=== PATIENT | male | born 1955 | race Caucasian/White ===

== ENCOUNTER 2016-11-02 10:06 | Day surgery (SDC) | END 2016-11-02 12:07 | disposition home or self-care (01) | DX: Z12.11 Encounter for screening for malignant neoplasm of colon (principal); K21.0 Gastro-esophageal reflux disease with esophagitis; K64.4 Residual hemorrhoidal skin tags; K25.9 Gastric ulcer, unspecified as acute or chronic, without hemorrhage or perforation; I10 Essential (primary) hypertension; J44.9 Chronic obstructive pulmonary disease, unspecified; F41.8 Other specified anxiety disorders | CPT/HCPCS: 43239; 45378; 88305; 88312; 88313; Z7610 ==

== ENCOUNTER 2016-11-18 15:57 | Inpatient (IN) | payer OTHER ==
[~2016-11-18] VITALS: Ht 180.3 cm; Wt 76.0 kg
[~2016-11-18 15:57] MED LIST: 2 INHALERS INH; ASPI81TA3 PO; CITA-104 PO; GABAPENTIN PO; LISI40TA9 PO; LORA10CA PO; OMEP20CA16 PO
[2016-11-18 20:00] VITALS: BP 139/86; RESP 16
[2016-11-18] MEDS ORDERED: DEXTROSE 5%-0.45% NACL 1,000 ML IV SCH (21:00)
[2016-11-18] MEDS: morphine 4 MG/ML VIAL IV PRN (21:14)
[2016-11-18] MEDS ORDERED: ONDANSETRON 4 MG INJ IV PRN (22:30)
[2016-11-18] MEDS ORDERED: LORAZEPAM 2 MG INJ IV ONE (22:30)
[2016-11-18] MEDS ORDERED: KETOROLAC 30 MG INJ IV PRN (22:30)
[2016-11-19] VITALS (9 sets, daily range): BP systolic 106–138; BP diastolic 60–76; PULSE 82–90; RESP 18–20; Ht 180.3 cm; Wt 76.0 kg
[2016-11-19] MEDS ORDERED: DICY10CA60 PO (02:42)
[2016-11-19] MEDS ORDERED: METH500T8 PO (02:42)
[2016-11-19] MEDS ORDERED: METO5TAB11 PO (02:42)
[2016-11-19] MEDS ORDERED: IPRA4AER INHALATION (02:42)
[2016-11-19] MEDS ORDERED: BECL8.7A5 INH (02:42)
[2016-11-19] MEDS ORDERED: DEXTROSE 5%-0.9% NACL 1,000 ML IV SCH (06:00)
[2016-11-19 06:08] LABS: ADD SCAN DIFF NO
[2016-11-19 06:17] LABS: BASOPHILS % 0.1 % (0.0-2.0); EOSINOPHILS % 0.2 % (0.0-7.0); HEMATOCRIT 35.6 % (42.0-52.0); HEMOGLOBIN 12.9 g/dl (14.0-18.0); LYMPHOCYTES # 1.8 10^3/ul (0.8-2.9); LYMPHOCYTES % 16.8 % (15.0-51.0); MEAN CORPUSCULAR HEMOGLOBIN 32.3 pg (29.0-33.0); MEAN CORPUSCULAR HGB CONC 36.2 g/dl (32.0-37.0); MEAN CORPUSCULAR VOLUME 89.2 fl (82.0-101.0); MEAN PLATELET VOLUME 9.1 fl (7.4-10.4); MONOCYTE # 1.1 10^3/ul (0.3-0.9); MONOCYTES % 10.9 % (0.0-11.0); NEUTROPHIL # 7.5 10^3/ul (1.6-7.5); NEUTROPHILS % 71.6 % (39.0-77.0); PLATELET COUNT 319 10^3/UL (140-415); RED BLOOD COUNT 3.99 10^6/ul (4.70-6.10); RED CELL DISTRIBUTION WIDTH 11.9 % (11.5-14.5); WHITE BLOOD COUNT 10.4 10^3/ul (4.8-10.8)
--- NOTE | 2016-11-19 06:23 | HP ---
DATE OF ADMISSION: 11/18/2016 TIME SEEN: 2300 CHIEF COMPLAINT: Abdominal pain, distention, and nausea. HISTORY OF PRESENT ILLNESS: The patient is a 61-year-old male with a history of COPD, GERD, hyperte nsion, diabetes, anxiety, depression, and surgical history of appendectomy who was transferred from [facility] for insurance reasons after he presented with abdominal pain, distention, and na usea. He said symptoms have been going on for a few days. At [place], CT abdomen and pelvis was done which showed distal small bowel obstruction. The patient's abdomen is somewhat distended. Of note, the patient was here 3 weeks ago and had screening colonoscopy which showed minimal external hemorrhoids. The patient denied fever, chills, chest pain, shortness of breath. He does, however, report a history of urinary retention and difficulty urinating. Once he was admitted, a bladder sca nner showed 600 mL of urine. The NG tube to low intermittent suction has been ordered. REVIEW OF SYSTEMS: A 12-point review was performed and is negative except as mentioned in HPI. PAST MEDICAL HISTORY: As per HPI. PAST SURGICAL HISTORY: Appendectomy and nose surgery. SOCIAL HISTORY: He drinks occasionally. He also has a history of marijuana and methamphetamine use . Last meth use was a month ago and marijuana 2 days ago. ALLERGIES: NO KNOWN DRUG ALLERGIES. HOME MEDICATIONS: 1. Claritin. 2. Albuterol. 3. Bentyl. 4. Methocarbamol. 5. Lisinopril. 6. Aspirin. 7. Citalopram q.4h. 8. Reglan. 9. Prilosec. 10. Gabapentin. PHYSICAL EXAMINATION: VITAL SIGNS: Stable. GENERAL: The patient slightly looks comfortable; however, answering questions appropriately. HEENT: No obvious head deformity. Pupils are reactive to light. Extraocular muscles intact. CARDIOVASCULAR: Slightly tachycardic with regular rhythm. LUNGS: Clear. ABDOMEN: Distended, tender to palpation. There are hypoactive bowel sounds. EXTREMITIES: No edema. NEUROLOGIC: No focal deficits. LABORATORY: From [facility] shows a sodium of 120. IMAGING: From outside hospital shows distal small bowel obstruction IMPRESSION: 1. Distal small bowel obstruction. 2. Abdominal pain and distention, secondary to above. 3. Hyponatremia, per outside hospital results. 4. History of chronic obstructive pulmonary disease. 5. History of gastroesophageal reflux disease. 6. History of hypertension. 7. History of anxiety and depression. 8. History of diabetes. PLAN: Will keep n.p.o. with IV fluid. We will provide pain medication and antiemetics as needed. N G tube to low intermittent suction. We will place a surgical consult. Will hold his oral medicatio n for now. Further workup and management per clinical course. Dictated By: JEFFERSON MURGUIA/NUZHAT Conf#: [id number] DID#: [id number]
[2016-11-19 06:25] LABS: POTASSIUM 4.6 mmol/L (3.5-5.1)
[2016-11-19 06:27] LABS: CREATININE 1.19 mg/dl (0.61-1.24)
[2016-11-19 06:28] LABS: ALBUMIN/GLOBULIN RATIO 1.21; BILIRUBIN,INDIRECT 0.3 mg/dl (0-1.1); BILIRUBIN,TOTAL 0.3 mg/dl (0.2-1.3); TOTAL PROTEIN 7.3 g/dl (6.1-8.1)
[2016-11-19 06:29] LABS: CALCIUM 9.2 mg/dl (8.4-10.2)
[2016-11-19] MEDS ORDERED: BARIUM SULF 2% 450 ML BTL (BERRY SMOOTHIE) PO ONE (06:30)
[2016-11-19] MEDS: morphine 4 MG/ML VIAL IV PRN ×3 (06:36→18:16)
[2016-11-19] MEDS ORDERED: DEXTROSE 5%-0.9% NACL 1,000 ML IV ONE (07:30)
[2016-11-19] MEDS ORDERED: NON-FORMULARY/PATIENT OWN MED (Albuterol/Ipratropium* (Combivent Respimat*) 2 PUFF) INHALATION SCH (09:00)
[2016-11-19] MEDS ORDERED: BECLOMETHASONE DIP INH SCH (09:00)
[2016-11-19] MEDS ORDERED: LORAZEPAM 2 MG INJ IV ONE (09:00)
[2016-11-19] MEDS: MOMETASONE 0.24 GM INHALER INH SCH ×2 (09:00→22:32)
[2016-11-19] MEDS: IPRATROPIUM (HFA) 12.9 GM INHALER INH SCH (09:00)
[2016-11-19] MEDS: ALBUTEROL HFA 8 GM INHALER INH SCH (09:00)
--- NOTE | 2016-11-19 12:11 | PN ---
Date/Time of Note Date/Time of Note DATE: 11/19/16 TIME: 12:05 Assessment/Plan VTE Prophylaxis VTE Prophylaxis Intervention: SCD's Lines/Catheters IV Catheter Type (from Nrs): Peripheral IV Urinary Cath still in place: No Assessment/Plan Assessment/Plan 1. Distal small bowel obstruction. 2. Severey Hyponatremia with Na 120 3. Hyponatremia, per outside hospital results. 4. History of chronic obstructive pulmonary disease. 5. History of gastroesophageal reflux disease. 6. History of hypertension. 7. History of anxiety and depression. 8. History of diabetes Plan: telemetry monitoring, NS with KCL 10mEQ At 80 cc/hr pt recently had a colonoscopy done on 11/02/[address]Nagaraja Santo - will request consult for him NG tube placement as soon as possible and place it on intermittent suction Ward catheter placement ativan 2 mg iV x1 now then repeat one more dose if needed General surgery has been consulted from ED Subjective 24 Hr Interval Summary Free Text/Dictation not able to place NG tube, C/o abdominal pain Exam/Review of Systems Vital Signs Vitals Vital Signs Date Time Temp Pulse Resp B/P Pulse Ox O2 Delivery O2 Flow Rate FiO2 11/19/16 11:00 97.2 85 20 118/63 93 11/19/16 05:00 Room Air Intake and Output 11/18/16 11/18/16 11/19/16 15:00 23:00 07:00 Intake Total 750 ml Output Total 600 ml Balance 150 ml Exam GENERALuncomfortable due to abdominal pain HEENT: No obvious head deformity. Pupils are reactive to light. Extraocular muscles intact. CARDIOVASCULAR: Slightly tachycardic with regular rhythm. LUNGS: Clear. ABDOMEN: Distended, tender to palpation. There are hypoactive bowel sounds. EXTREMITIES: No edema. NEUROLOGIC: No focal deficits. Results Result Diagram: 11/19/16 0555 11/19/16 0555 Results 24 hrs Laboratory Tests Test 11/19/16 05:55 White Blood Count 10.4 Red Blood Count 3.99 L Hemoglobin 12.9 L Hematocrit 35.6 L Mean Corpuscular Volume 89.2 Mean Corpuscular Hemoglobin 32.3 Mean Corpuscular Hemoglobin Concent 36.2 Red Cell Distribution Width 11.9 Platelet Count 319 Mean Platelet Volume 9.1 Neutrophils % 71.6 Lymphocytes % 16.8 Monocytes % 10.9 Eosinophils % 0.2 Basophils % 0.1 Nucleated Red Blood Cells % 0.0 Neutrophils # 7.5 Lymphocytes # 1.8 Monocytes # 1.1 H Eosinophils # 0.0 Basophils # 0.0 Nucleated Red Blood Cells # 0.0 Sodium Level 120 L Potassium Level 4.6 Chloride Level 90 L Carbon Dioxide Level 20 L Anion Gap 15 Blood Urea Nitrogen 19 Creatinine 1.19 Glucose Level 128 Calcium Level 9.2 Total Bilirubin 0.3 Direct Bilirubin 0.00 Indirect Bilirubin 0.3 Aspartate Amino Transf (AST/SGOT) 25 Alanine Aminotransferase (ALT/SGPT) 32 Alkaline Phosphatase 114 Total Protein 7.3 Albumin 4.0 Globulin 3.30 H Albumin/Globulin Ratio 1.21 Medications Medications Current Medications Morphine Sulfate (morphine) 4 mg Q4H PRN IV PAIN Last administered on 11/19/16 06:36; Admin Dose 4 MG; Start 11/18/16 at 21:00 Ketorolac Tromethamine (Toradol) 30 mg Q6H PRN IV PAIN Last administered on 11/18 22:16; Admin Dose 30 MG; Start 11/18/16 at 22:30; Stop 11/21/16 at 22:29 Ondansetron HCl (Zofran Inj) 4 mg Q6H PRN IV NAUSEA AND/OR VOMITING; Start 11/18 at 22:30 Albuterol (Ventolin Hfa) 2 puff DAILY INH ; Start 11/19/16 at 09:00 Ipratropium [place] (Atrovent Hfa) 2 puff DAILY INH ; Start 11/19/16 at 09:00 Mometasone Furoate (Asmanex) 1 puff BID INH ; Start 11/19/16 at 09:00 ZAC DOLAN MD Nov 19, 2016 12:11
[2016-11-19] MEDS ORDERED: IOHEXOL 300MG/ML 30 ML BTL ONE (12:20)
[2016-11-19] MEDS ORDERED: ONDANSETRON 4 MG INJ IV PRN (12:30)
[2016-11-19] MEDS: LORAZEPAM 2 MG INJ IV PRN ×2 (12:46→22:30)
--- NOTE | 2016-11-19 14:45 | RADRPT ---
PROCEDURE: XR Chest. CLINICAL INDICATION: Check nasogastric tube position. TECHNIQUE: Single frontal view. COMPARISON: None. FINDINGS: The nasogastric tube tip is in the stomach. The lungs are clear. The heart size is normal. There is no pleural effusion. There is no pneumothorax. IMPRESSION: 1. Nasogastric tube tip in the stomach. 2. Clear lungs. RPTAT: QQ .Mando Edge MD, MD Date Time Electronically viewed and signed by .Mando Edge MD, MD on 11/19/2016 14:45 .R/
[2016-11-19] MEDS: POTASSIUM CHLORIDE 10 MEQ in SOD CHLORIDE 0.45% 1,000 ML IV SCH (15:12)
[2016-11-19] MEDS ORDERED: SOD CHLORIDE 0.9% 100 ML ONE (18:08)
[2016-11-19] MEDS ORDERED: IOHEXOL 300MG/ML 150 ML BTL ONE (18:08)
--- NOTE | 2016-11-19 19:52 | RADRPT ---
AMENDMENT: 11/19/2016 9:38:46 PM Sandor Ruano M.d Correction: FINDINGS: Small bowel: and IMPRESSION: High-grade small bowel obstruction of the distal ileum with the transition point in the right anteri or mid pelvis with approximate 8 cm long segment of wall thickening in the distal ileum distal to th e transition point and milder wall thickening in the distal ileum proximal to the transition point T he findings could be secondary to infectious/inflammatory bowel disease or possibly neoplasm. Dilat ed small bowel loops containing air and fluid with maximum diameter approximately 6.1 cm. Please se e above. PROCEDURE: CT Abdomen and Pelvis with contrast. CLINICAL INDICATION: Small bowel obstruction TECHNIQUE: CT scan of the abdomen and pelvis with contrast was performed on a multidetector high-r Synergy Hubolution CT scanner. 90 cc of Omnipaque-300 was injected intravenously.. Oral contrast was administ ered. Coronal and sagittal reformatted images were obtained from the axial source images. Images wer e reviewed on a high-resolution PACS workstation. The total exam CTDI equals 11.88 mGy and the tota l exam DLP equals 682.25 mGy-cm. One or more of the following dose reduction techniques were used: - Automated exposure control. - Adjustment of the mA and/or kV according to patient size. - Use of iterative reconstruction technique. COMPARISON: None. FINDINGS: Lungs: Mild dependent atelectasis is seen in the posterior lower lungs. Linear atelectasis/fibrosis is seen at the lung bases. Liver: There is a 7 mm cyst in the upper left lobe of the liver. No imaging follow-up of this is re commended . Gallbladder: There is vicarious excretion of contrast material into the gallbladder. Spleen: No abnormality seen. Stomach: Nasogastric tube in stomach. Pancreas: No abnormality seen. Adrenals: No abnormality seen. Kidneys: No abnormality seen. Abdominal aorta: No aneurysm seen. Atherosclerotic calcification is seen. Lymph nodes: Several less than 1 cm short axis lymph nodes are apparent in the mesentery in the rig ht lower quadrant/upper right pelvis. Small bowel: There is a high-grade small bowel obstruction of the distal ileum with the transition p oint in the right anterior mid pelvis with no wall thickening in the distal ileum. The findings cou ld be secondary to infectious/inflammatory bowel disease or possibly neoplasm. Dilated small bowel loops containing air and fluid with maximum diameter approximately 6.1 cm Colon: No abnormality seen. Appendix: Appendectomy. Bladder: No abnormality seen Pelvic organs: No abnormality seen Ascites: None seen. No pneumoperitoneum is seen. Osseous structures: Lumbar spondylosis. Mild degenerative changes at sacroiliac joints and hips. S mall scattered likely bone islands. Mild curvature of lumbar spine with convexity to the left. Very small umbilical hernia containing fat only. IMPRESSION: High-grade small bowel obstruction of the distal ileum with the transition point in the right anteri or mid pelvis with no wall thickening in the distal ileum. The findings could be secondary to infec tious/inflammatory bowel disease or possibly neoplasm. Dilated small bowel loops containing air and fluid with maximum diameter approximately 6.1 cm. Please see above. RPTAT: HJES .Sandor Ruano MD, Date Time Electronically viewed and signed by .Sandor Ruano MD, on 11/19/2016 21:38 .S/
[2016-11-19] MEDS: metroNIDAZOLE 500 MG/NS (PMX) 100 ML IVPB SCH (22:32)
[2016-11-19] MEDS: METHYLPREDNISOLONE 40 MG INJ IV SCH (22:32)
[2016-11-19] MEDS: LEVOFLOXACIN 500MG/D5W (PMX) 100 ML IVPB SCH (22:37)
--- NOTE | 2016-11-19 23:05 | CONS ---
DATE OF ADMISSION: 11/18/2016 DATE OF CONSULTATION: TYPE OF CONSULTATION: Gastroenterology. Dear Dr. Pickering: Thank you for asking me to see Mr. El in GI consultation. HISTORY OF PRESENT ILLNESS: The patient, as you know, is a 61-year-old white gentleman has been exp eriencing abdominal pain, abdominal distention and lack of bowel movement for the past several days, although he did say he had a bowel movement 2 days ago. He had a colonoscopy about 15 days ago whic h was unremarkable. He developed abdominal pain and distention. He went to the emergency room at [facility]. He was given some treatment which made him feel good and then he continued to work. Again today he went to the emergency room at [facility], where the CAT sca n of the abdomen showed evidence of a small-bowel obstruction. At this time, the patient continues to complain of abdominal pain, no bowel movement for 2 days and not passing gas now. PAST MEDICAL HISTORY: He had appendectomy. PHYSICAL EXAMINATION: GENERAL: The patient is a 61-year-old white gentleman who at this time is alert, is well built. VITAL SIGNS: He is afebrile and G-tube showing evidence of dark greenish liquid. Pulse is 78, bloo d pressure is 110/78. CARDIOVASCULAR: Normal heart sounds. RESPIRATORY: Normal breath sounds. ABDOMEN: Showed a soft abdomen which is distended and no rebound tenderness. Surgical scar noted i n the right lower abdomen from his esophagectomy. RECTAL: Exam showed empty rectum. LABORATORY WORKUP: WBC count 10,400, hemoglobin 12.9. Chemistry: Potassium is 4.6. Sodium is 120 , BUN 19, bilirubin 0.3. The CAT scan of the abdomen at [facility] showed small-bowel obstruction. The repeat CAT scan of abdomen pending from [facility]. Rule out adhesions, rule out neoplasm. PLAN: At this time, discussed with Dr. Gee who is a surgeon and he will follow the patient. Onc e again, doctor, thank you for this consultation. Dictated By: HARRIS DWYER MD NC/NTS Conf#: [id number] DID#: [id number] CC: LIANG GEE MD;*EndCC*
[2016-11-20] VITALS (12 sets, daily range): BP systolic 130–160; BP diastolic 63–86; PULSE 85–107; RESP 16–20
--- NOTE | 2016-11-20 03:13 | CONS ---
DATE OF ADMISSION: 11/18/2016 DATE OF CONSULTATION: 11/19/2016 REQUESTING PHYSICIAN: Dr. Danny Bautista and Dr. Reuben Leyva HISTORY OF PRESENT ILLNESS: This is a 61-year-old male who was transferred from [facility] to [facility] because of insurance problems, but the patient was diagnosed with a bdominal pain, distention, and nausea and distal small bowel obstruction. Also, when the patient pr esented to the hospital here, a bladder scan showed 600 mL of urine inside his bladder. Attempts to insert a Ward catheter were not successful. Therefore, a urological consultation was requested. The patient presently appears to be somehow confused. He just pulled out his NG tube. He denies candelaria michael a problem with his urination before. The review of his record indicates that he was at this spital about 3 weeks earlier and underwent a colonoscopy and was diagnosed with minimal external hem orrhoids. PAST MEDICAL HISTORY: He does have a history of COPD, gastroesophageal reflux disease, hypertension , diabetes, anxiety, and depression. PAST SURGICAL HISTORY: Includes a history of appendectomy. The patient also has had nose surgery i n the past. REVIEW OF SYSTEMS: Except for what is mentioned above, all the other systems were mentioned negativ e. SOCIAL HISTORY: Drinks occasionally. He does use marijuana and methamphetamine sometimes. HOME MEDICATIONS: Included 1. Claritin. 2. Albuterol. 3. Bentyl. 4. Methocarbamol. 5. Lisinopril. 6. Aspirin. 7. Citalopram. 8. Reglan. 9. Prilosec. 10. Gabapentin. HOSPITAL MEDICATIONS: Include 1. Protonix. 2. Potassium chloride. 3. Zofran. 4. Lorazepam. 5. Albuterol. 6. Ipratropium. 7. Asmanex. 8. Toradol. 9. Zofran 10. Morphine. PHYSICAL EXAMINATION: GENERAL: Reveals a 61-year-old male. He weighs about 76 kilograms. His height is 71. ABDOMEN: A little distended. The patient again just pulled out his NG tube. GENITALIA: Appear normal. EXTREMITIES: Reveal no edema. LABORATORY DATA: His CBC shows a white count of 10.4, hemoglobin 12.9, hematocrit 35.6. BUN is 19, creatinine 1.19, sodium 120, potassium 4.6, chloride 90, CO2 20. Abdominal CT scan showed high gra de small bowel obstruction of the distal ileum with a transition point in the right anterior mid pel vis with no wall thickening of the distal ileum. The findings could be secondary to infectious infl ammatory bowel disease or possibly neoplasm, dilated small bowel loops containing air and fluid with maximal diameter of approximately 6.1 cm. IMPRESSION: Small bowel obstruction and possible urinary retention. PLAN: I went ahead and prepped his genital area and gave him lidocaine gel in the urethra, and then I inserted a 14-Grenadian coude catheter, and that went in without any difficulty. Clear urine was ob tained and sent for culture and sensitivity. Dictated By: PARAG TURNER/NUZHAT Conf#: [id number] DID#: [id number]
--- NOTE | 2016-11-20 03:48 | CONS ---
DATE OF ADMISSION: 11/18/2016 DATE OF CONSULTATION: 11/19/2016 HISTORY OF PRESENT ILLNESS: Mr. El is a 61-year-old male who went to [facility] emergency room on Saturday due to abdominal pain, distention, and nausea. He states he has had abdominal symptoms for approximately 9 months where he gets constipated and has difficulty passing gas and having a nori wel movement. He had a recent colonoscopy 2 weeks ago which was normal. He was given some kind of cocktail in the ER and discharged but came back on Saturday with similar symptoms. He was then transf erred to our hospital. PAST MEDICAL HISTORY: Significant for COPD, GERD, hypertension, diabetes, anxiety, and depression. PAST SURGICAL HISTORY: Open appendectomy in the distant past and no surgery. SOCIAL HISTORY: Drinks occasionally. Also, history of marijuana and methamphetamine use. MEDICATIONS: 1. Claritin. 2. Albuterol. 3. Bentyl. 4. Methocarbamol. 5. Lisinopril. 6. Aspirin. 7. Citalopram. 8. Reglan. 9. Prilosec. 10. Gabapentin. ALLERGIES: NO KNOWN DRUG ALLERGIES. PHYSICAL EXAMINATION: GENERAL: The patient is a well-developed, well-nourished male in no apparent distress. VITAL SIGNS: He is currently afebrile. Vital signs stable. CHEST: Clear to auscultation bilaterally. HEART: Regular rhythm. ABDOMEN: Soft, mildly distended but with minimal tenderness. LABORATORY DATA: Revealed a white count of 11, hematocrit 36, platelets of 319. Sodium 120, potass ium 4.6, chloride 90, CO2 20, BUN and creatinine 19 and 1.2, and a glucose of 128. He did have a CT today with oral and IV contrast which revealed a small bowel obstruction of the distal ileum with a transition point in the right anterior mid pelvis with wall thickening of the distal ileum. This c ould be secondary to infectious or inflammatory bowel disease or possible neoplasm. ASSESSMENT AND PLAN: Mr. El is a 61-year-old male with a small bowel obstruction, likely infecti ous or inflammatory in etiology. 1. IV antibiotics. 2. IV steroids. 3. Would try to treat conservatively. This most likely should respond to IV antibiotics or IV ster oids. If it does not resolve, may require laparotomy. I discussed also with Dr. Santo the patient may need a colonoscopy for diagnosis as well. Dictated By: LIANG SIMMONS/NUZHAT Conf#: [id number] DID#: [id number]
[2016-11-20] MEDS: METHYLPREDNISOLONE 40 MG INJ IV SCH ×3 (05:36→22:57)
[2016-11-20] MEDS: PANTOPRAZOLE 40 MG INJ IV SCH (05:36)
[2016-11-20] MEDS: metroNIDAZOLE 500 MG/NS (PMX) 100 ML IVPB SCH ×3 (05:37→22:56)
[2016-11-20] MEDS: POTASSIUM CHLORIDE 10 MEQ in SOD CHLORIDE 0.45% 1,000 ML IV SCH (05:37)
[2016-11-20] MEDS: LORAZEPAM 2 MG INJ IV PRN (06:03)
--- NOTE | 2016-11-20 08:57 | RADRPT ---
PROCEDURE: Chest Radiograph. CLINICAL INDICATION: Nasogastric tube placement TECHNIQUE: Single frontal chest radiograph. COMPARISON: Chest radiograph 11/19/2016 FINDINGS: The cardiomediastinal silhouette is within normal limits. A nasogastric tube is in place. The dist al tip is at the level of the gastroesophageal junction and the proximal side hole is in the mid to distal esophagus. No infiltrate or effusion is seen. The bones are intact. IMPRESSION: 1. Nasogastric tube with distal tip at the gastroesophageal junction. Recommend advancement by tone roximately 8 cm. 2. No evidence of acute cardiopulmonary disease. RPTAT: KK .Lars Menjivar MD, MD Date Time Electronically viewed and signed by .Lars Menjivar MD, on 11/20/2016 08:57 .B/
[2016-11-20] MEDS: ALBUTEROL HFA 8 GM INHALER INH SCH (09:00)
[2016-11-20] MEDS: MOMETASONE 0.24 GM INHALER INH SCH ×2 (09:00→22:57)
[2016-11-20] MEDS: IPRATROPIUM (HFA) 12.9 GM INHALER INH SCH (09:00)
--- NOTE | 2016-11-20 12:43 | RADRPT ---
PROCEDURE: XR Abdomen. CLINICAL INDICATION: Small bowel obstruction. TECHNIQUE: Two views. AP supine and AP erect. COMPARISON: CT scan of the abdomen and pelvis dated 11/19/2016 which demonstrated small bowel obst ruction with transition point in the right anterior pelvis. FINDINGS: There is no free air. The nasogastric tube tip is in the stomach. There are multiple dilated loops of small bowel with air-fluid levels consistent with small bowel ob struction as seen on the prior study. There are no abnormal calcifications overlying the urinary tracts. There are degenerative changes of the spine. IMPRESSION: 1. Nasogastric tube tip in the stomach. 2. Small bowel obstruction, similar to 11/19/2016. RPTAT: QQ .Mando Edge MD, MD Date Time Electronically viewed and signed by .Mando Edge MD, MD on 11/20/2016 12:31 .R/
--- NOTE | 2016-11-20 15:12 | PN ---
Date/Time of Note Date/Time of Note DATE: 11/20/16 TIME: 15:08 Assessment/Plan VTE Prophylaxis VTE Prophylaxis Intervention: SCD's Lines/Catheters IV Catheter Type (from Nrsg): Peripheral IV Urinary Cath still in place: Yes Reason Cath still needed: urinary retention Assessment/Plan Assessment/Plan 1. Distal small bowel obstruction. 2. Severey Hyponatremia with Na 120 3. Hyponatremia, per outside hospital results. 4. History of chronic obstructive pulmonary disease. 5. History of gastroesophageal reflux disease. 6. History of hypertension. 7. History of anxiety and depression. 8. History of diabetes Plan: telemetry monitoring, NS with KCL 10mEQ At 80 cc/hr s/p NG tube placement, S/p schuster catheter placement, by Urology X Ray KUB showed Small bowel obstruction, will order stat BMP and CBC and If Na improving, then pt is cleared to have surgery for bowel obstruciton with appropriate surgical risks and complications, discussed with patient at bedside, currently he is on NS with KCl appreciate general surgery and GI help will follow up Subjective 24 Hr Interval Summary Free Text/Dictation s/p NG Tube placement, KUB showed small bowel obstruction, had a Urinary retention s/p schuster catheter placement by Urolgoy Exam/Review of Systems Vital Signs Vitals Vital Signs Date Time Temp Pulse Resp B/P Pulse Ox O2 Delivery O2 Flow Rate FiO2 11/20/16 12:37 95 11/20/16 11:25 98.3 16 135/63 98 11/19/16 05:00 Room Air Intake and Output 11/19/16 11/19/16 11/20/16 15:00 23:00 07:00 Intake Total 350 ml 650 ml 900 ml Output Total 150 ml 1100 ml Balance 350 ml 500 ml -200 ml Exam GENERALuncomfortable due to abdominal pain HEENT: No obvious head deformity. Pupils are reactive to light. Extraocular muscles intact. CARDIOVASCULAR: Slightly tachycardic with regular rhythm. LUNGS: Clear. ABDOMEN: Distended, tender to palpation. There are hypoactive bowel sounds. EXTREMITIES: No edema. NEUROLOGIC: No focal deficits. Results Result Diagram: 11/19/16 0555 11/19/16 0555 Medications Medications Current Medications Morphine Sulfate (morphine) 4 mg Q4H PRN IV PAIN Last administered on 11/19/16t 18:16; Admin Dose 4 MG; Start 11/18/16 at 21:00 Ketorolac Tromethamine (Toradol) 30 mg Q6H PRN IV PAIN Last administered on 11/18 22:16; Admin Dose 30 MG; Start 11/18/16 at 22:30; Stop 11/21/16 at 22:29 Ondansetron HCl (Zofran Inj) 4 mg Q6H PRN IV NAUSEA AND/OR VOMITING; Start 11/18 at 22:30 Albuterol (Ventolin Hfa) 2 puff DAILY INH ; Start 11/19/16 at 09:00 Ipratropium [place] (Atrovent Hfa) 2 puff DAILY INH ; Start 11/19/16 at 09:00 Mometasone Furoate 1 puff 1 puff BID INH Last administered on 11/19/16 22:32; Admin Dose 1 PUFF; Start 11/19/16 at 09:00 Potassium Chloride/Sodium Chloride (KCl/1/2 NS) 1,005 ml @ 70 mls/hr [id number] IV Last administered on 11/20/16 05:37; Admin Dose 70 MLS/HR; Start 11/19/16 at 13:00 Pantoprazole (Protonix Iv) 40 mg DAILY@06 IV Last administered on 11/20/16 05: 36; Admin Dose 40 MG; Start 11/20/16 at 06:00 Ondansetron HCl (Zofran Inj) 4 mg Q4H PRN IV NAUSEA AND/OR VOMITING; Start 11/19 at 12:30 Lorazepam 1 mg 1 mg Q4H PRN IV severe agitation/Restlessness Last administered on 11/20/16 06:03; Admin Dose 1 MG; Start 11/19/16 at 12:30 Levofloxacin/ Dextrose 100 ml @ 100 mls/hr Q24H IVPB Last administered on 22:37; Admin Dose 100 MLS/HR; Start 11/19/16 at 23:00 Metronidazole (Flagyl 500 Mg (Pmx)) 100 ml @ 100 mls/hr Q8 IVPB Last administered on 11/20/16 05:37; Admin Dose 100 MLS/HR; Start 11/19/16 at 22:00 Methylprednisolone Sodium Succinate (Solu-Medrol) 40 mg Q8 IV Last administered on 11/20/16t 05:36; Admin Dose 40 MG; Start 11/19/16 at 22:00 ZAC DOLAN MD Nov 20, 2016 15:12
[2016-11-20 15:58] LABS: ADD SCAN DIFF NO
[2016-11-20 16:01] LABS: HEMATOCRIT 36.4 % (42.0-52.0); HEMOGLOBIN 12.7 g/dl (14.0-18.0); LYMPHOCYTES # 1.3 10^3/ul (0.8-2.9); LYMPHOCYTES % 22.9 % (15.0-51.0); MEAN CORPUSCULAR HEMOGLOBIN 32.2 pg (29.0-33.0); MEAN CORPUSCULAR HGB CONC 34.9 g/dl (32.0-37.0); MEAN CORPUSCULAR VOLUME 92.4 fl (82.0-101.0); MEAN PLATELET VOLUME 9.2 fl (7.4-10.4); MONOCYTE # 0.4 10^3/ul (0.3-0.9); MONOCYTES % 6.4 % (0.0-11.0); NEUTROPHILS % 70.3 % (39.0-77.0); PLATELET COUNT 335 10^3/UL (140-415); RED BLOOD COUNT 3.94 10^6/ul (4.70-6.10); RED CELL DISTRIBUTION WIDTH 12.1 % (11.5-14.5); WHITE BLOOD COUNT 5.6 10^3/ul (4.8-10.8)
[2016-11-20 16:12] LABS: POTASSIUM 5.2 mmol/L (3.5-5.1)
[2016-11-20 16:15] LABS: CALCIUM 9.2 mg/dl (8.4-10.2); CREATININE 0.97 mg/dl (0.61-1.24)
--- NOTE | 2016-11-20 16:18 | SP ---
DATE OF PROCEDURE: 11/20/2016 SUBJECTIVE: This is hospital day #1 for Mr. El for a small-bowel obstruction. The patient is fe eling much better. He had a bowel movement and is quite hungry. OBJECTIVE: VITAL SIGNS: He is afebrile. Vital signs stable. He has had 1100 out in urine and only 150 out hi s NG tube. ABDOMEN: Soft, nondistended and nontender. IMAGING: Abdominal series today does show persistent obstruction. ASSESSMENT AND PLAN: Mr. El is a 61-year-old male with a resolving small-bowel obstruction. 1. Plan to start on clear liquids with an NG tube clamp trial. 2. Surgery unlikely necessary as this is more likely infectious or inflammatory bowel disease based on CT findings. 3. Appreciate GI consultation. 4. We will discuss with the primary care team as well. Dictated By: LIANG SIMMONS/NTS Conf#: [id number] DID#: [id number]
--- NOTE | 2016-11-20 17:17 | PN ---
DATE: 11/20/2016 SUBJECTIVE: Urinary retention and patient has small-bowel obstruction that is being managed by the medical team. The patient was sitting on the commode and he stated he had a bowel movement while he was in bed and a small one in the commode. The Ward catheter that he had is still in place. OBJECTIVE: VITAL SIGNS: His temperature is 97.8, blood pressure 149/81, pulse is 91, respiration is 16. GENITOURINARY: The Ward catheter, again, is draining clear urine. LABORATORY DATA: Urine culture, no growth after 24 hours. CBC shows a white count of 5.6, hemoglob in 12.7, hematocrit 36.4. BUN is 19, creatinine 0.97, sodium 124, potassium 5.2, chloride 91, CO2 2 0. IMPRESSION: Urinary retention. Patient does have the Ward catheter and he is on Levaquin, Flagyl for his bowel, Protonix and Solu-Medrol. We will start him on Flomax in a sense to prepare him to r emove the Ward catheter and see if he could void when he is ready to have the catheter removed. Dictated By: PARAG ESPAÑA MD BB/NUZHAT Conf#: [id number] DID#: [id number]
[2016-11-20] MEDS: SOD CHLORIDE 0.9% 1,000 ML IV SCH (17:40)
--- NOTE | 2016-11-20 21:04 | CONS ---
DATE OF ADMISSION: 11/18/2016 DATE OF CONSULTATION: CLINICAL IMPRESSION: The patient presenting with history of vomiting, abdominal pain. CAT scan of the abdomen showed evidence of a small-bowel obstruction at another hospital. At this time, the patient said he has had a good bowel movement today and has been passing gas and a bdomen is much less distended. IMAGING: CAT scan of the abdomen shows evidence of thickening and edema of the distal small bowel a nd with the proximal small bowel dilatation. LABORATORY WORKUP: The WBC count is today 5600, hemoglobin 12.7. Potassium 5.2, sodium 124. The patient is currently receiving D5 normal saline. Probably needs to be changed to normal saline. CLINICAL IMPRESSION: Small bowel obstruction seems to be resolving, probably secondary to ileitis o f some kind, whether Crohn disease or infectious ileitis is not very clear. Neoplasm should be rule d out. PLAN: At this time, recommend repeat KUB and see if the NG tube is in the right place. Apparently, the patient already has been started on clear liquids. We would probably have to do colonoscopy in the near future. Once again, doctor, thank you for this consultation. Dictated By: HARRIS DWYER MD NC/NTS Conf#: [id number] DID#: [id number] CC: HARRIS DWYER MD; ALEJANDRO DONALDSON MD;*End*
--- NOTE | 2016-11-20 21:23 | RADRPT ---
PROCEDURE: Abdomen x-ray CLINICAL INDICATION: Small bowel obstruction. TECHNIQUE: Single frontal view the abdomen COMPARISON: Abdomen series dated today, about [address] examination the abdomen pelvis dated 11/19/2016. FINDINGS: Persistent small bowel obstruction pattern, with increased air in loops of small bowel. Partially v isualized nasogastric tube over expected location of the stomach. The lung bases are clear. No unus ual calcifications are identified over the abdomen. IMPRESSION: Persistent small bowel obstruction. RPTAT: [facility]U Physician Allie Date Time Electronically viewed and signed by Chris Singer Physician on 11/20/2016 21:22 RS/
[2016-11-20] MEDS: LEVOFLOXACIN 500MG/D5W (PMX) 100 ML IVPB SCH (22:57)
[2016-11-21] VITALS (12 sets, daily range): BP systolic 135–155; BP diastolic 70–84; PULSE 75–88; RESP 18–20
[2016-11-21] MEDS: LORAZEPAM 2 MG INJ IV PRN ×3 (00:09→20:37)
[2016-11-21] MEDS: METHYLPREDNISOLONE 40 MG INJ IV SCH ×3 (06:17→21:58)
[2016-11-21] MEDS: metroNIDAZOLE 500 MG/NS (PMX) 100 ML IVPB SCH ×3 (06:18→21:58)
[2016-11-21] MEDS: PANTOPRAZOLE 40 MG INJ IV SCH (06:18)
[2016-11-21] MEDS: SOD CHLORIDE 0.9% 1,000 ML IV SCH (07:24)
[2016-11-21 08:28] LABS: ADD SCAN DIFF NO
[2016-11-21 08:42] LABS: HEMATOCRIT 32.1 % (42.0-52.0); HEMOGLOBIN 11.3 g/dl (14.0-18.0); LYMPHOCYTES % 16.4 % (15.0-51.0); MEAN CORPUSCULAR HEMOGLOBIN 32.3 pg (29.0-33.0); MEAN CORPUSCULAR HGB CONC 35.2 g/dl (32.0-37.0); MEAN CORPUSCULAR VOLUME 91.7 fl (82.0-101.0); MEAN PLATELET VOLUME 9.3 fl (7.4-10.4); MONOCYTE # 0.4 10^3/ul (0.3-0.9); MONOCYTES % 6.6 % (0.0-11.0); NEUTROPHIL # 4.4 10^3/ul (1.6-7.5); NEUTROPHILS % 76.5 % (39.0-77.0); PLATELET COUNT 312 10^3/UL (140-415); RED CELL DISTRIBUTION WIDTH 11.7 % (11.5-14.5); WHITE BLOOD COUNT 5.8 10^3/ul (4.8-10.8)
[2016-11-21 08:45] LABS: ALBUMIN 3.6 g/dl (3.3-4.9); POTASSIUM 4.5 mmol/L (3.5-5.1)
[2016-11-21 08:46] LABS: INR 1.11; PROTIME 14.3 Sec (12.2-14.2); PT RATIO 1.1
[2016-11-21 08:47] LABS: CREATININE 0.87 mg/dl (0.61-1.24); PARTIAL THROMBOPLASTIN TIME 30.3 Sec (25.0-35.0)
[2016-11-21 08:48] LABS: ALBUMIN/GLOBULIN RATIO 1.16; BILIRUBIN,INDIRECT 0.2 mg/dl (0-1.1); BILIRUBIN,TOTAL 0.2 mg/dl (0.2-1.3); CALCIUM 8.8 mg/dl (8.4-10.2); TOTAL PROTEIN 6.7 g/dl (6.1-8.1)
[2016-11-21] MEDS: ALBUTEROL HFA 8 GM INHALER INH SCH (09:03)
[2016-11-21] MEDS: MOMETASONE 0.24 GM INHALER INH SCH ×2 (09:03→20:35)
[2016-11-21] MEDS: IPRATROPIUM (HFA) 12.9 GM INHALER INH SCH (09:03)
--- NOTE | 2016-11-21 11:01 | PN ---
Date/Time of Note Date/Time of Note DATE: 11/21/16 TIME: 10:58 Assessment/Plan VTE Prophylaxis VTE Prophylaxis Intervention: SCD's Lines/Catheters IV Catheter Type (from Nrs): Peripheral IV Urinary Cath still in place: Yes Reason Cath still needed: urinary retention Assessment/Plan Assessment/Plan 1. Distal small bowel obstruction.- improving 2. Severey Hyponatremia with Na 120- now improved to 123 but still very low despite gettnig IVF 3. Hyponatremia, per outside hospital results. 4. History of chronic obstructive pulmonary disease. 5. History of gastroesophageal reflux disease. 6. History of hypertension. 7. History of anxiety and depression. 8. History of diabetes 9. acute urinary retention required schuster catheter, s/p Urology consult and follow up Plan: NG tube discontinued, pt had a two BM,. S/p General surgery follow up - no plan for sugical intervention on clear liquids diet today Na still low, will switch his IVF to 1/2 NS ambulate Advancement of diet as per GI/surgery Subjective 24 Hr Interval Summary Free Text/Dictation pt doing better, pain controlled, on clear liquid diet, had two BM, Na still low Exam/Review of Systems Vital Signs Vitals Vital Signs Date Time Temp Pulse Resp B/P Pulse Ox O2 Delivery O2 Flow Rate FiO2 11/21/16 08:05 78 11/21/16 07:44 98.2 19 141/70 95 11/19/16 05:00 Room Air Intake and Output 11/20/16 11/20/16 11/21/16 15:00 23:00 07:00 Intake Total 1620 ml 1400 ml Output Total 1200 ml 2100 ml Balance 420 ml -700 ml Exam GENERALuncomfortable due to abdominal pain HEENT: No obvious head deformity. Pupils are reactive to light. Extraocular muscles intact. CARDIOVASCULAR: Slightly tachycardic with regular rhythm. LUNGS: Clear. ABDOMEN:less, tender to palpation. good BS EXTREMITIES: No edema. NEUROLOGIC: No focal deficits Results Result Diagram: 11/21/16 0711/21/16704 Results 24 hrs Laboratory Tests Test 11/20/16 15:25 11/21/16 07:05 White Blood Count 5.6 # 5.8 Red Blood Count 3.94 L 3.50 L Hemoglobin 12.7 L 11.3 L Hematocrit 36.4 L 32.1 L Mean Corpuscular Volume 92.4 91.7 Mean Corpuscular Hemoglobin 32.2 32.3 Mean Corpuscular Hemoglobin Concent 34.9 35.2 Red Cell Distribution Width 12.1 11.7 Platelet Count 335 312 Mean Platelet Volume 9.2 9.3 Neutrophils % 70.3 76.5 Lymphocytes % 22.9 16.4 Monocytes % 6.4 6.6 Eosinophils % 0.0 0.0 Basophils % 0.0 0.0 Nucleated Red Blood Cells % 0.0 0.0 Neutrophils # 4.0 4.4 Lymphocytes # 1.3 1.0 Monocytes # 0.4 0.4 Eosinophils # 0.0 0.0 Basophils # 0.0 0.0 Nucleated Red Blood Cells # 0.0 0.0 Sodium Level 124 L 123 L Potassium Level 5.2 H 4.5 Chloride Level 91 L 96 L Carbon Dioxide Level 20 L 19 L Anion Gap 18 H 13 Blood Urea Nitrogen 19 16 Creatinine 0.97 0.87 Glucose Level 123 140 Calcium Level 9.2 8.8 Prothrombin Time 14.3 H Prothrombin Time Ratio 1.1 INR International Normalized Ratio 1.11 Activated Partial Thromboplast Time 30.3 Total Bilirubin 0.2 Direct Bilirubin 0.00 Indirect Bilirubin 0.2 Aspartate Amino Transf (AST/SGOT) 16 Alanine Aminotransferase (ALT/SGPT) 26 Alkaline Phosphatase 92 Total Protein 6.7 Albumin 3.6 Globulin 3.10 Albumin/Globulin Ratio 1.16 Medications Medications Current Medications Morphine Sulfate (morphine) 4 mg Q4H PRN IV PAIN Last administered on 11/19/16 18:16; Admin Dose 4 MG; Start 11/18/16 at 21:00 Ketorolac Tromethamine (Toradol) 30 mg Q6H PRN IV PAIN Last administered on 11/18 22:16; Admin Dose 30 MG; Start 11/18/16 at 22:30; Stop 11/21/16 at 22:29 Ondansetron HCl (Zofran Inj) 4 mg Q6H PRN IV NAUSEA AND/OR VOMITING; Start 11/18 at 22:30 Albuterol (Ventolin Hfa) 2 puff DAILY INH Last administered on 11/21/16 09:03; Admin Dose 2 PUFF; Start 11/19/16 at 09:00 Ipratropium [place] (Atrovent Hfa) 2 puff DAILY INH Last administered on 09:03; Admin Dose 2 PUFF; Start 11/19/16 at 09:00 Mometasone Furoate (Asmanex) 1 puff BID INH Last administered on 11/21/16 09:03 ; Admin Dose 1 PUFF; Start 11/19/16 at 09:00 Pantoprazole (Protonix Iv) 40 mg DAILY@06 IV Last administered on 11/21/16 06: 18; Admin Dose 40 MG; Start 11/20/16 at 06:00 Ondansetron HCl (Zofran Inj) 4 mg Q4H PRN IV NAUSEA AND/OR VOMITING; Start 11/19 at 12:30 Lorazepam 1 mg 1 mg Q4H PRN IV severe agitation/Restlessness Last administered on 11/21/16 00:09; Admin Dose 1 MG; Start 11/19/16 at 12:30 Levofloxacin/ Dextrose 100 ml @ 100 mls/hr Q24H IVPB Last administered on 22:57; Admin Dose 100 MLS/HR; Start 11/19/16 at 23:00 Metronidazole (Flagyl 500 Mg (Pmx)) 100 ml @ 100 mls/hr Q8 IVPB Last administered on 11/21/16 06:18; Admin Dose 100 MLS/HR; Start 11/19/16 at 22:00 Methylprednisolone Sodium Succinate 40 mg 40 mg Q8 IV Last administered on 06:17; Admin Dose 40 MG; Start 11/19/16 at 22:00 Sodium Chloride (NS) 1,000 ml @ 70 mls/hr [id number] IV Last administered on 17:40; Admin Dose 70 MLS/HR; Start 11/20/16 at 17:06 ZAC DOLAN MD Nov 21, 2016 11:01
[2016-11-21] MEDS: SOD CHLORIDE 0.45% 1,000 ML IV SCH (11:42)
[2016-11-21] MEDS ORDERED: POTASSIUM CHLORIDE 30 MEQ in DEXTROSE 5% 1,000 ML IV PRN (13:00)
--- NOTE | 2016-11-21 13:32 | PN ---
DATE: 11/21/2016 SUBJECTIVE: Urinary retention and patient does have a small bowel obstruction that appears to be orellana bsiding. In fact, the patient is very happy today that he just had his lunch and he is able to eat, and he had bowel movements. OBJECTIVE VITAL SIGNS: His temperature is 98.8, blood pressure 139/70, pulse is 88, respirations 20. ABDOMEN: Soft and the Ward catheter that he has is draining clear urine. The patient states that he did not have any problem urinating prior to his recent bowel obstruction. LABORATORY DATA: The urine culture showed no growth after 48 hours. The CBC shows a white count of 5.8, hemoglobin 11.3, hematocrit 32.1. BUN is 16, creatinine 0.87, sodium 123, potassium 4.5, chlo ride 96, CO2 19. IMPRESSION: Urinary retention and bowel obstruction that is improving. PLAN: To discontinue the Ward catheter tomorrow morning and then start him on Flomax tonight and monitor his voiding and his postvoid residual with a bladder scan and do straight catheterization ev keri postvoid residual over 300 or if he does not void and the bladder volume is over 500. Dictated By: PARAG TURNER/NUZHAT Conf#: [id number] DID#: [id number]
[2016-11-21] MEDS ORDERED: PEG/ELECTROLYTES 4L BTL PO ONE (14:30)
--- NOTE | 2016-11-21 19:04 | PN ---
Date/Time of Note Date/Time of Note DATE: 11/21/16 TIME: 19:00 Assessment/Plan VTE Prophylaxis VTE Prophylaxis Intervention: other (per pmd) Lines/Catheters IV Catheter Type (from Nrsg): Peripheral IV Urinary Cath still in place: Yes Reason Cath still needed: other (indicate) (per pmd) Assessment/Plan Assessment/Plan ressolving sbo sec prob ileitis infection neoplasm plan colonoscoopy am Subjective 24 Hr Interval Summary Free Text/Dictation no emesis having bms sec to golytely Exam/Review of Systems Vital Signs Vitals Vital Signs Date Time Temp Pulse Resp B/P Pulse Ox O2 Delivery O2 Flow Rate FiO2 11/21/16 16:08 83 11/21/16 15:56 98.2 20 139/74 95 11/19/16 05:00 Room Air Intake and Output 11/20/16 11/20/16 11/21/16 15:00 23:00 07:00 Intake Total 1620 ml 1400 ml Output Total 1200 ml 2100 ml Balance 420 ml -700 ml Exam abd soft no distension tolerating cl liquids and golytely having bms Results Result Diagram: 11/21/16 0705 11/21/16 0705 Results 24 hrs Laboratory Tests Test 11/21/16 07:05 White Blood Count 5.8 Red Blood Count 3.50 L Hemoglobin 11.3 L Hematocrit 32.1 L Mean Corpuscular Volume 91.7 Mean Corpuscular Hemoglobin 32.3 Mean Corpuscular Hemoglobin Concent 35.2 Red Cell Distribution Width 11.7 Platelet Count 312 Mean Platelet Volume 9.3 Neutrophils % 76.5 Lymphocytes % 16.4 Monocytes % 6.6 Eosinophils % 0.0 Basophils % 0.0 Nucleated Red Blood Cells % 0.0 Neutrophils # 4.4 Lymphocytes # 1.0 Monocytes # 0.4 Eosinophils # 0.0 Basophils # 0.0 Nucleated Red Blood Cells # 0.0 Prothrombin Time 14.3 H Prothrombin Time Ratio 1.1 INR International Normalized Ratio 1.11 Activated Partial Thromboplast Time 30.3 Sodium Level 123 L Potassium Level 4.5 Chloride Level 96 L Carbon Dioxide Level 19 L Anion Gap 13 Blood Urea Nitrogen 16 Creatinine 0.87 Glucose Level 140 Calcium Level 8.8 Total Bilirubin 0.2 Direct Bilirubin 0.00 Indirect Bilirubin 0.2 Aspartate Amino Transf (AST/SGOT) 16 Alanine Aminotransferase (ALT/SGPT) 26 Alkaline Phosphatase 92 Total Protein 6.7 Albumin 3.6 Globulin 3.10 Albumin/Globulin Ratio 1.16 Medications Medications Current Medications Morphine Sulfate (morphine) 4 mg Q4H PRN IV PAIN Last administered on 11/19/16 18:16; Admin Dose 4 MG; Start 11/18/16 at 21:00 Ketorolac Tromethamine (Toradol) 30 mg Q6H PRN IV PAIN Last administered on 11/18 22:16; Admin Dose 30 MG; Start 11/18/16 at 22:30; Stop 11/21/16 at 22:29 Ondansetron HCl (Zofran Inj) 4 mg Q6H PRN IV NAUSEA AND/OR VOMITING; Start 11/18 at 22:30 Albuterol (Ventolin Hfa) 2 puff DAILY INH Last administered on 11/21/16 09:03; Admin Dose 2 PUFF; Start 11/19/16 at 09:00 Ipratropium [place] (Atrovent Hfa) 2 puff DAILY INH Last administered on 09:03; Admin Dose 2 PUFF; Start 11/19/16 at 09:00 Mometasone Furoate (Asmanex) 1 puff BID INH Last administered on 11/21/16 09:03 ; Admin Dose 1 PUFF; Start 11/19/16 at 09:00 Pantoprazole (Protonix Iv) 40 mg DAILY@06 IV Last administered on 11/21/16 06: 18; Admin Dose 40 MG; Start 11/20/16 at 06:00 Ondansetron HCl (Zofran Inj) 4 mg Q4H PRN IV NAUSEA AND/OR VOMITING; Start 11/19 at 12:30 Lorazepam 1 mg 1 mg Q4H PRN IV severe agitation/Restlessness Last administered on 11/21/16 11:42; Admin Dose 1 MG; Start 11/19/16 at 12:30 Levofloxacin/ Dextrose 100 ml @ 100 mls/hr Q24H IVPB Last administered on 22:57; Admin Dose 100 MLS/HR; Start 11/19/16 at 23:00 Metronidazole (Flagyl 500 Mg (Pmx)) 100 ml @ 100 mls/hr Q8 IVPB Last administered on 11/21/16 13:59; Admin Dose 100 MLS/HR; Start 11/19/16 at 22:00 Methylprednisolone Sodium Succinate 40 mg 40 mg Q8 IV Last administered on 13:59; Admin Dose 40 MG; Start 11/19/16 at 22:00 Sodium Chloride (1/2 NS) 1,000 ml @ 75 mls/hr [id number] IV Last administered on 11/21/16 11:42; Admin Dose 75 MLS/HR; Start 11/21/16 at 11:00 Tamsulosin HCl 0.4 mg 0.4 mg HS PO ; Start 11/21/16 at 21:00 Potassium Chloride/Dextrose (KCl/D5W) 1,015 ml @ 20 mls/hr Q24H PRN IV PENDING LAB VALUE; Start 11/21/16 at 13:00 HARRIS DWYER MD Nov 21, 2016 19:04
[2016-11-21] MEDS: TAMSULOSIN (SR) 0.4 MG CAP PO SCH (20:37)
[2016-11-21] MEDS: LEVOFLOXACIN 500MG/D5W (PMX) 100 ML IVPB SCH (23:34)
[2016-11-22] VITALS (20 sets, daily range): BP systolic 114–172; BP diastolic 68–96; PULSE 60–83; RESP 17–24
[2016-11-22] MEDS: SOD CHLORIDE 0.45% 1,000 ML IV SCH ×3 (00:20→21:08)
[2016-11-22] MEDS: LORAZEPAM 2 MG INJ IV PRN ×4 (02:54→20:43)
[2016-11-22] MEDS: METHYLPREDNISOLONE 40 MG INJ IV SCH ×3 (05:35→21:05)
[2016-11-22] MEDS: PANTOPRAZOLE 40 MG INJ IV SCH (05:35)
[2016-11-22] MEDS: metroNIDAZOLE 500 MG/NS (PMX) 100 ML IVPB SCH ×3 (05:35→21:00)
[2016-11-22] MEDS ORDERED: PROPOFOL 200 MG INJ ONE (07:00)
[2016-11-22 07:23] LABS: ADD SCAN DIFF NO
[2016-11-22 07:32] LABS: HEMATOCRIT 32.2 % (42.0-52.0); HEMOGLOBIN 11.3 g/dl (14.0-18.0); LYMPHOCYTES # 1.1 10^3/ul (0.8-2.9); LYMPHOCYTES % 18.3 % (15.0-51.0); MEAN CORPUSCULAR HEMOGLOBIN 32.2 pg (29.0-33.0); MEAN CORPUSCULAR HGB CONC 35.1 g/dl (32.0-37.0); MEAN CORPUSCULAR VOLUME 91.7 fl (82.0-101.0); MEAN PLATELET VOLUME 9.2 fl (7.4-10.4); MONOCYTE # 0.3 10^3/ul (0.3-0.9); MONOCYTES % 5.4 % (0.0-11.0); NEUTROPHIL # 4.3 10^3/ul (1.6-7.5); NEUTROPHILS % 75.3 % (39.0-77.0); PLATELET COUNT 307 10^3/UL (140-415); RED BLOOD COUNT 3.51 10^6/ul (4.70-6.10); RED CELL DISTRIBUTION WIDTH 11.7 % (11.5-14.5); WHITE BLOOD COUNT 5.8 10^3/ul (4.8-10.8)
[2016-11-22 07:55] LABS: POTASSIUM 4.5 mmol/L (3.5-5.1)
[2016-11-22 07:57] LABS: CREATININE 0.91 mg/dl (0.61-1.24)
[2016-11-22 07:58] LABS: CALCIUM 8.9 mg/dl (8.4-10.2)
[2016-11-22] MEDS: IPRATROPIUM (HFA) 12.9 GM INHALER INH SCH (08:54)
[2016-11-22] MEDS: ALBUTEROL HFA 8 GM INHALER INH SCH (08:54)
[2016-11-22] MEDS: MOMETASONE 0.24 GM INHALER INH SCH ×2 (08:55→20:44)
--- NOTE | 2016-11-22 12:49 | PN ---
Date/Time of Note Date/Time of Note DATE: 11/22/16 TIME: 12:48 Assessment/Plan VTE Prophylaxis VTE Prophylaxis Intervention: SCD's Lines/Catheters IV Catheter Type (from Nrs): Peripheral IV Urinary Cath still in place: No Assessment/Plan Assessment/Plan 1. Distal small bowel obstruction.- improving 2. Severey Hyponatremia with Na 120- now improved to 123 but still very low despite gettnig IVF 3. Hyponatremia, per outside hospital results. 4. History of chronic obstructive pulmonary disease. 5. History of gastroesophageal reflux disease. 6. History of hypertension. 7. History of anxiety and depression. 8. History of diabetes 9. acute urinary retention required schuster catheter, s/p Urology consult and follow up Plan: NG tube discontinued, pt had a two BM,. S/p General surgery follow up - no plan for sugical intervention, plan for colonoscopy today by GI Na 128-on 08/20 NS downgrade to med/surge floor on clear liquid diet, advancement of diet as per GI surgery signed off Subjective 24 Hr Interval Summary Free Text/Dictation Na improved to128, plan for colonoscopy today Exam/Review of Systems Vital Signs Vitals Vital Signs Date Time Temp Pulse Resp B/P Pulse Ox O2 Delivery O2 Flow Rate FiO2 11/22/16 12:26 97.3 74 24 114/74 93 Room Air Intake and Output 11/21/16 11/21/16 11/22/16 15:00 23:00 07:00 Intake Total 1650 ml 2675 ml Output Total 1800 ml 800 ml Balance -150 ml 1875 ml Exam GENERALuncomfortable due to abdominal pain HEENT: No obvious head deformity. Pupils are reactive to light. Extraocular muscles intact. CARDIOVASCULAR: Slightly tachycardic with regular rhythm. LUNGS: Clear. ABDOMEN:less, tender to palpation. good BS EXTREMITIES: No edema. NEUROLOGIC: No focal deficits Results Result Diagram: 11/22/16 0641 11/22/16 0641 Results 24 hrs Laboratory Tests Test 11/22/16 06:41 White Blood Count 5.8 Red Blood Count 3.51 L Hemoglobin 11.3 L Hematocrit 32.2 L Mean Corpuscular Volume 91.7 Mean Corpuscular Hemoglobin 32.2 Mean Corpuscular Hemoglobin Concent 35.1 Red Cell Distribution Width 11.7 Platelet Count 307 Mean Platelet Volume 9.2 Neutrophils % 75.3 Lymphocytes % 18.3 Monocytes % 5.4 Eosinophils % 0.0 Basophils % 0.0 Nucleated Red Blood Cells % 0.0 Neutrophils # 4.3 Lymphocytes # 1.1 Monocytes # 0.3 Eosinophils # 0.0 Basophils # 0.0 Nucleated Red Blood Cells # 0.0 Sodium Level 128 L Potassium Level 4.5 Chloride Level 91 L Carbon Dioxide Level 25 Anion Gap 17 H Blood Urea Nitrogen 17 Creatinine 0.91 Glucose Level 141 Calcium Level 8.9 Medications Medications Current Medications Morphine Sulfate (morphine) 4 mg Q4H PRN IV PAIN Last administered on 11/19/16 18:16; Admin Dose 4 MG; Start 11/18/16 at 21:00 Ondansetron HCl (Zofran Inj) 4 mg Q6H PRN IV NAUSEA AND/OR VOMITING; Start 11/18 at 22:30 Albuterol (Ventolin Hfa) 2 puff DAILY INH Last administered on 11/22/16 08:54; Admin Dose 2 PUFF; Start 11/19/16 at 09:00 Ipratropium [place] (Atrovent Hfa) 2 puff DAILY INH Last administered on 08:54; Admin Dose 2 PUFF; Start 11/19/16 at 09:00 Mometasone Furoate (Asmanex) 1 puff BID INH Last administered on 11/22/16 08:55 ; Admin Dose 1 PUFF; Start 11/19/16 at 09:00 Pantoprazole (Protonix Iv) 40 mg DAILY@06 IV Last administered on 11/22/16 05: 35; Admin Dose 40 MG; Start 11/20/16 at 06:00 Ondansetron HCl (Zofran Inj) 4 mg Q4H PRN IV NAUSEA AND/OR VOMITING; Start 11/19 at 12:30 Lorazepam 1 mg 1 mg Q4H PRN IV severe agitation/Restlessness Last administered on 11/22/16 09:12; Admin Dose 1 MG; Start 11/19/16 at 12:30 Levofloxacin/ Dextrose 100 ml @ 100 mls/hr Q24H IVPB Last administered on 23:34; Admin Dose 100 MLS/HR; Start 11/19/16 at 23:00 Metronidazole (Flagyl 500 Mg (Pmx)) 100 ml @ 100 mls/hr Q8 IVPB Last administered on 11/22/16 05:35; Admin Dose 100 MLS/HR; Start 11/19/16 at 22:00 Methylprednisolone Sodium Succinate 40 mg 40 mg Q8 IV Last administered on 05:35; Admin Dose 40 MG; Start 11/19/16 at 22:00 Sodium Chloride (1/2 NS) 1,000 ml @ 75 mls/hr [id number] IV Last administered on 11/22/16 05:40; Admin Dose 75 MLS/HR; Start 11/21/16 at 11:00 Tamsulosin HCl 0.4 mg 0.4 mg HS PO Last administered on 11/21/16 20:37; Admin Dose 0.4 MG; Start 11/21/16 at 21:00 Potassium Chloride/Dextrose (KCl/D5W) 1,015 ml @ 20 mls/hr Q24H PRN IV PENDING LAB VALUE; Start 11/21/16 at 13:00 ZAC DOLAN MD Nov 22, 2016 12:49
[2016-11-22] MEDS ORDERED: MIDAZOLAM 1 MG/ML 2 ML INJ ONE (13:01)
[2016-11-22] MEDS ORDERED: FENTAnyl 50 MCG/ML VIAL ONE (13:01)
--- NOTE | 2016-11-22 14:27 | GILP ---
DATE OF PROCEDURE: NAME OF PROCEDURE: Colonoscopy up to cecum and terminal ileum. PREOPERATIVE DIAGNOSIS: Patient presenting with a small-bowel obstruction. CAT scan of the abdomen shows evidence of thickening of the terminal ileum, rule out infectious process, rule out malignanc y, Crohn's disease. POSTOPERATIVE DIAGNOSES: 1. Normal colon, normal appearing terminal ileum for about 20 cm from the ileocecal valve. Biopsie s were done to rule out ileitis. . Minimal external hemorrhoids. DESCRIPTION OF PROCEDURE: After informed written consent was obtained, the patient was asked to lie on the left lateral side. Intravenous anesthesia was given by anesthesiologist, Dr. Dewitt. Whe n the patient became somnolent, the Olympus video colonoscope was introduced into the rectum and sco pe was advanced all the way to the cecum. The entire colon appeared normal. Scope was advanced for about 20 cm into the terminal ileum from the ileocecal valve. Mucosa appeared normal. Multiple bi opsies were obtained and the scope at this time was withdrawn after taking the biopsies and random c olon biopsies were done and on the way out, minimal external hemorrhoids were noted and the procedur e was terminated. PLAN: Recommend wait for the pathology report. Dictated By: HARRIS ARIAS/NUZHAT Conf#: [id number] DID#: [id number] CC: ALEJANDRO DONALDSON MD;*EndCC*
--- NOTE | 2016-11-22 19:32 | PN ---
DATE: 11/22/2016 SUBJECTIVE: Urinary retention. The patient had an indwelling Ward catheter that was removed this morning. The patient states that he has voided multiple times and that he has no difficulty with ur ination. There is no burning or stinging, and the urine is clear. The patient also underwent a col onoscopy today. OBJECTIVE: VITAL SIGNS: Temperature is 98.0, pulse 62, respiration 18, blood pressure 140/69. ABDOMEN: Soft. GENITOURINARY: The external genitalia are normal. The patient just voided and his bladder is empty at least by physical examination. The nurse will be doing the bladder scan to check his postvoid r esidual. Unfortunately they did not check that earlier as ordered. LABORATORY DATA: His CBC today shows a white count of 5.8, hemoglobin 11.3, hematocrit 32.2. The B UN is 17, creatinine is 0.91, sodium 128, potassium 4.5, chloride 91, CO2 of 25. Urine culture: No growth after 48 hours. IMPRESSION: Urinary retention that has resolved. The patient is voiding well and he is comfortable with his voiding. PLAN: To continue present treatment and check the postvoid residuals after he voids. Dictated By: PARAG TURNER/NUZHAT Conf#: [id number] DID#: [id number]
[2016-11-22] MEDS: TAMSULOSIN (SR) 0.4 MG CAP PO SCH (20:43)
[2016-11-22] MEDS: LEVOFLOXACIN 500MG/D5W (PMX) 100 ML IVPB SCH (22:43)
[2016-11-23] MEDS: LORAZEPAM 2 MG INJ IV PRN ×4 (01:47→21:37)
[2016-11-23] MEDS: metroNIDAZOLE 500 MG/NS (PMX) 100 ML IVPB SCH ×3 (05:54→21:28)
[2016-11-23] MEDS: PANTOPRAZOLE 40 MG INJ IV SCH (05:55)
[2016-11-23] MEDS: METHYLPREDNISOLONE 40 MG INJ IV SCH ×3 (05:55→21:28)
[2016-11-23 06:32] LABS: POTASSIUM 4.1 mmol/L (3.5-5.1)
[2016-11-23 06:34] LABS: CREATININE 0.79 mg/dl (0.61-1.24)
[2016-11-23 06:35] LABS: CALCIUM 8.7 mg/dl (8.4-10.2)
[2016-11-23 08:08] VITALS: BP 168/82; RESP 18
[2016-11-23] MEDS: IPRATROPIUM (HFA) 12.9 GM INHALER INH SCH (09:47)
[2016-11-23] MEDS: MOMETASONE 0.24 GM INHALER INH SCH ×2 (09:47→21:28)
[2016-11-23] MEDS: ALBUTEROL HFA 8 GM INHALER INH SCH (09:48)
--- NOTE | 2016-11-23 12:11 | PN ---
Date/Time of Note Date/Time of Note DATE: 11/23/16 TIME: 12:05 Assessment/Plan VTE Prophylaxis VTE Prophylaxis Intervention: SCD's Lines/Catheters IV C[facility]ter Type (from [facility]): Peripheral IV Urinary Cath still in place: No Assessment/Plan Assessment/Plan 1. Distal small bowel obstruction.- resolved s/p colonoscopy that showed 2. Severey Hyponatremia with Na 120- Na improved to 128 then down to 125 today 3. Hyponatremia, per outside hospital results. 4. History of chronic obstructive pulmonary disease. 5. History of gastroesophageal reflux disease. 6. History of hypertension. 7. History of anxiety and depression. 8. History of diabetes 9. acute urinary retention required schuster catheter, s/p Urology consult and follow up Plan: Na improved to 128 then down to 125 today - change IVF to NS to day s/p colonoscopy that showed which showed Normal colon, normal appearing terminal ileum for about 20 cm from the ileocecal valve. Biopsies were done to rule out ileitis., Minimal external hemorrhoids. surgery signed off Subjective 24 Hr Interval Summary Free Text/Dictation s/p colonoscopy which showed Normal colon, normal appearing terminal ileum for about 20 cm from the ileocecal valve. Biopsies were done to rule out ileitis. . Minimal external hemorrhoids. Na down to 125 Exam/Review of Systems Vital Signs Vitals Vital Signs Date Time Temp Pulse Resp B/P Pulse Ox O2 Delivery O2 Flow Rate FiO2 11/23/16 08:08 97.8 82 18 168/82 95 11/22/16 21:00 Room Air Intake and Output 11/22/16 11/22/16 11/23/16 15:00 23:00 07:00 Intake Total 2090 ml 1100 ml Balance 2090 ml 1100 ml Exam GENERALuncomfortable due to abdominal pain HEENT: No obvious head deformity. Pupils are reactive to light. Extraocular muscles intact. CARDIOVASCULAR: Slightly tachycardic with regular rhythm. LUNGS: Clear. ABDOMEN:less, tender to palpation. good BS EXTREMITIES: No edema. NEUROLOGIC: No focal deficits Results Result Diagram: 11/22/16 0641 11/23/16 0500 Results 24 hrs Laboratory Tests Test 11/23/16 05:00 Sodium Level 125 L Potassium Level 4.1 Chloride Level 92 L Carbon Dioxide Level 23 Anion Gap 14 Blood Urea Nitrogen 17 Creatinine 0.79 Glucose Level 130 Calcium Level 8.7 Medications Medications Current Medications Morphine Sulfate (morphine) 4 mg Q4H PRN IV PAIN Last administered on 11/19/16 18:16; Admin Dose 4 MG; Start 11/18/16 at 21:00 Albuterol (Ventolin Hfa) 2 puff DAILY INH Last administered on 11/23/16 09:48; Admin Dose 2 PUFF; Start 11/19/16 at 09:00 Ipratropium [place] (Atrovent Hfa) 2 puff DAILY INH Last administered on 09:47; Admin Dose 2 PUFF; Start 11/19/16 at 09:00 Mometasone Furoate (Asmanex) 1 puff BID INH Last administered on 11/23/16 09:47 ; Admin Dose 1 PUFF; Start 11/19/16 at 09:00 Pantoprazole (Protonix Iv) 40 mg DAILY@06 IV Last administered on 11/23/16 05: 55; Admin Dose 40 MG; Start 11/20/16 at 06:00 Ondansetron HCl (Zofran Inj) 4 mg Q4H PRN IV NAUSEA AND/OR VOMITING; Start 11/19 at 12:30 Lorazepam 1 mg 1 mg Q4H PRN IV severe agitation/Restlessness Last administered on 11/23/16 06:03; Admin Dose 1 MG; Start 11/19/16 at 12:30 Levofloxacin/ Dextrose 100 ml @ 100 mls/hr Q24H IVPB Last administered on 22:43; Admin Dose 100 MLS/HR; Start 11/19/16 at 23:00 Metronidazole (Flagyl 500 Mg (Pmx)) 100 ml @ 100 mls/hr Q8 IVPB Last administered on 11/23/16 05:54; Admin Dose 100 MLS/HR; Start 11/19/16 at 22:00 Methylprednisolone Sodium Succinate 40 mg 40 mg Q8 IV Last administered on 05:55; Admin Dose 40 MG; Start 11/19/16 at 22:00 Sodium Chloride (1/2 NS) 1,000 ml @ 75 mls/hr [id number] IV Last administered on 11/22/16 21:08; Admin Dose 75 MLS/HR; Start 11/21/16 at 11:00 Tamsulosin HCl (Flomax) 0.4 mg HS PO Last administered on 11/22/16t 20:43; Admin Dose 0.4 MG; Start 11/21/16 at 21:00 ZAC DOLAN MD Nov 23, 2016 12:11
[2016-11-23] MEDS: SOD CHLORIDE 0.9% 1,000 ML IV SCH ×2 (12:30→17:25)
[2016-11-23] MEDS ORDERED: LIDOCAINE 1% (MDV) 20 ML INJ SC ONE (12:30)
[2016-11-23] MEDS: CITALOPRAM 20 MG TAB PO SCH (13:50)
--- NOTE | 2016-11-23 15:38 | RADRPT ---
Vent Rate: 80 bpm RR Interval: 0 msec HI Interval: 126 msec QRS Duration: 100 msec QT Interval: 382 msec QTC Interval: 440 msec P-R-T Dawes: 69 - 58 - 61 degrees Normal sinus rhythm Normal ECG Electronically Signed By: Jimy Altamirano [id number]
--- NOTE | 2016-11-23 16:50 | RADRPT ---
PROCEDURE: XR Chest. CLINICAL INDICATION: Check PICC line position. TECHNIQUE: Single frontal view. COMPARISON: 11/20/2016. FINDINGS: There is a right arm PICC line with the tip in the lower superior vena cava. Lungs are clear. The nasogastric tube has been removed. The heart size is normal. There is no pleural effusion. There is no pneumothorax. IMPRESSION: 1. Satisfactory position of right arm PICC line. 2. Nasogastric tube removed. 3. Otherwise normal chest radiograph. RPTAT: QQ .Mando Edge MD, MD Date Time Electronically viewed and signed by .Mando Edge MD, MD on 11/23/2016 16:49 .R/
[2016-11-23] MEDS ORDERED: SOD CHLORIDE 0.9% 100 ML ONE (17:03)
--- NOTE | 2016-11-23 17:07 | RADRPT ---
PROCEDURE: Ultrasound guidance for placement of needle in right upper extremity vein. CLINICAL INDICATION: Venous access. TECHNIQUE: Limited sonography of the right upper extremity was performed. Ultrasound images were recorded and stored in the patient's medical record. COMPARISON: None. FINDINGS: The ultrasound images demonstrate a patent right upper extremity vein. The PICC line was inserted b y the PICC line nurse. IMPRESSION: 1. Ultrasound guidance for a needle placement in a right upper extremity vein. 2. The visualized right upper extremity vein is patent. RPTAT: QQ .Mando Edge MD, MD Date Time Electronically viewed and signed by .Mando Edge MD, MD on 11/23/2016 17:06 .R/
[2016-11-23 20:00] VITALS: BP 136/72; PULSE 74; RESP 18
[2016-11-23] MEDS: TAMSULOSIN (SR) 0.4 MG CAP PO SCH (21:28)
[2016-11-23] MEDS: LEVOFLOXACIN 500MG/D5W (PMX) 100 ML IVPB SCH (23:05)
[2016-11-24] MEDS: LORAZEPAM 2 MG INJ IV PRN ×4 (02:41→20:36)
--- NOTE | 2016-11-24 04:24 | PN ---
DATE: 11/23/2016 SUBJECTIVE: The patient is feeling comfortable. He denies having any pain and states that he is anx ious to go home. He is voiding well and denies any burning or stinging on urination. OBJECTIVE VITAL SIGNS: The temperature is 97.8, pulse 82, respiration 18, blood pressure 168/82. ABDOMEN: Soft. The result from the colonoscopy was negative and the biopsy was also negative. The patient is voidi ng and he states there is no dysuria and no bleeding. The urine culture is no growth after 48 hours . CBC shows a white count of 5.8, hemoglobin 11.3, hematocrit 32.2. BUN is 17, creatinine 0.78. IMPRESSION: Urinary retention that has resolved and patient is doing well. From a urological stand point, he could go home and he could continue the tamsulosin for a while and then one could stop it and see if he urinates well without it. Dictated By: PARAG TURNER/NUZHAT Conf#: [id number] DID#: [id number]
[2016-11-24] MEDS: METHYLPREDNISOLONE 40 MG INJ IV SCH (05:12)
[2016-11-24] MEDS: PANTOPRAZOLE 40 MG INJ IV SCH (05:12)
[2016-11-24] MEDS: metroNIDAZOLE 500 MG/NS (PMX) 100 ML IVPB SCH ×3 (05:12→22:00)
[2016-11-24] MEDS: SOD CHLORIDE 0.9% 1,000 ML IV SCH (06:38)
[2016-11-24 08:09] VITALS: BP 151/93; RESP 18
--- NOTE | 2016-11-24 08:43 | CONS ---
Date/Time of Note Date/Time of Note DATE: 11/24/16 TIME: 08:40 Consult Date/Type/Reason Admit Date/Time Nov 18, 2016 at 19:11 Initial Consult Date Type of Consultation: internal medicine Subjective Patient feels better today has no nausea no vomiting Tolerating by mouth diet An adequate urine output No urinary retention Morning labs pending Objective Vital Signs Date Time Temp Pulse Resp B/P Pulse Ox O2 Delivery O2 Flow Rate FiO2 11/24/16 08:09 98.4 60 18 151/93 98 11/23/16 20:00 Room Air Intake and Output 11/23/16 11/23/16 11/24/16 15:00 23:00 07:00 Intake Total 200 ml 1456 ml 2104 ml Balance 200 ml 1456 ml 2104 ml Exam GENERAL: Well-nourished well-developed gentleman comfortable at rest VITAL SIGNS: per chart NECK: Supple. No JVD or lymphadenopathy. CARDIAC EXAM: S1, S2. No added sounds or murmurs. CHEST: clear bilaterally, No added sounds, rales or wheezes ABDOMEN: Soft, nontender. No guarding or rebound. EXTREMITIES: No cyanosis, clubbing or edema. NEUROLOGIC: Generalized weakness. No focal deficits. Results/Medications Result Diagram: 11/22/16 0641 11/23/16 0500 Medications Current Medications Morphine Sulfate (morphine) 4 mg Q4H PRN IV PAIN Last administered on 11/19/16 18:16; Admin Dose 4 MG; Start 11/18/16 at 21:00 Albuterol (Ventolin Hfa) 2 puff DAILY INH Last administered on 11/23/16 09:48; Admin Dose 2 PUFF; Start 11/19/16 at 09:00 Ipratropium Shelby (Atrovent Hfa) 2 puff DAILY INH Last administered on 09:47; Admin Dose 2 PUFF; Start 11/19/16 at 09:00 Mometasone Furoate (Asmanex) 1 puff BID INH Last administered on 11/23/16 21:28 ; Admin Dose 1 PUFF; Start 11/19/16 at 09:00 Pantoprazole (Protonix Iv) 40 mg DAILY@06 IV Last administered on 11/24/16 05: 12; Admin Dose 40 MG; Start 11/20/16 at 06:00 Ondansetron HCl (Zofran Inj) 4 mg Q4H PRN IV NAUSEA AND/OR VOMITING; Start 11/19 at 12:30 Lorazepam 1 mg 1 mg Q4H PRN IV severe agitation/Restlessness Last administered on 11/24/16 02:41; Admin Dose 1 MG; Start 11/19/16 at 12:30 Levofloxacin/ Dextrose 100 ml @ 100 mls/hr Q24H IVPB Last administered on 23:05; Admin Dose 100 MLS/HR; Start 11/19/16 at 23:00 Metronidazole (Flagyl 500 Mg (Pmx)) 100 ml @ 100 mls/hr Q8 IVPB Last administered on 11/24/16 05:12; Admin Dose 100 MLS/HR; Start 11/19/16 at 22:00 Methylprednisolone Sodium Succinate (Solu-Medrol) 40 mg Q8 IV Last administered on 11/24/16 05:12; Admin Dose 40 MG; Start 11/19/16 at 22:00 Tamsulosin HCl 0.4 mg 0.4 mg HS PO Last administered on 11/23/16 21:28; Admin Dose 0.4 MG; Start 11/21/16 at 21:00 Sodium Chloride (NS) 1,000 ml @ 75 mls/hr [id number] IV Last administered on 06:38; Admin Dose 75 MLS/HR; Start 11/23/16 at 12:30 Citalopram Hydrobromide (Celexa) 40 mg DAILY PO Last administered on 11/23/16 13:50; Admin Dose 40 MG; Start 11/23/16 at 14:00 IV Flush (NS 10 ml) 10 ml PRN PRN IV IV PROTOCOL; Start 11/23/16 at 17:00 Assessment/Plan Chief Complaint/Hosp Course Assessment 1. Hyponatremia 2. Small bowel obstruction possible inflammatory bowel disease on IV steroids, normal colonoscopy 3. History of COPD 4. Urinary retention started on Flomax by urology Plan 1. Decrease steroids. DC IV fluids 2. Stat labs 3. Continue Flomax follow-up urology as outpatient Disposition Hopefully discharge soon if labs within normal limits sodium improved Problems: ANUJ VINSON MD, [facility] Nov 24, 2016 08:43
[2016-11-24] MEDS: ALBUTEROL HFA 8 GM INHALER INH SCH (09:37)
[2016-11-24] MEDS: IPRATROPIUM (HFA) 12.9 GM INHALER INH SCH (09:37)
[2016-11-24] MEDS: MOMETASONE 0.24 GM INHALER INH SCH ×2 (09:37→22:00)
[2016-11-24] MEDS: CITALOPRAM 20 MG TAB PO SCH (09:38)
[2016-11-24] MEDS: predniSONE 10 MG TAB PO SCH (09:38)
[2016-11-24 11:35] LABS: ADD SCAN DIFF NO
[2016-11-24 11:44] LABS: BASOPHILS % 0.1 % (0.0-2.0); HEMATOCRIT 33.5 % (42.0-52.0); LYMPHOCYTES % 11.6 % (15.0-51.0); MEAN CORPUSCULAR HEMOGLOBIN 32.7 pg (29.0-33.0); MEAN CORPUSCULAR HGB CONC 35.8 g/dl (32.0-37.0); MEAN CORPUSCULAR VOLUME 91.3 fl (82.0-101.0); MEAN PLATELET VOLUME 9.2 fl (7.4-10.4); MONOCYTE # 0.5 10^3/ul (0.3-0.9); MONOCYTES % 5.6 % (0.0-11.0); NEUTROPHIL # 6.9 10^3/ul (1.6-7.5); NEUTROPHILS % 79.5 % (39.0-77.0); PLATELET COUNT 285 10^3/UL (140-415); RED BLOOD COUNT 3.67 10^6/ul (4.70-6.10); RED CELL DISTRIBUTION WIDTH 11.4 % (11.5-14.5); WHITE BLOOD COUNT 8.7 10^3/ul (4.8-10.8)
[2016-11-24 11:49] LABS: POTASSIUM 4.6 mmol/L (3.5-5.1)
[2016-11-24 11:51] LABS: CREATININE 0.81 mg/dl (0.61-1.24)
[2016-11-24 11:52] LABS: CALCIUM 8.9 mg/dl (8.4-10.2)
--- NOTE | 2016-11-24 13:39 | CONS ---
DATE OF ADMISSION: 11/18/2016 DATE OF CONSULTATION: 11/24/2016 SUBJECTIVE: The patient has no specific complaints. No nausea, no vomiting, no diarrhea at this ti me OBJECTIVE: GENERAL: Patient is alert and not in distress. VITAL SIGNS: Pulse is 76, blood pressure is 122/88. CARDIOVASCULAR: Normal heart sounds. RESPIRATORY: Normal breath sounds. ABDOMEN: Shows soft abdomen. LABORATORY WORKUP: WBC count 8700, hemoglobin 12.0, potassium 4.6. Sodium is 126. CLINICAL IMPRESSION: The patient seems to have resolved small-bowel obstruction, probably due to il eitis due to gastroenteritis. Colonoscopy did not show any abnormal findings in the terminal ileum. IMPRESSION: The patient presenting with a partial small-bowel obstruction, probably due to thickeni ng of the small bowel due to gastroenteritis. Colonoscopy did not show any abnormal ileum. The patient must had resolved small-bowel obstruction due to infectious process. PLAN: Continue regular diet and present management. Dictated By: HARRIS DWYER MD NC/NTS Conf#: [id number] DID#: [id number] CC: HARRIS DWYER MD;*EndCC*
--- NOTE | 2016-11-24 15:40 | PN ---
DATE: 11/24/2016 SUBJECTIVE: Difficulty urinating earlier when he had a bowel obstruction. At present, patient state s that he is voiding well. He has no dysuria, no hematuria, and has no urinary complaints. OBJECTIVE: VITAL SIGNS: His temperature is 98.4, blood pressure 151/93, pulse 60, respirations 18. ABDOMEN: Soft. There is no abdominal mass palpable. LABORATORY: CBC shows a white count of 8.7, hemoglobin 12.0, hematocrit 33.5. The platelet count i s 285,000. BUN is 21, creatinine 0.81. Sodium 126, potassium 4.6, chloride 91, CO2 25. The urine culture showed no growth after 48 hours. IMPRESSION: Urinary retention initially, which has resolved. The patient has been taking Tamsulosin 0.4 mg daily at bedtime. RECOMMENDATION: Continue the same treatment and if he is going to go home, from a urological standp oint, he could go and continue the Flomax. Dictated By: PARAG TURNER/NUZHAT Conf#: [id number] DID#: [id number]
[2016-11-24 20:11] VITALS: BP 190/95; RESP 20
[2016-11-24 20:31] VITALS: BP 140/83; PULSE 82
[2016-11-24] MEDS: TAMSULOSIN (SR) 0.4 MG CAP PO SCH (20:35)
[2016-11-24 22:15] VITALS: BP 126/91; PULSE 96
[2016-11-24] MEDS: LEVOFLOXACIN 500MG/D5W (PMX) 100 ML IVPB SCH (23:10)
[2016-11-25] MEDS: LORAZEPAM 2 MG INJ IV PRN ×3 (01:08→20:29)
[2016-11-25 05:23] LABS: ADD SCAN DIFF NO
[2016-11-25 05:27] LABS: EOSINOPHILS % 0.2 % (0.0-7.0); HEMATOCRIT 31.8 % (42.0-52.0); HEMOGLOBIN 11.4 g/dl (14.0-18.0); LYMPHOCYTES # 2.7 10^3/ul (0.8-2.9); LYMPHOCYTES % 31.4 % (15.0-51.0); MEAN CORPUSCULAR HEMOGLOBIN 32.8 pg (29.0-33.0); MEAN CORPUSCULAR HGB CONC 35.8 g/dl (32.0-37.0); MEAN CORPUSCULAR VOLUME 91.4 fl (82.0-101.0); MEAN PLATELET VOLUME 9.3 fl (7.4-10.4); MONOCYTE # 0.7 10^3/ul (0.3-0.9); MONOCYTES % 8.6 % (0.0-11.0); NEUTROPHIL # 4.9 10^3/ul (1.6-7.5); NEUTROPHILS % 57.7 % (39.0-77.0); PLATELET COUNT 285 10^3/UL (140-415); RED BLOOD COUNT 3.48 10^6/ul (4.70-6.10); RED CELL DISTRIBUTION WIDTH 11.4 % (11.5-14.5); WHITE BLOOD COUNT 8.5 10^3/ul (4.8-10.8)
[2016-11-25] MEDS: PANTOPRAZOLE 40 MG INJ IV SCH (05:40)
[2016-11-25] MEDS: metroNIDAZOLE 500 MG/NS (PMX) 100 ML IVPB SCH ×2 (05:40→14:13)
[2016-11-25 06:03] LABS: POTASSIUM 3.3 mmol/L (3.5-5.1)
[2016-11-25 06:06] LABS: CREATININE 0.85 mg/dl (0.61-1.24)
[2016-11-25 06:07] LABS: CALCIUM 8.6 mg/dl (8.4-10.2); MAGNESIUM 1.8 mg/dl (1.7-2.5); PHOSPHORUS 2.9 mg/dl (2.5-4.9)
[2016-11-25] MEDS: ALBUTEROL HFA 8 GM INHALER INH SCH (08:02)
[2016-11-25] MEDS: predniSONE 10 MG TAB PO SCH (08:02)
[2016-11-25] MEDS: CITALOPRAM 20 MG TAB PO SCH (08:02)
[2016-11-25] MEDS: IPRATROPIUM (HFA) 12.9 GM INHALER INH SCH (08:03)
[2016-11-25] MEDS: MOMETASONE 0.24 GM INHALER INH SCH ×2 (08:03→20:29)
[2016-11-25] MEDS ORDERED: POTASSIUM CHLORIDE (SR) 20 MEQ TAB PO STA (15:07)
--- NOTE | 2016-11-25 17:00 | PN ---
DATE: 11/25/2016 SUBJECTIVE: The patient is a 61-year-old male who had a bowel obstruction with a reasonably negativ e colonoscopy and is now tolerating oral food and fluid and having bowel movements. He has been on IV antibiotics with no fevers, chills or sweats. He has been seen by urology for initial urinary re tention which is resolved and is doing adequately. He remains hyponatremic and apparently is drinki ng a lot of fluid. PHYSICAL EXAMINATION: GENERAL: Shows him to be well-developed, well-nourished, in no acute distress. VITAL SIGNS: Pulse last night was 96, respirations 20, blood pressure 121/91, temperature 97.6. HEAD AND NECK: Shows no acute inflammation. HEART: Regular, without murmurs or gallops. CHEST: Clear. ABDOMEN: Soft, nontender, without mass or organomegaly. EXTREMITIES: No clubbing, cyanosis, or edema. Periphery is warm. NEUROLOGIC: Alert and conversant. LABORATORY DATA: Hemoglobin 11.4, hematocrit 31.8, white count 8.5 thousand, platelets 285,000. So dium 129, potassium 3.3, chloride 93, bicarbonate 25, BUN 19, creatinine 0.85, glucose 173, calcium 8.6, phosphate 2.9, magnesium 1.8. ASSESSMENT AND PLAN: 1. Small-bowel obstruction, clinically resolved, tolerating orals. 2. Hyponatremia, improving. 3. Hypokalemia, new. 4. Urinary retention, resolved with treatment. 5. History of chronic obstructive pulmonary disease. PLAN: Discontinue IV antibiotics, continue to taper steroids. Continue Flomax with outpatient urol ogy followup, fluid restriction. Follow up labs tomorrow. If sodium is stable, discharge is antici pated. Dictated By: CESILIA SIMONS/NUZHAT Conf#: [id number] DID#: [id number]
[2016-11-25 19:15] VITALS: BP 143/87; RESP 16
[2016-11-25] MEDS: TAMSULOSIN (SR) 0.4 MG CAP PO SCH (20:29)
[2016-11-26] MEDS: LORAZEPAM 2 MG INJ IV PRN ×2 (03:01→09:29)
[2016-11-26 05:49] LABS: ADD SCAN DIFF NO
[2016-11-26 05:51] LABS: EOSINOPHILS % 0.3 % (0.0-7.0); HEMATOCRIT 31.8 % (42.0-52.0); HEMOGLOBIN 10.9 g/dl (14.0-18.0); LYMPHOCYTES # 2.9 10^3/ul (0.8-2.9); LYMPHOCYTES % 38.2 % (15.0-51.0); MEAN CORPUSCULAR HEMOGLOBIN 31.6 pg (29.0-33.0); MEAN CORPUSCULAR HGB CONC 34.3 g/dl (32.0-37.0); MEAN CORPUSCULAR VOLUME 92.2 fl (82.0-101.0); MEAN PLATELET VOLUME 9.1 fl (7.4-10.4); MONOCYTE # 0.7 10^3/ul (0.3-0.9); MONOCYTES % 9.3 % (0.0-11.0); NEUTROPHIL # 3.8 10^3/ul (1.6-7.5); NEUTROPHILS % 50.2 % (39.0-77.0); PLATELET COUNT 241 10^3/UL (140-415); RED BLOOD COUNT 3.45 10^6/ul (4.70-6.10); RED CELL DISTRIBUTION WIDTH 11.8 % (11.5-14.5); WHITE BLOOD COUNT 7.5 10^3/ul (4.8-10.8)
[2016-11-26] MEDS ORDERED: PANTOPRAZOLE (EC) 40 MG TAB PO SCH (06:00)
[2016-11-26 06:04] LABS: POTASSIUM 3.3 mmol/L (3.5-5.1)
[2016-11-26 06:06] LABS: CREATININE 0.79 mg/dl (0.61-1.24)
[2016-11-26 06:07] LABS: CALCIUM 8.3 mg/dl (8.4-10.2)
[2016-11-26] MEDS: ALBUTEROL HFA 8 GM INHALER INH SCH (08:05)
[2016-11-26] MEDS: MOMETASONE 0.24 GM INHALER INH SCH (08:05)
[2016-11-26] MEDS: CITALOPRAM 20 MG TAB PO SCH (08:05)
[2016-11-26] MEDS: IPRATROPIUM (HFA) 12.9 GM INHALER INH SCH (08:06)
[2016-11-26 08:13] VITALS: BP 148/88; RESP 18
[2016-11-26] MEDS ORDERED: predniSONE 20 MG TAB PO SCH (09:00)
[2016-11-26] MEDS ORDERED: POTASSIUM CHLORIDE (SR) 20 MEQ TAB PO STA (10:14)
--- NOTE | 2016-11-26 10:15 | PDOCDIS ---
Discharge Instructions CONDITION Patient Condition: Good HOME CARE INSTRUCTIONS: Diet Instructions: Regular ACTIVITY: Activity Restrictions: No Restrictions FOLLOW UP/APPOINTMENTS Appointments F/U WITH YOUR PCP IN 1-2 WEEKS ALEJANDRO DONALDSON Nov 26, 2016 10:15
--- NOTE | 2016-11-27 03:40 | DS ---
DATE OF ADMISSION: 11/18/2016 DATE OF DISCHARGE: 11/26/2016 DISCHARGE DIAGNOSES: 1. Small bowel obstruction, now resolved, tolerating diet and having bowel movements. 2. Urinary retention, resolved. 3. Hypernatremia, improved. 4. Hypokalemia, repleted. 5. Chronic obstructive pulmonary disease, stable. HOSPITAL COURSE: The patient is a 61-year-old male with history of COPD, GERD, hypertension, diabet es, anxiety, and depression as well as a history of appendectomy. The patient presented with abdomi nal pain, distention, nausea, and was diagnosed with a small bowel obstruction. The patient was see n by surgery. It was felt that the small bowel obstruction was due to infection or inflammation. C onservative management was recommended. The patient was on IV antibiotics as well as steroids. The patient was seen by GI and ultimately did have a colonoscopy that showed a normal colon, normal tone earing terminal ileum. The patient's bowel obstruction did resolve. He was passing both gas and wa s having bowel movements. The patient was tolerating p.o. diet without any nausea or vomiting. His stomach pain had resolved. The patient was felt to be stable for discharge. On the day of dischar , the patient's vitals, labs, physical exam were stable. He had no acute complaints. Questions a nswered. CONDITION ON DISCHARGE: Stable. DISPOSITION: To home. MEDICATIONS: The patient is to continue his usual home medications. No new medications were prescr ibed. FOLLOWUP: The patient is to follow up with his PCP in 1 to 2 weeks. Greater than 30 minutes was spent coordinating discharge of patient. Dictated By: ALEJANDRO DONALDSON MD BS/NTS Conf#: [id number] DID#: [id number]
== END 2016-11-26 13:30 | disposition home or self-care (01) | DRG 389 ==
LOC: MS2 19:11 → TEL 11-19 09:55 → MS2 11-22 20:06
PROVIDERS: ADMIT Internal Medicine; ATTEND Internal Medicine
PROC: 0DBB8ZX Excision of Ileum, Via Natural or Artificial Opening Endoscopic, Diagnostic (ICD-10-PCS; principal; 2016-11-22 12:30)
DX: K56.69 Other intestinal obstruction (principal); E87.1 Hypo-osmolality and hyponatremia; I10 Essential (primary) hypertension; J44.9 Chronic obstructive pulmonary disease, unspecified; E11.9 Type 2 diabetes mellitus without complications; K21.9 Gastro-esophageal reflux disease without esophagitis; R33.9 Retention of urine, unspecified; E87.6 Hypokalemia; F32.9 Major depressive disorder, single episode, unspecified; K64.4 Residual hemorrhoidal skin tags
CPT/HCPCS: 36569; 71010; 74000; 74010; 74177; 76937; 80048; 80053; 83735; 84100; 85025; 85610; 85730; 87045; 87086; 88305; 93005; C9113; J1885; J1956; J2060; J2250; J2270; J2920; J3010; J3480; J7030; J7042; J7512; Q9967

== ENCOUNTER 2016-12-10 20:09 | Inpatient (IN) | payer OTHER ==
[~2016-12-10] VITALS: Ht 177.8 cm; Wt 79.5 kg
[~2016-12-10 20:09] MED LIST changes: +BECL8.7A5 INH; +DICY10CA60 PO; +IPRA4AER INHALATION; +METH500T8 PO; +METO5TAB11 PO
[2016-12-10 20:13] VITALS: Ht 177.8 cm; Wt 79.5 kg
[2016-12-10] MEDS ORDERED: morphine 4 MG/ML VIAL IV STA (21:46)
[2016-12-10] MEDS ORDERED: ONDANSETRON 4 MG INJ IV STA (21:46)
[2016-12-10] MEDS ORDERED: SOD CHLORIDE 0.9% 1,000 ML IV STA (21:46)
[2016-12-10] MEDS ORDERED: GABA300C16 PO (21:47)
[2016-12-10 22:12] LABS: ADD SCAN DIFF NO
[2016-12-10 22:15] LABS: BASOPHILS % 0.2 % (0.0-2.0); EOSINOPHILS % 0.5 % (0.0-7.0); HEMATOCRIT 39.3 % (42.0-52.0); HEMOGLOBIN 13.6 g/dl (14.0-18.0); LYMPHOCYTES # 1.9 10^3/ul (0.8-2.9); LYMPHOCYTES % 28.7 % (15.0-51.0); MEAN CORPUSCULAR HEMOGLOBIN 31.9 pg (29.0-33.0); MEAN CORPUSCULAR HGB CONC 34.6 g/dl (32.0-37.0); MEAN PLATELET VOLUME 9.1 fl (7.4-10.4); MONOCYTE # 0.6 10^3/ul (0.3-0.9); MONOCYTES % 9.2 % (0.0-11.0); NEUTROPHILS % 60.9 % (39.0-77.0); PLATELET COUNT 316 10^3/UL (140-415); RED BLOOD COUNT 4.27 10^6/ul (4.70-6.10); RED CELL DISTRIBUTION WIDTH 12.2 % (11.5-14.5); WHITE BLOOD COUNT 6.5 10^3/ul (4.8-10.8)
[2016-12-10 22:27] LABS: INR 0.9; PROTIME 12.1 Sec (12.2-14.2); PT RATIO 0.9
[2016-12-10 22:28] LABS: PARTIAL THROMBOPLASTIN TIME 28.6 Sec (25.0-35.0)
[2016-12-10 22:36] LABS: ALBUMIN 4.3 g/dl (3.3-4.9); CHLORIDE 90 mmol/L (97-110); POTASSIUM 3.7 mmol/L (3.5-5.1); SODIUM 132 mmol/L (135-144)
[2016-12-10 22:38] LABS: ALBUMIN/GLOBULIN RATIO 1.26; AMYLASE 49 U/L (11-123); ANION GAP 17 (8-16); BILIRUBIN,INDIRECT 0.4 mg/dl (0-1.1); BILIRUBIN,TOTAL 0.4 mg/dl (0.2-1.3); CARBON DIOXIDE 29 mmol/L (21-31); CREATININE 0.96 mg/dl (0.61-1.24); TOTAL PROTEIN 7.7 g/dl (6.1-8.1)
[2016-12-10 22:39] LABS: ALANINE AMINOTRANSFERASE 28 IU/L (13-69); ALKALINE PHOSPHATASE 102 IU/L (42-121); ASPARTATE AMINO TRANSFERASE 21 IU/L (15-46); BLOOD UREA NITROGEN 15 mg/dl (7-20); CALCIUM 9.5 mg/dl (8.4-10.2); GLUCOSE 126 mg/dl (70-220)
[2016-12-10 23:00] LABS: TROPONIN-I < 0.012 ng/ml (0.00-0.12)
--- NOTE | 2016-12-10 23:22 | RADRPT ---
PROCEDURE: XR Chest. CLINICAL INDICATION: Abdominal pain. TECHNIQUE: Single frontal chest x-ray. COMPARISON: Chest radiograph 11/23/2016. FINDINGS: The cardiomediastinal silhouette is unremarkable. Aortic atherosclerotic vascular calcifications are identified. No pneumothorax, pleural effusion or consolidation is seen. No acute osseous abnormality is noted. IMPRESSION: 1. No acute cardiopulmonary abnormality. 2. Aortic atherosclerosis. RPTAT: HFN .Rita Burleson MD, MD Date Time Electronically viewed and signed by .Rita Burleson MD, on 12/10/2016 23:21 .N/
--- NOTE | 2016-12-11 01:04 | RADRPT ---
AMENDMENT: 12/11/2016 11:38:35 AM Taras Bagley Md Compared to the prior CT study from 11/19/2016, there is continued thickening of the terminal ileum to approximately 2.1 cm, although evaluation is somewhat limited by the absence of intravenous contr ast in the current study. These findings were discussed with Dr. Copeland over the phone on 12/11/2016 at 11:35 hours. PROCEDURE: CT abdomen and pelvis without intravenous contrast. CLINICAL INDICATION: Pain. TECHNIQUE: CT of the abdomen/pelvis was performed utilizing axial images with reconstructions in s agittal and coronal planes. The administered radiation dose is CTDI 11.1 mGy, DLP 693 mGy-cm. COMPARISON: 11/19/2016 FINDINGS: Visualized Chest: The visualized lung bases are clear. Abdomen: The liver, spleen, pancreas, gallbladder,and adrenal glands are unremarkable. The kidneys are without hydronephrosis. No definite urinary calculi are seen. Multiple markedly dilated loops of small bowel are again seen throughout the abdomen. The more dist al small bowel is collapsed. A transition point is seen within the posterior pelvis on the left as seen on axial image 138 of series 3. Findings are compatible with bowel obstruction. The degree of bowel distension is similar to the prior. Mesenteric edema surrounding the dilated loops is increas ed. There is no evidence of intra-abdominal adenopathy or free fluid. Pelvis: There is no evidence of pelvic adenopathy or free fluid. The prostate and bladder are unremarkable. Osseous structures: Multilevel lumbar spondylotic changes are present. There is moderate spinal can al narrowing at L2-3 and L3-4. IMPRESSION: Small bowel obstruction with a transition point in the left nandini pelvis. RPTAT: HIKT Physician Tyrel Date Time Electronically viewed and signed by Physician Tyrel on 12/11/2016 11:38 /
--- NOTE | 2016-12-11 01:32 | ERA ---
ER Documentation Chief Complaint Date/Time DATE: 12/11/16 TIME: 01:31 Chief Complaint SEVERE ABD PAIN X 2 DAYS RECENTLY DC 1O DAYS AGO FOR BOWEL TEAR HPI This is a 7-year-old male with history of small bowel obstruction comes in with abdominal pain. Denies any fevers or chills. Nausea. 3 episodes of vomiting nonbilious. No other current complaints. ROS All systems reviewed and are negative except as per history of present illness. Medications Home Meds Reported Medications Gabapentin* (Gabapentin*) 300 Mg Capsule, 600 MG PO TID, #180 CAP 12/10/16 Beclomethasone Dip* (Qvar 80*) 7.3 Gm Inha, 2 PUFF INH BID, #1 INHALER 11/19/16 Dicyclomine Hcl* (Bentyl*) 10 Mg Capsule, 20 MG PO BID, CAP 11/19/16 Metoclopramide Hcl* (Metoclopramide Hcl*) 5 Mg Tablet, 5 MG PO Q6H Y for NAUSEA AND OR VOMITING, TAB 11/19/16 Methocarbamol* (Methocarbamol*) 500 Mg Tablet, 500 MG PO Q8, TAB 11/19/16 Albuterol/Ipratropium* (Combivent Respimat*) 20-100 Mcg/Inh - 4 Gm Aer.w.adap, 2 PUFF INHALATION DAILY, #1 INHALER 11/19/16 Omeprazole* (Omeprazole*) 20 Mg Capsule.dr, 20 MG PO DAILY, #30 CAP 11/02/16 Lisinopril* (Lisinopril*) 40 Mg Tablet, 40 MG PO DAILY, #30 TAB 11/02/16 Loratadine* (Claritin*) 10 Mg Capsule, 10 MG PO DAILY, CAP 11/02/16 Citalopram Hydrobromide* (Citalopram Hydrobromide*) 40 Mg Tablet, 40 MG PO DAILY , #30 TAB 11/02/16 Aspirin* (Aspirin* Chew) 81 Mg Tab.chew, 81 MG PO DAILY, TAB.CHEW 11/02/16 Discontinued Reported Medications [2 Inhalers] No Conflict Check, INH DAILY 11/02/16 [Gabapentin] 600MG No Conflict Check, PO TID 11/02/16 Allergies Allergies: Coded Allergies: No Known Allergy (Unverified , 11/02/16) PMhx/Soc Anesthesia Reaction: No Hx Neurological Disorder: No Hx Respiratory Disorders: Yes (copd) Hx Cardiac Disorders: Yes (hypertension) Hx Psychiatric Problems: Yes (Current: Anxiety, Past: Depression) Hx Miscellaneous Medical Probl: No Hx Alcohol Use: Yes (maritini, 2 weeks ago) Hx Substance Use: Yes (Past use of Methampethamine and ETOH, current use of Marijuana) Hx Tobacco Use: No Smoking Status: Current every day smoker Physical Exam Vitals Vital Signs Date Time Temp Pulse Resp B/P Pulse Ox O2 Delivery O2 Flow Rate FiO2 12/10/16 22:05 97.8 90 18 133/94 100 Room Air 12/10/16 20:13 96.5 96 18 121/72 100 Physical Exam Const: [] Head: Atraumatic Eyes: Normal Conjunctiva ENT: Normal External Ears, Nose and Mouth. Neck: Full range of motion..~ No meningismus. Resp: Clear to auscultation bilaterally Cardio: Regular rate and rhythm, no murmurs Abd: Soft, non tender, non distended. Normal bowel sounds Skin: No petechiae or rashes Back: No midline or flank tenderness Ext: No cyanosis, or edema Neur: Awake and alert Psych: Normal Mood and Affect Result Diagram: 12/10/16220412/10/162204 Results 24 hrs Laboratory Tests Test 12/10/16 22:05 White Blood Count 6.510^3/ul Red Blood Count 4.2710^6/ul Hemoglobin 13.6g/dl Hematocrit 39.3% Mean Corpuscular Volume 92.0fl Mean Corpuscular Hemoglobin 31.9pg Mean Corpuscular Hemoglobin Concent 34.6g/dl Red Cell Distribution Width 12.2% Platelet Count 20505^3/UL Mean Platelet Volume 9.1fl Neutrophils % 60.9% Lymphocytes % 28.7% Monocytes % 9.2% Eosinophils % 0.5% Basophils % 0.2% Nucleated Red Blood Cells % 0.0/100WBC Neutrophils # 4.010^3/ul Lymphocytes # 1.910^3/ul Monocytes # 0.610^3/ul Eosinophils # 0.010^3/ul Basophils # 0.010^3/ul Nucleated Red Blood Cells # 0.010^3/ul Prothrombin Time 12.1Sec Prothrombin Time Ratio 0.9 INR International Normalized Ratio 0.90 Activated Partial Thromboplast Time 28.6Sec Sodium Level 132mmol/L Potassium Level 3.7mmol/L Chloride Level 90mmol/L Carbon Dioxide Level 29mmol/L Anion Gap 17 Blood Urea Nitrogen 15mg/dl Creatinine 0.96mg/dl Glucose Level 126mg/dl Calcium Level 9.5mg/dl Total Bilirubin 0.4mg/dl Direct Bilirubin 0.00mg/dl Indirect Bilirubin 0.4mg/dl Aspartate Amino Transf (AST/SGOT) 21IU/L Alanine Aminotransferase (ALT/SGPT) 28IU/L Alkaline Phosphatase 102IU/L Troponin I < 0.012ng/ml Total Protein 7.7g/dl Albumin 4.3g/dl Globulin 3.40g/dl Albumin/Globulin Ratio 1.26 Amylase Level 49U/L Lipase 46U/L Current Medications Medications (Trade) Dose Ordered Sig/Alexa Route PRN Reason Start Time Stop Time Status Last Admin Dose Admin Sodium Chloride (NS) 1,000 ml @ 1,000 mls/hr Q1H STAT IV 12/10/16 21:46 12/10/16 22:45 DC 12/10/16 22:20 Morphine Sulfate (morphine) 4 mg ONCE STAT IV 12/10/16 21:46 12/10/16 21:47 DC 12/10/16 22:20 Ondansetron HCl (Zofran Inj) 4 mg ONCE STAT IV 12/10/16 21:46 12/10/16 21:47 DC 12/10/16 22:20 Procedures/MDM CT abdomen shows small bowel obstruction with transition point. Medical decision-making: Patient admitted to hospitalist. Dr. Copeland of surgery consulted. Departure Diagnosis: Primary Impression: Small bowel obstruction Condition: Serious JEFFERSON PAINTER Dec 11, 2016 01:32
[2016-12-11] MEDS ORDERED: ONDANSETRON 4 MG INJ IV STA (01:47)
[2016-12-11] MEDS ORDERED: morphine 4 MG/ML VIAL IV STA (01:47)
[2016-12-11 02:05] VITALS: TEMP 98
[2016-12-11 03:53] VITALS: BP 150/79; PULSE 87; RESP 18
[2016-12-11] MEDS ORDERED: ONDANSETRON 4 MG INJ IV PRN (04:00)
[2016-12-11] MEDS ORDERED: DEXTROSE 5%-0.45% NACL 1,000 ML IV SCH (04:00)
[2016-12-11] MEDS: morphine 4 MG/ML VIAL IV PRN (04:46)
--- NOTE | 2016-12-11 06:08 | HP ---
Date/Time of Note Date/Time of Note DATE: 12/11/16 TIME: 05:59 Assessment/Plan VTE Prophylaxis VTE Prophylaxis Intervention: SCD's Lines/Catheters IV Catheter Type (from [facility]): Saline Lock Assessment/Plan Assessment/Plan IMPRESSION: 1. Small bowel obstruction. 2. Abdominal pain secondary to above. 3. Hyponatremia 4. History of chronic obstructive pulmonary disease. 5. History of gastroesophageal reflux disease. 6. History of hypertension. 7. History of anxiety and depression. 8. History of diabetes. PLAN: Will keep n.p.o. with IV fluid. We will provide pain medication and antiemetics as needed. NG tube to low intermittent suction as needed. Surgical consult placed by ER. Will hold his oral medication for now. Further workup and management per clinical course. HPI/ROS Admit Date/Time Admit Date/Time Dec 11, 2016 at 01:29 Hx of Present Illness The patient is a 61-year-old male with history of COPD, GERD, hypertension, diabetes, anxiety, and depression, appendectomy and SBO who presented with abdominal pain. He was just diacharged here from [facility] 2 weeks ago after he was transferred from outside hospital with diagnosis of small bowel obstruction. The patient was seen by surgery. It was felt that the small bowel obstruction was due to infection or inflammation. Conservative management was recommended. The patient was on IV antibiotics as well as steroids. The patient was seen by GI and ultimately did have a colonoscopy that showed a normal colon, normal appearing terminal ileum. The patient's bowel obstruction did resolve and was discharged in stable condition. Today here in ER, CT a/p showed Small bowel obstruction with a transition point in the left nandini pelvis. PMH/Family/Social Past Medical History 1. Small bowel obstruction. 2. Abdominal pain secondary to above. 3. Hyponatremia 4. History of chronic obstructive pulmonary disease. 5. History of gastroesophageal reflux disease. 6. History of hypertension. 7. History of anxiety and depression. 8. History of diabetes. . Past Surgical History Past Surgical Hx: appendectomy Social History Alcohol Use: none Smoking Status: Never smoker Drug Use: none Exam/Review of Systems Vital Signs Vitals Vital Signs Date Time Temp Pulse Resp B/P Pulse Ox O2 Delivery O2 Flow Rate FiO2 12/11/16 03:53 98.0 87 18 150/79 100 Room Air Exam Constitutional: alert, oriented Head: atraumatic, normocephalic Eyes: EOMI, PERRL Respiratory: clear to auscultation, normal air movement Cardiovascular: nl pulses, regular rate and rhythm Gastrointestinal: soft, tender Extremities: normal pulses Labs Result Diagram: 12/10/16220412/10/162204 Medications Medications Current Medications Dextrose/Sodium Chloride (D5-1/2ns) 1,000 ml @ 125 mls/hr Q8H IV Last administered on 12/11/16 04:23; Admin Dose 125 MLS/HR; Start 12/11/16 at 04:00 Morphine Sulfate (morphine) 3 mg Q4H PRN IV PAIN Last administered on 04:46; Admin Dose 3 MG; Start 12/11/16 at 04:00 Famotidine (Pepcid Iv) 20 mg Q12 IV ; Start 12/11/16 at 09:00 Hydralazine HCl (Apresoline) 10 mg Q4H PRN IV ELEVATED SYSTOLIC BP; Start 12/11 at 04:00 Ondansetron HCl (Zofran Inj) 4 mg Q6H PRN IV NAUSEA AND/OR VOMITING; Start at 04:00 Hydromorphone HCl (Dilaudid) 1 mg Q4H PRN IV PAIN; Start 12/11/16 at 06:00; Status JEFFERSON ROSSI MD Dec 11, 2016 06:08
[2016-12-11] MEDS: HYDROmorphONE 1 MG/ML SYG IV PRN ×4 (06:14→18:26)
[2016-12-11] MEDS: DEXTROSE 5%-0.9% NACL 1,000 ML IV SCH ×3 (07:05→22:30)
[2016-12-11 07:46] VITALS: BP 130/66; RESP 17
[2016-12-11 08:29] LABS: ADD SCAN DIFF NO
[2016-12-11 08:36] LABS: BASOPHILS % 0.3 % (0.0-2.0); EOSINOPHILS # 0.1 10^3/ul (0.0-0.5); EOSINOPHILS % 0.8 % (0.0-7.0); HEMOGLOBIN 13.5 g/dl (14.0-18.0); LYMPHOCYTES # 2.7 10^3/ul (0.8-2.9); LYMPHOCYTES % 41.3 % (15.0-51.0); MEAN CORPUSCULAR HEMOGLOBIN 31.8 pg (29.0-33.0); MEAN CORPUSCULAR HGB CONC 33.8 g/dl (32.0-37.0); MEAN CORPUSCULAR VOLUME 94.3 fl (82.0-101.0); MEAN PLATELET VOLUME 9.8 fl (7.4-10.4); MONOCYTE # 0.6 10^3/ul (0.3-0.9); NEUTROPHIL # 3.2 10^3/ul (1.6-7.5); NEUTROPHILS % 48.4 % (39.0-77.0); PLATELET COUNT 245 10^3/UL (140-415); RED BLOOD COUNT 4.24 10^6/ul (4.70-6.10); RED CELL DISTRIBUTION WIDTH 12.6 % (11.5-14.5); WHITE BLOOD COUNT 6.5 10^3/ul (4.8-10.8)
[2016-12-11] MEDS: FAMOTIDINE 20 MG INJ IV SCH ×2 (08:48→21:30)
[2016-12-11 09:33] LABS: ALBUMIN 3.9 g/dl (3.3-4.9); ALBUMIN/GLOBULIN RATIO 1.18; BILIRUBIN,INDIRECT 0.3 mg/dl (0-1.1); BILIRUBIN,TOTAL 0.3 mg/dl (0.2-1.3); CALCIUM 9.2 mg/dl (8.4-10.2); CREATININE 0.91 mg/dl (0.61-1.24); MAGNESIUM 2.6 mg/dl (1.7-2.5); PHOSPHORUS 3.9 mg/dl (2.5-4.9); POTASSIUM 3.8 mmol/L (3.5-5.1); TOTAL PROTEIN 7.2 g/dl (6.1-8.1)
[2016-12-11] MEDS: CITALOPRAM 20 MG TAB PO SCH (15:31)
--- NOTE | 2016-12-11 19:15 | CONS ---
DATE OF ADMISSION: 12/11/2016 DATE OF CONSULTATION: 12/11/2016 HISTORY OF PRESENT ILLNESS: Mr. El is a 61-year-old male well known to me from his prior hospita lization 3 weeks ago. The patient was admitted for a small-bowel obstruction, likely from an enteri tis or IBD. The patient was doing well until last week, when he started having some abdominal pain. His symptoms persisted and worsened on Saturday and he thought it would possibly resolve, but over t he , his symptoms got worse and he had crampy abdominal pain, also with nausea. The patient presented to the ER where his workup was once again consistent with a small-bowel obstruction. I wa s called for consultation. PAST MEDICAL HISTORY: Significant for COPD, GERD, hypertension, anxiety, depression, and diabetes. PAST SURGICAL HISTORY: Appendectomy. SOCIAL HISTORY: He denies drinking, drug use, or smoking. MEDICATIONS: He takes: 1. Claritin. 2. Albuterol. 3. Bentyl. 4. Methocarbamol. 5. Lisinopril. 6. Aspirin. 7. Citalopram. 8. Reglan. 9. Prilosec. 10. Gabapentin. ALLERGIES: NO KNOWN ALLERGIES. PHYSICAL EXAMINATION: GENERAL: He is a well-developed, well-nourished male in some mild distress. VITAL SIGNS: He is afebrile. Vital signs stable. CHEST: Clear to auscultation bilaterally. HEART: Regular rhythm. ABDOMEN: Soft, nondistended, nontender. LABORATORY DATA: Reveal white count of 6, hematocrit of 40, platelets of 245. IMAGING: His CT today did reveal a small-bowel obstruction. I discussed this case with the radiolo gist and the fact that his CT had a thickened terminal ileum, this could be likely thickened again, but the patient did not get IV or oral contrast to better elucidate. ASSESSMENT AND PLAN: Mr. El is a 61-year-old male with recurrent small-bowel obstruction, likely inflammatory or infectious in nature. 1. He was seen by GI with small bowel series ordered for tomorrow. 2. I placed an NG tube. I was told by the ER, the NG tube was placed last night, but has not. 3. Should resolve with conservative therapy. 4. Needs more long-term follow up for ____. Dictated By: LIANG SIMMONS/NUZHAT Conf#: [id number] DID#: [id number] CC: JEFFERSON LANIER MD;*End*
[2016-12-11 19:58] VITALS: BP 152/87; RESP 18
[2016-12-11] MEDS: LORAZEPAM 2 MG INJ IV PRN (21:30)
[2016-12-11] MEDS: MOMETASONE 0.24 GM INHALER INH SCH (21:31)
[2016-12-12] MEDS: DEXTROSE 5%-0.9% NACL 1,000 ML IV SCH ×4 (00:01→20:32)
[2016-12-12] MEDS: HYDROmorphONE 1 MG/ML SYG IV PRN (08:30)
[2016-12-12] MEDS: FAMOTIDINE 20 MG INJ IV SCH ×2 (08:34→20:30)
[2016-12-12] MEDS: MOMETASONE 0.24 GM INHALER INH SCH ×2 (08:38→22:20)
[2016-12-12] MEDS: CITALOPRAM 20 MG TAB PO SCH (08:40)
[2016-12-12 09:00] VITALS: BP 159/87; RESP 20
--- NOTE | 2016-12-12 12:22 | CONS ---
Date/Time of Note Date/Time of Note DATE: 12/12/16 TIME: 12:16 Assessment/Plan Assessment/Plan Chief Complaint/Hosp Course a] patient presenting with a history of recurrent small bowel obstruction probably secondary to adhesions look neoplastic process p] recommend exploratory laparotomy is planned Problems: Consultation Date/Type/Reason Admit Date/Time Dec 11, 2016 at 01:29 Hx of Present Illness Patient admitted to the hospital with history of abdominal pain and vomiting has been going on intermittently in the past 2 weeks Symptoms got worse in the past several days and hence he got admitted to the hospital Needs to be mentioned that both for 5 weeks ago he was admitted to [facility] with small bowel obstruction which was resolved and he had a normal colonoscopy at that time past history includes appendectomy No history of Vomiting blood or passing blood from the rectum he has been passing gas intermittently today Please see the H&P for more information CAT scan of the abdomen showed evidence of a small bowel obstruction On examination Patient appears alert Nasogastric tube is draining light colored fluid Examination of the heart normal heart sounds respiratory system normal breath sounds Abdomen showed evidence of minimal distention but pretty soft The laboratory functions are significantly unremarkable CAT scan of the abdomen showed small bowel obstruction Past Surgical History Past Surgical Hx: appendectomy Social History Alcohol Use: none Smoking Status: Never smoker Drug Use: none Exam/Review of Systems Vital Signs Vitals Vital Signs Date Time Temp Pulse Resp B/P Pulse Ox O2 Delivery O2 Flow Rate FiO2 12/11/16 19:58 98.0 71 18 152/87 96 12/11/16 03:53 Room Air Intake and Output 12/11/16 12/11/16 12/12/16 15:00 23:00 07:00 Intake Total 1150 ml 500 ml 1125 ml Balance 1150 ml 500 ml 1125 ml Exam As mentioned earlier on patient is alert NG tube is in Abdomen showed minimal distention but is pretty soft nontender Labs are significantly unremarkable CAT scan of the abdomen with small bowel obstruction Results Result Diagram: 12/11/16 0745 12/11/16 0745 Medications Medications Current Medications Morphine Sulfate (morphine) 3 mg Q4H PRN IV PAIN Last administered on 04:46; Admin Dose 3 MG; Start 12/11/16 at 04:00 Famotidine (Pepcid Iv) 20 mg Q12 IV Last administered on 12/12/16 08:34; Admin Dose 20 MG; Start 12/11/16 at 09:00 Hydralazine HCl (Apresoline) 10 mg Q4H PRN IV ELEVATED SYSTOLIC BP; Start 12/11 at 04:00 Ondansetron HCl (Zofran Inj) 4 mg Q6H PRN IV NAUSEA AND/OR VOMITING; Start at 04:00 Hydromorphone HCl 1 mg 1 mg Q4H PRN IV PAIN Last administered on 12/12/16 08: 30; Admin Dose 1 MG; Start 12/11/16 at 06:00 Dextrose/Sodium Chloride (D5-NS) 1,000 ml @ 125 mls/hr Q8H IV Last administered on 12/12/16 08:34; Admin Dose 125 MLS/HR; Start 12/11/16 at 06:30 Citalopram Hydrobromide (Celexa) 40 mg DAILY PO Last administered on 12/12/16 08:40; Admin Dose 40 MG; Start 12/11/16 at 14:30 Mometasone Furoate (Asmanex) 1 puff BID INH Last administered on 12/12/16 08: 38; Admin Dose 1 PUFF; Start 12/11/16 at 21:00 Lorazepam (Ativan) 1 mg Q4H PRN IV ANXIETY Last administered on 12/11/16 21:30 ; Admin Dose 1 MG; Start 12/11/16 at 21:00 HARRIS DWYER MD Dec 12, 2016 12:22
[2016-12-12] MEDS: morphine 4 MG/ML VIAL IV PRN ×2 (12:26→20:31)
[2016-12-12] MEDS ORDERED: DIATR MEGLU/DIATRIZOATE SODIUM 120 ML BTL ONE (13:16)
--- NOTE | 2016-12-12 16:27 | PN ---
Date/Time of Note Date/Time of Note DATE: 12/12/16 TIME: 16:22 Assessment/Plan VTE Prophylaxis VTE Prophylaxis Intervention: SCD's Lines/Catheters IV Catheter Type (from Nrsg): Peripheral IV Assessment/Plan Chief Complaint/Hosp Course 1. Small bowel obstruction with abdominal pain -plan is for Ex Lap today -NGT placed 2. COPD-stable 3. Hyponatremia -monitor 4. History of anxiety and depression -cont Rx 5. HTN -cont home Rx PPx- SCD's Problems: Subjective 24 Hr Interval Summary Gastrointestinal: pain Exam/Review of Systems Vital Signs Vitals Vital Signs Date Time Temp Pulse Resp B/P Pulse Ox O2 Delivery O2 Flow Rate FiO2 12/12/16 09:00 20 159/87 97 Room Air 12/11/16 19:58 98.0 71 Intake and Output 12/11/16 12/11/16 12/12/16 15:00 23:00 07:00 Intake Total 1150 ml 500 ml 1125 ml Balance 1150 ml 500 ml 1125 ml Exam Constitutional: alert, oriented Respiratory: clear to auscultation Cardiovascular: regular rate and rhythm Gastrointestinal: soft, tender, No distended Musculoskeletal: nl extremities to inspection Results Result Diagram: 12/11/16 0745 12/11/16 0745 Medications Medications Current Medications Morphine Sulfate (morphine) 3 mg Q4H PRN IV PAIN Last administered on 12:26; Admin Dose 3 MG; Start 12/11/16 at 04:00 Famotidine (Pepcid Iv) 20 mg Q12 IV Last administered on 12/12/16 08:34; Admin Dose 20 MG; Start 12/11/16 at 09:00 Hydralazine HCl (Apresoline) 10 mg Q4H PRN IV ELEVATED SYSTOLIC BP; Start 12/11 at 04:00 Ondansetron HCl (Zofran Inj) 4 mg Q6H PRN IV NAUSEA AND/OR VOMITING Last administered on 12/12/16 15:56; Admin Dose 4 MG; Start 12/11/16 at 04:00 Hydromorphone HCl 1 mg 1 mg Q4H PRN IV PAIN Last administered on 12/12/16 08: 30; Admin Dose 1 MG; Start 12/11/16 at 06:00 Dextrose/Sodium Chloride (D5-NS) 1,000 ml @ 125 mls/hr Q8H IV Last administered on 12/12/16 08:34; Admin Dose 125 MLS/HR; Start 12/11/16 at 06:30 Citalopram Hydrobromide (Celexa) 40 mg DAILY PO Last administered on 12/12/16 08:40; Admin Dose 40 MG; Start 12/11/16 at 14:30 Mometasone Furoate (Asmanex) 1 puff BID INH Last administered on 12/12/16 08: 38; Admin Dose 1 PUFF; Start 12/11/16 at 21:00 Lorazepam (Ativan) 1 mg Q4H PRN IV ANXIETY Last administered on 12/11/16 21:30 ; Admin Dose 1 MG; Start 12/11/16 at 21:00 ALEJANDRO DONALDSON Dec 12, 2016 16:27
[2016-12-12] MEDS: LORAZEPAM 2 MG INJ IV PRN (18:23)
--- NOTE | 2016-12-12 18:50 | RADRPT ---
PROCEDURE: XR acute abdominal series. CLINICAL INDICATION: Small bowel obstruction. TECHNIQUE: 17 pre and post oral contrast images of the abdomen were obtained. COMPARISON: CT abdomen and pelvis dated 12/11/2016. Plain film abdomen dated 11/20/2016. FINDINGS: Nasogastric tube in place. Dilation of small bowel compatible with a degree of obstruction. Oral c ontrast transits small bowel and enters the colon and rectum over 5 hours. Findings are compatible with an incomplete, but persistent small bowel obstruction. Dilated loops of air-filled small bowel are seen on the 15-minute film, measuring up to about 96 mm in diameter. Decreased caliber small bowel seen in the right pelvis on the 5-hour film, compatible w ith transition from dilated small bowel to normal caliber small bowel. Point of transition is other sung not specifically identified. Transition from the dilated small bowel to normal caliber small nori wel is compatible with CT examination dated 12/11/2016. Contrast material has the appearance of water soluble contrast, and recommend CT correlation no than the bowel contains oral contrast. IMPRESSION: 1. Dilated loops of small bowel are compatible with a degree of small bowel obstruction. 2. Contrast material enters the colon and rectum over 5 hours. 3. Findings are compatible with an incomplete, but persistent small bowel obstruction. 4. There is transition from dilated small bowel to normal caliber small bowel, without identified p oint of transition. 5. Recommend CT correlation. RPTAT: [facility]U Physician Allie Date Time Electronically viewed and signed by Physician Allie on 12/12/2016 18:50 RS/
[2016-12-12 19:00] VITALS: BP 159/91; RESP 20
--- NOTE | 2016-12-12 19:36 | PN ---
DATE: 12/12/2016 SUBJECTIVE: Mr. El is hospital day 1 for a small-bowel obstruction. The patient is feeling much better, he has had multiple bowel movements today. OBJECTIVE: VITAL SIGNS: He is afebrile. Vital signs stable. ABDOMEN: Soft, nontender, nondistended. LABORATORY DATA: No labs today. He did have a small-bowel series today which did reveal contrast in the colon within 5 hours. There are dilated loops of small-bowel with a degree of small-bowel ob struction. Series incomplete for persistent small-bowel obstruction. ASSESSMENT AND PLAN: Mr. El is a 61-year-old male with a resolving small-bowel obstruction. 1. Will need to discuss with GI for further course of management. 2. At this point, I favor more of an infectious inflammatory etiology. It would be unlikely if thi s is an anatomical issue that he resolved then worsened after 3 weeks, but will discuss further with GI. Dictated By: LIANG SIMMONS/NUZHAT Conf#: [id number] DID#: [id number]
[2016-12-12] MEDS: hydrALAzine 20 MG INJ IV PRN (20:31)
--- NOTE | 2016-12-12 21:00 | PN ---
DATE: 12/12/2016 ADDENDUM I discussed the case with Dr. Santo, GI doctor. Dr. Santo is willing to do a colonoscopy as soon as tomorrow. Due to the fact this is very unlikely Crohn disease, I am concerned of the possibility of small bowel obstruction from his prior appendectomy. I discussed laparoscopic, possible open, lysis of adhesions , possible bowel resection with the patient. All benefits, risks, alternatives were discussed in detail, questions answered, and the patient elects to proceed. Dictated By: LIANG GEE MD MAL/NTS Conf#: [id number] DID#: [id number] CC: JEFFERSON LANIER MD;*EndCC* MTDD
[2016-12-12 22:30] VITALS: BP 151/82; PULSE 86; RESP 22
[2016-12-13] VITALS (27 sets, daily range): BP systolic 97–192; BP diastolic 51–99; PULSE 74–100; RESP 17–20
[2016-12-13] MEDS: morphine 4 MG/ML VIAL IV PRN ×3 (00:06→12:38)
[2016-12-13] MEDS: DEXTROSE 5%-0.9% NACL 1,000 ML IV SCH ×3 (04:43→14:30)
[2016-12-13 06:16] LABS: ADD SCAN DIFF NO
[2016-12-13 06:17] LABS: BASOPHILS % 0.5 % (0.0-2.0); HEMATOCRIT 33.9 % (42.0-52.0); HEMOGLOBIN 11.5 g/dl (14.0-18.0); LYMPHOCYTES # 1.4 10^3/ul (0.8-2.9); LYMPHOCYTES % 33.8 % (15.0-51.0); MEAN CORPUSCULAR HEMOGLOBIN 31.9 pg (29.0-33.0); MEAN CORPUSCULAR HGB CONC 33.9 g/dl (32.0-37.0); MEAN CORPUSCULAR VOLUME 94.2 fl (82.0-101.0); MEAN PLATELET VOLUME 9.3 fl (7.4-10.4); MONOCYTE # 0.6 10^3/ul (0.3-0.9); MONOCYTES % 13.3 % (0.0-11.0); NEUTROPHIL # 2.2 10^3/ul (1.6-7.5); NEUTROPHILS % 51.2 % (39.0-77.0); PLATELET COUNT 253 10^3/UL (140-415); RED CELL DISTRIBUTION WIDTH 12.4 % (11.5-14.5); WHITE BLOOD COUNT 4.2 10^3/ul (4.8-10.8)
[2016-12-13 06:43] LABS: CALCIUM 8.7 mg/dl (8.4-10.2); CREATININE 0.74 mg/dl (0.61-1.24); MAGNESIUM 2.3 mg/dl (1.7-2.5); PHOSPHORUS 4.2 mg/dl (2.5-4.9); POTASSIUM 3.7 mmol/L (3.5-5.1)
[2016-12-13] MEDS ORDERED: LIDOCAINE 2% (SDV) 5 ML INJ ONE (07:00)
[2016-12-13] MEDS ORDERED: ETOMIDATE 20 MG INJ ONE (07:00)
[2016-12-13] MEDS: LORAZEPAM 2 MG INJ IV PRN ×2 (08:35→14:50)
[2016-12-13] MEDS: FAMOTIDINE 20 MG INJ IV SCH (08:36)
[2016-12-13] MEDS: hydrALAzine 20 MG INJ IV PRN (08:36)
[2016-12-13] MEDS: LISINOPRIL 20 MG TAB PO SCH (08:36)
[2016-12-13] MEDS: CITALOPRAM 20 MG TAB PO SCH (08:37)
[2016-12-13] MEDS: MOMETASONE 0.24 GM INHALER INH SCH (08:38)
--- NOTE | 2016-12-13 16:35 | PN ---
Date/Time of Note Date/Time of Note DATE: 12/13/16 TIME: 16:35 Assessment/Plan VTE Prophylaxis VTE Prophylaxis Intervention: SCD's Lines/Catheters IV Catheter Type (from Nrsg): Peripheral IV Assessment/Plan Chief Complaint/Hosp Course 1. Small bowel obstruction with abdominal pain -plan is for Ex Lap today -NGT placed 2. COPD-stable 3. Hyponatremia -monitor 4. History of anxiety and depression -cont Rx 5. HTN -cont home Rx PPx- SCD's Problems: Subjective 24 Hr Interval Summary Gastrointestinal: pain Exam/Review of Systems Vital Signs Vitals Vital Signs Date Time Temp Pulse Resp B/P Pulse Ox O2 Delivery O2 Flow Rate FiO2 12/13/16 08:20 98.6 76 18 192/99 98 12/12/16 22:30 Room Air Intake and Output 12/12/16 12/12/16 12/13/16 15:00 23:00 07:00 Intake Total 875 ml 500 ml 1000 ml Output Total 600 ml 100 ml Balance 875 ml -100 ml 900 ml Exam Constitutional: alert, oriented Respiratory: clear to auscultation Cardiovascular: regular rate and rhythm Gastrointestinal: soft, tender, No distended Musculoskeletal: nl extremities to inspection Results Result Diagram: 12/13/16 0535 12/13/16 0535 Results 24 hrs Laboratory Tests Test 12/13/16 05:35 White Blood Count 4.2 #L Red Blood Count 3.60 L Hemoglobin 11.5 L Hematocrit 33.9 L Mean Corpuscular Volume 94.2 Mean Corpuscular Hemoglobin 31.9 Mean Corpuscular Hemoglobin Concent 33.9 Red Cell Distribution Width 12.4 Platelet Count 253 Mean Platelet Volume 9.3 Neutrophils % 51.2 Lymphocytes % 33.8 Monocytes % 13.3 H Eosinophils % 1.0 Basophils % 0.5 Nucleated Red Blood Cells % 0.0 Neutrophils # 2.2 Lymphocytes # 1.4 Monocytes # 0.6 Eosinophils # 0.0 Basophils # 0.0 Nucleated Red Blood Cells # 0.0 Sodium Level 131 L Potassium Level 3.7 Chloride Level 103 Carbon Dioxide Level 25 Anion Gap 7 L Blood Urea Nitrogen 7 Creatinine 0.74 Glucose Level 124 Calcium Level 8.7 Phosphorus Level 4.2 Magnesium Level 2.3 Medications Medications Current Medications Morphine Sulfate (morphine) 3 mg Q4H PRN IV PAIN Last administered on t 12:38; Admin Dose 3 MG; Start 12/11/16 at 04:00 Famotidine (Pepcid Iv) 20 mg Q12 IV Last administered on 12/13/16 08:36; Admin Dose 20 MG; Start 12/11/16 at 09:00 Hydralazine HCl (Apresoline) 10 mg Q4H PRN IV ELEVATED SYSTOLIC BP Last administered on 12/13/16 08:36; Admin Dose 10 MG; Start 12/11/16 at 04:00 Ondansetron HCl (Zofran Inj) 4 mg Q6H PRN IV NAUSEA AND/OR VOMITING Last administered on 12/12/16 15:56; Admin Dose 4 MG; Start 12/11/16 at 04:00 Hydromorphone HCl 1 mg 1 mg Q4H PRN IV PAIN Last administered on 12/12/16 08: 30; Admin Dose 1 MG; Start 12/11/16 at 06:00 Dextrose/Sodium Chloride (D5-NS) 1,000 ml @ 125 mls/hr Q8H IV Last administered on 12/13/16 13:05; Admin Dose 125 MLS/HR; Start 12/11/16 at 06:30 Citalopram Hydrobromide (Celexa) 40 mg DAILY PO Last administered on 12/13/16 08:37; Admin Dose 40 MG; Start 12/11/16 at 14:30 Mometasone Furoate (Asmanex) 1 puff BID INH Last administered on 12/13/16 08: 38; Admin Dose 1 PUFF; Start 12/11/16 at 21:00 Lorazepam (Ativan) 1 mg Q4H PRN IV ANXIETY Last administered on 12/13/16 14:50 ; Admin Dose 1 MG; Start 12/11/16 at 21:00 Lisinopril (Zestril) 40 mg DAILY PO Last administered on 12/13/16 08:36; Admin Dose 40 MG; Start 12/13/16 at 09:00 ALEJANDRO DONALDSON Dec 13, 2016 16:35
--- NOTE | 2016-12-13 17:26 | RADRPT ---
Vent Rate: 71 bpm RR Interval: 0 msec MN Interval: 118 msec QRS Duration: 90 msec QT Interval: 418 msec QTC Interval: 454 msec P-R-T [place]: 39 - 50 - 57 degrees Normal sinus rhythm Normal ECG Electronically Signed By: Rafael Paris [id number]
[2016-12-13] MEDS ORDERED: CEFAZOLIN 1 GM INJ ONE (19:39)
[2016-12-13] MEDS ORDERED: ONDANSETRON 4 MG INJ ONE (19:39)
[2016-12-13] MEDS ORDERED: GLYCOPYRROLATE 0.4 MG INJ ONE (19:39)
[2016-12-13] MEDS ORDERED: DEXAMETHASONE 4 MG/ML 1 ML INJ ONE (19:39)
[2016-12-13] MEDS ORDERED: ROCURONIUM 50 MG INJ ONE (19:39)
[2016-12-13] MEDS ORDERED: FENTAnyl 50 MCG/ML VIAL ONE (19:39)
[2016-12-13] MEDS ORDERED: NEOSTIGMINE 3 MG/3 ML SYRINGE ONE (19:39)
[2016-12-13] MEDS ORDERED: PROPOFOL 20 ML ONE (19:39)
[2016-12-13] MEDS ORDERED: MIDAZOLAM 1 MG/ML 2 ML INJ ONE (19:39)
[2016-12-13] MEDS ORDERED: morphine SULFATE/PF (10 MG/10 ML) INJ ONE (19:42)
[2016-12-13] MEDS ORDERED: ALBUMIN HUMAN 5% 500 ML ONE (20:52)
[2016-12-13] MEDS ORDERED: BUPIVACAINE 0.25% (MPF) 30 ML INJ INJ ONE (21:00)
[2016-12-13] MEDS ORDERED: ONDANSETRON 4 MG INJ IV PRN ×3 (21:30→22:00)
[2016-12-13] MEDS ORDERED: ACETAMINOPHEN 325 MG TAB PO PRN (21:30)
[2016-12-13] MEDS ORDERED: morphine 2 MG INJ IV PRN (21:30)
[2016-12-13] MEDS ORDERED: DIPHENHYDRAMINE 50 MG INJ IV PRN ×2 (22:00)
[2016-12-13] MEDS ORDERED: FENTAnyl 50 MCG/ML VIAL IV PRN ×3 (22:00)
[2016-12-13] MEDS ORDERED: ZOLPIDEM 5 MG TAB PO PRN (22:00)
[2016-12-13] MEDS ORDERED: NALOXONE (0.4 MG/ML) INJ IV PRN (22:00)
[2016-12-13] MEDS ORDERED: EPHEDrine SULFATE 50 MG/5 ML SYG IV PRN (22:00)
[2016-12-13] MEDS ORDERED: HYDROmorphONE 1 MG/ML SYG IV PRN ×2 (22:00)
[2016-12-13] MEDS ORDERED: MEPERIDINE 25 MG INJ IV PRN (22:00)
[2016-12-13] MEDS ORDERED: MIDAZOLAM 1 MG/ML 2 ML INJ IV PRN (22:00)
[2016-12-13] MEDS ORDERED: NALBUPHINE HCL (10 MG/1 ML) INJ IV PRN (22:00)
[2016-12-13] MEDS ORDERED: hydrALAzine 20 MG INJ IV PRN (22:00)
[2016-12-13] MEDS ORDERED: LABETALOL HCL 20MG INJ IV PRN (22:00)
[2016-12-13] MEDS ORDERED: HYDROmorphONE (0.2 MG/ML) 10ML SYG IV PRN ×3 (22:00)
[2016-12-13] MEDS ORDERED: TRIMETHOBENZAMIDE 100 MG/ML VIAL IM PRN ×2 (22:00)
[2016-12-13] MEDS: KETOROLAC 30 MG INJ IV SCH (23:45)
[2016-12-14] VITALS (10 sets, daily range): BP systolic 125–169; BP diastolic 66–89; PULSE 88–111; RESP 16–20
[2016-12-14] MEDS: MOMETASONE 0.24 GM INHALER INH SCH ×3 (00:49→21:21)
[2016-12-14] MEDS: FAMOTIDINE 20 MG INJ IV SCH ×2 (00:49→09:19)
[2016-12-14] MEDS: LORAZEPAM 2 MG INJ IV PRN ×3 (00:58→09:19)
[2016-12-14] MEDS: D5W-0.45 NACL + KCL 20 MEQ 1,000 ML IV SCH ×4 (00:58→19:42)
[2016-12-14] MEDS: HYDROmorphONE 1 MG/ML SYG IV PRN ×4 (03:12→19:41)
[2016-12-14] MEDS: KETOROLAC 30 MG INJ IV SCH ×4 (05:10→21:21)
[2016-12-14 05:20] LABS: ADD SCAN DIFF NO
[2016-12-14] MEDS: PANTOPRAZOLE 40 MG INJ IV SCH (05:20)
[2016-12-14 05:26] LABS: HEMATOCRIT 30.1 % (42.0-52.0); HEMOGLOBIN 10.4 g/dl (14.0-18.0); LYMPHOCYTES # 0.7 10^3/ul (0.8-2.9); LYMPHOCYTES % 10.3 % (15.0-51.0); MEAN CORPUSCULAR HEMOGLOBIN 32.4 pg (29.0-33.0); MEAN CORPUSCULAR HGB CONC 34.6 g/dl (32.0-37.0); MEAN CORPUSCULAR VOLUME 93.8 fl (82.0-101.0); MEAN PLATELET VOLUME 9.4 fl (7.4-10.4); MONOCYTE # 0.3 10^3/ul (0.3-0.9); MONOCYTES % 5.2 % (0.0-11.0); NEUTROPHIL # 5.3 10^3/ul (1.6-7.5); NEUTROPHILS % 84.2 % (39.0-77.0); PLATELET COUNT 236 10^3/UL (140-415); RED BLOOD COUNT 3.21 10^6/ul (4.70-6.10); RED CELL DISTRIBUTION WIDTH 12.2 % (11.5-14.5); WHITE BLOOD COUNT 6.3 10^3/ul (4.8-10.8)
[2016-12-14 05:42] LABS: CALCIUM 8.7 mg/dl (8.4-10.2); CREATININE 0.73 mg/dl (0.61-1.24); POTASSIUM 4.4 mmol/L (3.5-5.1)
--- NOTE | 2016-12-14 06:54 | OPR ---
DATE OF OPERATION: 12/13/2016 PREOPERATIVE DIAGNOSIS: Small-bowel obstruction. 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 PROCEDURES: 1. Diagnostic laparoscopy. 2. Ex lap and Small-bowel resection. SURGEON: Liang Copeland MD DRESSAGE INSTRUCTOR: Martina ANESTHESIA: GET ANESTHESIOLOGIST: MD Tiara FINDINGS: there was a tumor, causing a small-bowel obstruction in the terminal ileum SPECIMEN: terminal ileum INDICATIONS: The patient is a 61 year old male who presented to [facility] ER 4 weeks ago w/ a SBO. and a transition point in the terminal ileum. There was thickening of the terminal ileum. These symptoms resolved. He was discharged home. He returned 2 days ago with a small-bowel obstruction once again. He did undergo a colonoscopy which did not show any evidence of Crohn disease in the terminal ileum. Due to the recurrence of his bowel obstruction, I felt that he needed exploration. I discussed proceeding with a laparoscopic, possible open lysis of adhesions, possible bowel resection with the patient. All benefits, risks, alternatives discussed in detail, questions answered. The patient elected to proceed. DESCRIPTION OF PROCEDURE: The patient was brought to the operating room, placed supine on the table. After preoperative antibiotics and SCDs were placed , the patient was intubated. A Ward catheter was inserted, and the abdomen was cleaned, prepped, draped in sterile fashion. A 5 mm incision was made in left upper quadrant. Using a 5 mm laparoscope-containing trocar, the abdomen was entered under direct vision, insufflated to 15 mmHg of CO2. The following trocars were then placed under direct vision: Left lower quadrant 5 mm and a 5 mm at the level of the umbilicus in the anterior axillary line. There were multiple loops of small bowel that were dilated, identified in the cecum, and the most distal terminal ileum was collapsed. Proximal to this was a very thickened, sick, ill-appearing loop of terminal ileum, and then the entire small bowel was dilated to the ligament of Treitz. I ran the entire bowel. At this point, I felt that the pathology was in terminal ileum and it required a small bowel resection. Therefore, using Harmonic scalpel, I mobilized the cecum off of the lateral sidewall as well as the terminal ileum. I then mobilized the cecum, ascending colon and terminal ileum. At this point, I then made a lower midline incision, using electrocautery dissected through the abdominal wall, and as it entered the abdomen, I brought my cecum and terminal ileum out of the abdominal wall. I then divided the terminal ileum proximal to the ileocecal valve with a 75 mm endolinear cutter blue load. I then divided proximal to disease the ileum with a 75 mm Endo linear cutter blue load. The intervening mesentery was then serially clamped, tied, and divided, passed off the field as specimen. A [id number] functional, end-to-end with double stapled anastomosis was performed from ileum to ascending colon with a 75 mm Endo linear cutter blue load. The enterotomy was closed with a TA-60 stapler. A 3-0 silk suture was placed in the crotch of the anastomosis to take tension off the end of the staple line. The anastomosis was hemostatic, was airtight without tension. I closed the mesenteric defect with interrupted 3-0 silk sutures. The anastomosis was returned to the abdomen. I visualized the abdomen , was hemostatic. I closed the incision with two 0 looped PDS sutures, 1 superiorly and 1 inferiorly. It was tied in the middle. The wound was irrigated and closed with 4-0 Monocryl, Mastisol, Steri-Strips, 2x2 gauze and Tegaderm. The trocar sites were closed with 4-0 Monocryl, Mastisol and Steri- Strips. The patient tolerated procedure well, was extubated in the OR and transferred to recovery room in stable condition. Dictated By: LIANG SIMMONS/NUZHAT Conf#: [id number] DID#: [id number] JOAQUIN
[2016-12-14] MEDS: CITALOPRAM 20 MG TAB PO SCH (09:19)
[2016-12-14] MEDS: LISINOPRIL 20 MG TAB PO SCH (09:19)
[2016-12-14] MEDS: ENOXAPARIN 40 MG/0.4 ML SYG SC SCH (09:31)
--- NOTE | 2016-12-14 13:59 | PN ---
DATE: SUBJECTIVE: The patient says he is doing fine, not passing gas yet. Objectively, he is alert. He u nderwent exploratory laparotomy yesterday and there was evidence of abnormal terminal ileum and thic kening of the terminal ileum was noted. He underwent a small bowel resection. The pathology, at this time I called the laboratory, it is pending. PHYSICAL EXAMINATION: GENERAL: The patient is a 61-year-old white male who at this time is alert. VITAL SIGNS: Afebrile, temperature 98.0, blood pressure 135/70. CARDIOVASCULAR: Normal heart sounds. RESPIRATORY: Normal breath sounds. ABDOMEN: Status post surgery. CLINICAL IMPRESSION: Status post small bowel resection. The pathology of the small bowel is still pending. Whether it is inflammatory bowel disease or neoplasm is not very clear. PLAN: Wait for the pathology report. Dictated By: HARRIS ARIAS/NUZHAT Conf#: [id number] DID#: [id number] CC: HARRIS DWYER MD;*EndCC*
--- NOTE | 2016-12-14 14:40 | PN ---
Date/Time of Note Date/Time of Note DATE: 12/14/16 TIME: 14:38 Assessment/Plan VTE Prophylaxis VTE Prophylaxis Intervention: SCD's Lines/Catheters IV Catheter Type (from Nrs): Peripheral IV Assessment/Plan Chief Complaint/Hosp Course 1. Small bowel obstruction with abdominal pain 2/2 mass -F/U on path -s/p small bowel resection 2. COPD-stable 3. Hyponatremia -monitor 4. History of anxiety and depression -cont Rx 5. HTN -cont home Rx PPx- SCD's Problems: Subjective 24 Hr Interval Summary Constitutional: no complaints Exam/Review of Systems Vital Signs Vitals Vital Signs Date Time Temp Pulse Resp B/P Pulse Ox O2 Delivery O2 Flow Rate FiO2 12/14/16 08:29 98.0 81 16 135/70 98 12/14/16 05:23 Nasal Cannula 12/14/16 02:30 2.0 Intake and Output 12/13/16 12/13/16 12/14/16 15:00 23:00 07:00 Intake Total 1000 ml 4500 ml 400 ml Output Total 800 ml 1900 ml Balance 1000 ml 3700 ml -1500 ml Exam Constitutional: alert, oriented Respiratory: clear to auscultation Cardiovascular: regular rate and rhythm Gastrointestinal: soft, No distended Musculoskeletal: nl extremities to inspection Results Result Diagram: 12/14/16 0435 12/14/16 0425 Results 24 hrs Laboratory Tests Test 12/14/16 04:25 12/14/16 04:35 Sodium Level 131 L Potassium Level 4.4 Chloride Level 98 Carbon Dioxide Level 26 Anion Gap 11 Blood Urea Nitrogen 7 Creatinine 0.73 Glucose Level 161 Calcium Level 8.7 White Blood Count 6.3 # Red Blood Count 3.21 L Hemoglobin 10.4 L Hematocrit 30.1 L Mean Corpuscular Volume 93.8 Mean Corpuscular Hemoglobin 32.4 Mean Corpuscular Hemoglobin Concent 34.6 Red Cell Distribution Width 12.2 Platelet Count 236 Mean Platelet Volume 9.4 Neutrophils % 84.2 H Lymphocytes % 10.3 L Monocytes % 5.2 Eosinophils % 0.0 Basophils % 0.0 Nucleated Red Blood Cells % 0.0 Neutrophils # 5.3 Lymphocytes # 0.7 L Monocytes # 0.3 Eosinophils # 0.0 Basophils # 0.0 Nucleated Red Blood Cells # 0.0 Medications Medications Current Medications Famotidine (Pepcid Iv) 20 mg Q12 IV Last administered on 12/14/16 09:19; Admin Dose 20 MG; Start 12/11/16 at 09:00 Hydralazine HCl (Apresoline) 10 mg Q4H PRN IV ELEVATED SYSTOLIC BP Last administered on 12/13/16 08:36; Admin Dose 10 MG; Start 12/11/16 at 04:00 Hydromorphone HCl (Dilaudid) 1 mg Q4H PRN IV PAIN Last administered on 08:17; Admin Dose 1 MG; Start 12/11/16 at 06:00 Citalopram Hydrobromide (Celexa) 40 mg DAILY PO Last administered on 12/14/16 09:19; Admin Dose 40 MG; Start 12/11/16 at 14:30 Mometasone Furoate (Asmanex) 1 puff BID INH Last administered on 12/13/16 08: 38; Admin Dose 1 PUFF; Start 12/11/16 at 21:00 Lorazepam (Ativan) 1 mg Q4H PRN IV ANXIETY Last administered on 12/14/16 09:19 ; Admin Dose 1 MG; Start 12/11/16 at 21:00 Lisinopril (Zestril) 40 mg DAILY PO Last administered on 12/14/16 09:19; Admin Dose 40 MG; Start 12/13/16 at 09:00 Morphine Sulfate (morphine) 2 mg Q2H PRN IV PAIN LEVEL 6-10; Start 12/13/16 at 21:30 Ketorolac Tromethamine (Toradol) 15 mg Q6H IV Last administered on 12/14/16 10 :23; Admin Dose 15 MG; Start 12/13/16 at 22:00; Stop 12/15/16 at 16:01 Acetaminophen (Tylenol Tab) 650 mg Q6H PRN PO PAIN AND OR ELEVATED TEMP; Start 12/13/16 at 21:30 Ondansetron HCl (Zofran Inj) 4 mg Q6H PRN IV NAUSEA AND/OR VOMITING; Start at 21:30 Pantoprazole 40 mg 40 mg DAILY@06 IV Last administered on 12/14/16 05:20; Admin Dose 40 MG; Start 12/14/16 at 06:00 Potassium Chloride/Dextrose/ Sod Cl (D5-1/2ns + KCl 20 Meq) 1,000 ml @ 100 mls/ hr Q10H IV Last administered on 12/14/16 09:18; Admin Dose 100 MLS/HR; Start 12/13/16 at 21:27 Enoxaparin Sodium (Lovenox) 40 mg DAILY@07 SC Last administered on 12/14/16 09 :31; Admin Dose 40 MG; Start 12/14/16 at 07:00 ALEJANDRO DONALDSON Dec 14, 2016 14:40
[2016-12-15] MEDS: HYDROmorphONE 1 MG/ML SYG IV PRN ×4 (03:21→23:20)
[2016-12-15] MEDS: D5W-0.45 NACL + KCL 20 MEQ 1,000 ML IV SCH ×4 (03:27→23:27)
[2016-12-15] MEDS: KETOROLAC 30 MG INJ IV SCH ×3 (04:32→15:44)
[2016-12-15 04:56] LABS: ADD SCAN DIFF NO
[2016-12-15 05:01] LABS: BASOPHILS % 0.2 % (0.0-2.0); EOSINOPHILS % 0.5 % (0.0-7.0); HEMATOCRIT 30.7 % (42.0-52.0); HEMOGLOBIN 10.4 g/dl (14.0-18.0); LYMPHOCYTES # 1.3 10^3/ul (0.8-2.9); LYMPHOCYTES % 22.5 % (15.0-51.0); MEAN CORPUSCULAR HEMOGLOBIN 31.8 pg (29.0-33.0); MEAN CORPUSCULAR HGB CONC 33.9 g/dl (32.0-37.0); MEAN CORPUSCULAR VOLUME 93.9 fl (82.0-101.0); MEAN PLATELET VOLUME 9.6 fl (7.4-10.4); MONOCYTE # 0.7 10^3/ul (0.3-0.9); MONOCYTES % 12.7 % (0.0-11.0); NEUTROPHIL # 3.6 10^3/ul (1.6-7.5); NEUTROPHILS % 63.7 % (39.0-77.0); PLATELET COUNT 228 10^3/UL (140-415); RED BLOOD COUNT 3.27 10^6/ul (4.70-6.10); RED CELL DISTRIBUTION WIDTH 12.5 % (11.5-14.5); WHITE BLOOD COUNT 5.7 10^3/ul (4.8-10.8)
[2016-12-15] MEDS: LORAZEPAM 2 MG INJ IV PRN ×3 (05:07→20:01)
[2016-12-15] MEDS: PANTOPRAZOLE 40 MG INJ IV SCH (05:14)
[2016-12-15 05:15] VITALS: BP 163/84; PULSE 94; RESP 18
[2016-12-15] MEDS: hydrALAzine 20 MG INJ IV PRN (05:15)
[2016-12-15 05:18] LABS: CREATININE 0.86 mg/dl (0.61-1.24); POTASSIUM 4.2 mmol/L (3.5-5.1)
[2016-12-15 05:30] VITALS: BP_SYST 141; BP_SYST 162; BP_DIAS 72; BP_DIAS 82; PULSE 74; PULSE 83; RESP 18
[2016-12-15 05:45] VITALS: BP 151/82; PULSE 91; RESP 19
[2016-12-15 06:00] VITALS: BP 131/73; PULSE 88; RESP 16
--- NOTE | 2016-12-15 06:01 | PN ---
DATE: 12/14/2016 SUBJECTIVE: Mr. El is postop day 1 from a small bowel resection. The patient is resting comfort ably. He has no complaints. He has had a bowel movement this morning, but no flatus. PHYSICAL EXAMINATION: VITAL SIGNS: He is afebrile. Vital signs are stable. CHEST: Clear to auscultation bilaterally. HEART: Regular rhythm. ABDOMEN: Soft, nontender, mildly distended. Wound is clean, dry and intact. LABORATORY: Reveal a white count of 6, hematocrit 38 and platelets of 236. Sodium 131, potassium 4 .4, chloride 98, CO2 26, BUN and creatinine 7 and 0.7, and glucose 161. ASSESSMENT AND PLAN: 1. Mr. El is postop day 1 from a small bowel resection. 2. N.p.o. until bowel movement or flatus. 3. Discontinue Ward tomorrow. 4. Await pathology results. Dictated By: LIANG SIMMONS/NUZHAT Conf#: [id number] DID#: [id number]
[2016-12-15] MEDS: ENOXAPARIN 40 MG/0.4 ML SYG SC SCH (07:12)
[2016-12-15 07:24] VITALS: BP 140/73; RESP 16
--- NOTE | 2016-12-15 07:56 | PN ---
DATE: 12/15/2016 Mr. El is now postop day #2. He is resting comfortably with minimal complaints. I did not wish to wake him up this morning as he is sleeping very comfortably. OBJECTIVE VITAL SIGNS: He is afebrile. Vital signs stable. Overnight he had 700 mL out. He had a BM yesterday and the Ward was removed this morning. ABDOMEN: Soft, nondistended. His wound is clean, dry, and intact. LABORATORY DATA: His labs today reveal a white count of 6, hematocrit 31, and platelets of 228. Sodium 133, potassium 4.2, chloride 100, CO2 27, BUN 7 and creatinine 0.8, and a glucose of 131. ASSESSMENT AND PLAN: At this time, Mr. El is a 61-year-old male, status post small bowel resection for ileal mass. 1. Ileus. Advance to clears after bowel movement or flatus. 2. Ward discontinued. 3. Okay for discharge once tolerating a soft diet and having bowel movements. Dictated By: LIANG SIMMONS/NUZHAT Conf#: [id number] DID#: [id number] MTDD
[2016-12-15] MEDS: MOMETASONE 0.24 GM INHALER INH SCH ×2 (09:31→21:00)
[2016-12-15] MEDS: CITALOPRAM 20 MG TAB PO SCH (09:31)
[2016-12-15] MEDS: LISINOPRIL 20 MG TAB PO SCH (09:32)
--- NOTE | 2016-12-15 14:19 | PN ---
DATE: SUBJECTIVE: He has no complaints. He said he has not had a good bowel movement yet. He has no significant abdominal pain. PHYSICAL EXAMINATION: Status post exploratory laparotomy the abdomen is soft, nontender. LABORATORY WORKUP: WBC count 5700, hemoglobin 10.4, hematocrit 30.7. CLINICAL IMPRESSION: Status post exploratory laparotomy. of the small bowel distally. At thi s time pathology is pending. Meanwhile plan to continue the present management as per Dr. Copeland. Dictated By: HARRIS ARIAS/NUZHAT Conf#: [id number] DID#: [id number]
--- NOTE | 2016-12-15 17:00 | PN ---
Date/Time of Note Date/Time of Note DATE: 12/15/16 TIME: 16:59 Assessment/Plan VTE Prophylaxis VTE Prophylaxis Intervention: SCD's Lines/Catheters IV Catheter Type (from Nrs): Peripheral IV Assessment/Plan Chief Complaint/Hosp Course 1. Small bowel obstruction with abdominal pain 2/2 mass -F/U on path -s/p small bowel resection 2. COPD-stable 3. Hyponatremia -monitor 4. History of anxiety and depression -cont Rx 5. HTN -cont home Rx PPx- SCD's Problems: Subjective 24 Hr Interval Summary Constitutional: no complaints Exam/Review of Systems Vital Signs Vitals Vital Signs Date Time Temp Pulse Resp B/P Pulse Ox O2 Delivery O2 Flow Rate FiO2 12/15/16 07:24 97.4 82 16 140/73 97 12/15/16 06:00 Room Air 12/14/16 02:30 2.0 Intake and Output 12/14/16 12/14/16 12/15/16 15:00 23:00 07:00 Intake Total 400 ml 920 ml 1150 ml Output Total 950 ml 2300 ml Balance 400 ml -30 ml -1150 ml Exam Constitutional: alert, oriented Respiratory: clear to auscultation Cardiovascular: regular rate and rhythm Gastrointestinal: soft, No distended Musculoskeletal: nl extremities to inspection Results Result Diagram: 12/15/168 12/15/16 0428 Results 24 hrs Laboratory Tests Test 12/15/16 04:28 White Blood Count 5.7 Red Blood Count 3.27 L Hemoglobin 10.4 L Hematocrit 30.7 L Mean Corpuscular Volume 93.9 Mean Corpuscular Hemoglobin 31.8 Mean Corpuscular Hemoglobin Concent 33.9 Red Cell Distribution Width 12.5 Platelet Count 228 Mean Platelet Volume 9.6 Neutrophils % 63.7 Lymphocytes % 22.5 Monocytes % 12.7 H Eosinophils % 0.5 Basophils % 0.2 Nucleated Red Blood Cells % 0.0 Neutrophils # 3.6 Lymphocytes # 1.3 Monocytes # 0.7 Eosinophils # 0.0 Basophils # 0.0 Nucleated Red Blood Cells # 0.0 Sodium Level 133 L Potassium Level 4.2 Chloride Level 100 Carbon Dioxide Level 27 Anion Gap 10 Blood Urea Nitrogen 7 Creatinine 0.86 Glucose Level 131 Calcium Level 9.0 Medications Medications Current Medications Hydralazine HCl (Apresoline) 10 mg Q4H PRN IV ELEVATED SYSTOLIC BP Last administered on 12/15/16 05:15; Admin Dose 10 MG; Start 12/11/16 at 04:00 Hydromorphone HCl (Dilaudid) 1 mg Q4H PRN IV PAIN Last administered on 16:21; Admin Dose 1 MG; Start 12/11/16 at 06:00 Citalopram Hydrobromide (Celexa) 40 mg DAILY PO Last administered on 12/15/16 09:31; Admin Dose 40 MG; Start 12/11/16 at 14:30 Mometasone Furoate (Asmanex) 1 puff BID INH Last administered on 12/15/16 09: 31; Admin Dose 1 PUFF; Start 12/11/16 at 21:00 Lorazepam (Ativan) 1 mg Q4H PRN IV ANXIETY Last administered on 12/15/16 13:36 ; Admin Dose 1 MG; Start 12/11/16 at 21:00 Lisinopril (Zestril) 40 mg DAILY PO Last administered on 12/15/16 09:32; Admin Dose 40 MG; Start 12/13/16 at 09:00 Morphine Sulfate (morphine) 2 mg Q2H PRN IV PAIN LEVEL 6-10; Start 12/13/16 at 21:30 Acetaminophen (Tylenol Tab) 650 mg Q6H PRN PO PAIN AND OR ELEVATED TEMP; Start 12/13/16 at 21:30 Ondansetron HCl (Zofran Inj) 4 mg Q6H PRN IV NAUSEA AND/OR VOMITING; Start at 21:30 Pantoprazole 40 mg 40 mg DAILY@06 IV Last administered on 12/15/16 05:14; Admin Dose 40 MG; Start 12/14/16 at 06:00 Potassium Chloride/Dextrose/ Sod Cl (D5-1/2ns + KCl 20 Meq) 1,000 ml @ 100 mls/ hr Q10H IV Last administered on 12/15/16 15:44; Admin Dose 100 MLS/HR; Start 12/13/16 at 21:27 Enoxaparin Sodium (Lovenox) 40 mg DAILY@07 SC Last administered on 12/15/16 07 :12; Admin Dose 40 MG; Start 12/14/16 at 07:00 ALEJANDRO DONALDSON Dec 15, 2016 17:00
[2016-12-15 20:02] VITALS: BP 131/72; RESP 19
[2016-12-16] MEDS: D5W-0.45 NACL + KCL 20 MEQ 1,000 ML IV SCH ×3 (02:34→23:40)
[2016-12-16] MEDS: HYDROmorphONE 1 MG/ML SYG IV PRN ×5 (03:42→23:33)
[2016-12-16 05:44] LABS: ADD SCAN DIFF NO
[2016-12-16 06:04] LABS: BASOPHILS % 0.2 % (0.0-2.0); EOSINOPHILS # 0.2 10^3/ul (0.0-0.5); EOSINOPHILS % 2.7 % (0.0-7.0); HEMATOCRIT 28.7 % (42.0-52.0); HEMOGLOBIN 10.1 g/dl (14.0-18.0); LYMPHOCYTES # 1.5 10^3/ul (0.8-2.9); LYMPHOCYTES % 27.2 % (15.0-51.0); MEAN CORPUSCULAR HEMOGLOBIN 32.8 pg (29.0-33.0); MEAN CORPUSCULAR HGB CONC 35.2 g/dl (32.0-37.0); MEAN CORPUSCULAR VOLUME 93.2 fl (82.0-101.0); MEAN PLATELET VOLUME 9.5 fl (7.4-10.4); MONOCYTE # 0.6 10^3/ul (0.3-0.9); MONOCYTES % 10.6 % (0.0-11.0); NEUTROPHIL # 3.3 10^3/ul (1.6-7.5); NEUTROPHILS % 59.1 % (39.0-77.0); PLATELET COUNT 241 10^3/UL (140-415); RED BLOOD COUNT 3.08 10^6/ul (4.70-6.10); RED CELL DISTRIBUTION WIDTH 12.4 % (11.5-14.5); WHITE BLOOD COUNT 5.6 10^3/ul (4.8-10.8)
[2016-12-16 06:13] LABS: CALCIUM 8.8 mg/dl (8.4-10.2); CREATININE 0.75 mg/dl (0.61-1.24); POTASSIUM 3.8 mmol/L (3.5-5.1)
[2016-12-16] MEDS: PANTOPRAZOLE 40 MG INJ IV SCH (06:14)
[2016-12-16] MEDS: ENOXAPARIN 40 MG/0.4 ML SYG SC SCH (06:17)
[2016-12-16] MEDS: LORAZEPAM 2 MG INJ IV PRN ×2 (07:10→21:01)
[2016-12-16 08:52] VITALS: BP 143/82; RESP 18
[2016-12-16] MEDS: LISINOPRIL 20 MG TAB PO SCH (09:42)
[2016-12-16] MEDS: MOMETASONE 0.24 GM INHALER INH SCH ×2 (09:42→20:53)
[2016-12-16] MEDS: CITALOPRAM 20 MG TAB PO SCH (09:42)
--- NOTE | 2016-12-16 15:29 | PN ---
DATE: 12/16/2016 SUBJECTIVE: Mr. El is postop day 3 from a small bowel resection. The patient is without complai nt. He has not had a bowel movement or passed flatus. OBJECTIVE: VITAL SIGNS: He is afebrile. Vital signs stable. ABDOMEN: Soft, nontender, nondistended. His wound is clean, dry with possibly some erythema ____. LABORATORY DATA: Today reveal white count of 6, hematocrit of 29, and platelets of 241. ASSESSMENT AND PLAN: Mr. El is a 61-year-old male with an ileus status post small bowel resectio n. 1. Await resolution of ileus. 2. N.p.o. ____ until bowel movement or flatus. 3. Continue current care. Dictated By: LIANG GEE MD MAL/NTS Conf#: [id number] DID#: [id number] CC: JEFFERSON LANIER MD;*EndCC*
--- NOTE | 2016-12-16 17:26 | PN ---
Date/Time of Note Date/Time of Note DATE: 12/16/16 TIME: 17:24 Assessment/Plan VTE Prophylaxis VTE Prophylaxis Intervention: SCD's Lines/Catheters IV [facility] Type [facility]from [facility] Peripheral IV Urinary Cath still in place: No Assessment/Plan Chief Complaint/Hosp Course 1. Small bowel obstruction with abdominal pain 2/2 mass-possibly lymphoma -F/U on path -s/p small bowel resection -N.p.o. for now, advance diet per surgery 2. COPD-stable 3. Hyponatremia -monitor 4. History of anxiety and depression -cont Rx 5. HTN -cont home Rx PPx- SCD's Problems: Subjective 24 Hr Interval Summary Constitutional: no complaints Exam/Review of Systems Vital Signs Vitals Vital Signs Date Time Temp Pulse Resp B/P Pulse Ox O2 Delivery O2 Flow Rate FiO2 12/16/16 08:52 98.8 89 18 143/82 95 12/15/16 06:00 Room Air 12/14/16 02:30 2.0 Intake and Output 12/15/16 12/15/16 12/16/16 15:00 23:00 07:00 Intake Total 1000 ml 1050 ml Output Total 800 ml Balance 1000 ml 250 ml Exam Constitutional: alert Respiratory: clear to auscultation Cardiovascular: regular rate and rhythm Gastrointestinal: soft, No distended Musculoskeletal: nl extremities to inspection Results Result Diagram: 12/16/16 0430 12/16/16 0430 Results 24 hrs Laboratory Tests Test 12/16/16 04:30 White Blood Count 5.6 Red Blood Count 3.08 L Hemoglobin 10.1 L Hematocrit 28.7 L Mean Corpuscular Volume 93.2 Mean Corpuscular Hemoglobin 32.8 Mean Corpuscular Hemoglobin Concent 35.2 Red Cell Distribution Width 12.4 Platelet Count 241 Mean Platelet Volume 9.5 Neutrophils % 59.1 Lymphocytes % 27.2 Monocytes % 10.6 Eosinophils % 2.7 Basophils % 0.2 Nucleated Red Blood Cells % 0.0 Neutrophils # 3.3 Lymphocytes # 1.5 Monocytes # 0.6 Eosinophils # 0.2 Basophils # 0.0 Nucleated Red Blood Cells # 0.0 Sodium Level 133 L Potassium Level 3.8 Chloride Level 102 Carbon Dioxide Level 25 Anion Gap 10 Blood Urea Nitrogen 4 L Creatinine 0.75 Glucose Level 114 Calcium Level 8.8 Medications Medications Current Medications Hydralazine HCl (Apresoline) 10 mg Q4H PRN IV ELEVATED SYSTOLIC BP Last administered on 12/15/16 05:15; Admin Dose 10 MG; Start 12/11/16 at 04:00 Hydromorphone HCl (Dilaudid) 1 mg Q4H PRN IV PAIN Last administered on 13:53; Admin Dose 1 MG; Start 12/11/16 at 06:00 Citalopram Hydrobromide (Celexa) 40 mg DAILY PO Last administered on 12/16/16 09:42; Admin Dose 40 MG; Start 12/11/16 at 14:30 Mometasone Furoate (Asmanex) 1 puff BID INH Last administered on 12/16/16 09: 42; Admin Dose 1 PUFF; Start 12/11/16 at 21:00 Lorazepam (Ativan) 1 mg Q4H PRN IV ANXIETY Last administered on 12/16/16 07:10 ; Admin Dose 1 MG; Start 12/11/16 at 21:00 Lisinopril (Zestril) 40 mg DAILY PO Last administered on 12/16/16 09:42; Admin Dose 40 MG; Start 12/13/16 at 09:00 Morphine Sulfate (morphine) 2 mg Q2H PRN IV PAIN LEVEL 6-10; Start 12/13/16 at 21:30 Acetaminophen (Tylenol Tab) 650 mg Q6H PRN PO PAIN AND OR ELEVATED TEMP; Start 12/13/16 at 21:30 Ondansetron HCl (Zofran Inj) 4 mg Q6H PRN IV NAUSEA AND/OR VOMITING; Start at 21:30 Pantoprazole 40 mg 40 mg DAILY@06 IV Last administered on 12/16/16 06:14; Admin Dose 40 MG; Start 12/14/16 at 06:00 Potassium Chloride/Dextrose/ Sod Cl (D5-1/2ns + KCl 20 Meq) 1,000 ml @ 100 mls/ hr Q10H IV Last administered on 12/16/16 13:10; Admin Dose 100 MLS/HR; Start 12/13/16 at 21:27 Enoxaparin Sodium (Lovenox) 40 mg DAILY@07 SC Last administered on 12/16/16 06 :17; Admin Dose 40 MG; Start 12/14/16 at 07:00 ALEJANDRO DONALDSON Dec 16, 2016 17:26
[2016-12-16 19:42] VITALS: BP 158/88; RESP 18
[2016-12-16 22:15] VITALS: BP 142/70
[2016-12-17] MEDS: HYDROmorphONE 1 MG/ML SYG IV PRN ×4 (04:48→20:44)
[2016-12-17 05:27] LABS: ADD SCAN DIFF NO
[2016-12-17] MEDS: D5W-0.45 NACL + KCL 20 MEQ 1,000 ML IV SCH ×3 (05:27→20:45)
[2016-12-17 05:35] LABS: BASOPHILS % 0.2 % (0.0-2.0); EOSINOPHILS # 0.2 10^3/ul (0.0-0.5); EOSINOPHILS % 3.5 % (0.0-7.0); HEMATOCRIT 34.2 % (42.0-52.0); HEMOGLOBIN 11.4 g/dl (14.0-18.0); LYMPHOCYTES # 1.5 10^3/ul (0.8-2.9); LYMPHOCYTES % 24.8 % (15.0-51.0); MEAN CORPUSCULAR HEMOGLOBIN 31.1 pg (29.0-33.0); MEAN CORPUSCULAR HGB CONC 33.3 g/dl (32.0-37.0); MEAN CORPUSCULAR VOLUME 93.2 fl (82.0-101.0); MEAN PLATELET VOLUME 9.6 fl (7.4-10.4); MONOCYTE # 0.6 10^3/ul (0.3-0.9); MONOCYTES % 10.5 % (0.0-11.0); NEUTROPHIL # 3.7 10^3/ul (1.6-7.5); NEUTROPHILS % 60.7 % (39.0-77.0); PLATELET COUNT 263 10^3/UL (140-415); RED BLOOD COUNT 3.67 10^6/ul (4.70-6.10); RED CELL DISTRIBUTION WIDTH 12.3 % (11.5-14.5); WHITE BLOOD COUNT 6.1 10^3/ul (4.8-10.8)
[2016-12-17 06:09] LABS: CALCIUM 9.1 mg/dl (8.4-10.2); CREATININE 0.82 mg/dl (0.61-1.24); MAGNESIUM 1.9 mg/dl (1.7-2.5)
[2016-12-17] MEDS: PANTOPRAZOLE 40 MG INJ IV SCH (06:26)
[2016-12-17] MEDS: ENOXAPARIN 40 MG/0.4 ML SYG SC SCH (06:29)
[2016-12-17 08:09] VITALS: BP 172/92; RESP 20
[2016-12-17 08:27] VITALS: BP 157/90
[2016-12-17] MEDS: CITALOPRAM 20 MG TAB PO SCH (09:08)
[2016-12-17] MEDS: MOMETASONE 0.24 GM INHALER INH SCH ×2 (09:09→22:24)
[2016-12-17] MEDS: LISINOPRIL 20 MG TAB PO SCH (09:09)
--- NOTE | 2016-12-17 12:25 | PN ---
DATE: 12/17/2016 SUBJECTIVE: Mr. El is now postop day 4 from a small bowel resection. The patient is without com plaints. He is hungry. OBJECTIVE: VITAL SIGNS: He is afebrile. Vital signs stable. ABDOMEN: Soft, nontender, nondistended. The wound has some slight erythema. I did open it and dustin ce 1-inch gauze in between my interrupted sutures. LABORATORY DATA: Reveal a white count of 6, hematocrit of 34 and platelets of 263. The path is pen ding. ASSESSMENT AND PLAN: Mr. El is a 61-year-old male status post a small bowel resection for ileal mass. 1. Clears. 2. Oral pain medicine. 3. Continue wound packing. 4. Possibly discharge tomorrow. Dictated By: LIANG SIMMONS/NUZHAT Conf#: [id number] DID#: [id number]
[2016-12-17] MEDS: LORAZEPAM 2 MG INJ IV PRN (18:17)
[2016-12-17] MEDS ORDERED: predniSONE 20 MG TAB PO ONE ×2 (18:30→19:00)
--- NOTE | 2016-12-17 18:53 | PN ---
DATE: 12/17/2016 SUBJECTIVE: Chart reviewed. Surgical followup noted. The patient has been started on clear liquid diet. PHYSICAL EXAMINATION: VITAL SIGNS: Blood pressure 157/90, pulse 79, respirations 20, temperature 97.4. HEENT: Pupils are equal and reactive to light. NECK: Supple. No JVD noted. No cervical adenopathy. No carotid bruits heard. LUNGS: Fair breath sounds bilaterally. CARDIOVASCULAR: S1, S2 normal. ABDOMEN: Soft. Postop positive bowel sounds. EXTREMITIES: No clubbing, cyanosis, or edema noted. NEUROLOGICAL: Awake and alert. LABORATORY DATA: WBC 6.1, hemoglobin 11.4, hematocrit 34.2, platelets 263. Sodium 133, potassium 4 .0, chloride 99, CO2 of 29, BUN 4, creatinine 0.82, glucose 129. IMPRESSION: 1. Status post small bowel resection, a mass, possibly lymphoma, was identified; however, pathology is still pending. 2. History of chronic obstructive pulmonary disease. 3. History of anxiety and depression. 4. Hypertension, slightly elevated. RECOMMENDATIONS: 1. Surgical followup noted. 2. The patient has been switched to oral pain meds. 3. Diet has been started. 4. Monitor blood pressure and adjust medications accordingly. 5. Discharge when cleared by Dr. Copeland. 6. Check pathology report. Dictated By: MARCOS WU MD, MA/NUZHAT Conf#: [id number] DID#: [id number] CC: JEFFERSON LANIER MD;*End*
[2016-12-17] MEDS ORDERED: BISACODYL 10 MG SUPP PR ONE (19:30)
[2016-12-17 20:39] VITALS: BP 161/86; RESP 77
--- NOTE | 2016-12-17 22:05 | PN ---
DATE: SUBJECTIVE: The patient is alert. He is tolerating the clear liquids, status post exploratory lapa rotomy, resection of the small bowel. The pathology came back as a stricture into the distal small bowel consistent with Crohn disease. At this time, patient says he has not been passing gas. No bowel movement, but is tolerating the li quid diet. PHYSICAL EXAMINATION: ABDOMEN: Soft. LABORATORY WORKUP: Shows WBC count 6100, hemoglobin 11.4. The chemistry: Potassium is 4.0. CLINICAL IMPRESSION: 1. Status post small bowel resection. 2. Possible Crohn disease. PLAN: The patient does not have any BMS. I recommended Dulcolax suppositories. I also recommend prednisone 40 mg q.a.m. Dictated By: HARRIS ARIAS/NUZHAT Conf#: [id number] DID#: [id number] CC: HARRIS DWYER MD; JEFFERSON LANIER MD;*End*
[2016-12-18] MEDS: HYDROmorphONE 1 MG/ML SYG IV PRN ×3 (01:06→11:52)
[2016-12-18] MEDS: D5W-0.45 NACL + KCL 20 MEQ 1,000 ML IV SCH ×2 (06:06→16:18)
[2016-12-18] MEDS: ENOXAPARIN 40 MG/0.4 ML SYG SC SCH (06:07)
[2016-12-18] MEDS: PANTOPRAZOLE 40 MG INJ IV SCH (06:08)
[2016-12-18 07:48] VITALS: BP 146/80; RESP 18
[2016-12-18] MEDS: CITALOPRAM 20 MG TAB PO SCH (08:27)
[2016-12-18] MEDS: predniSONE 20 MG TAB PO SCH (08:27)
[2016-12-18] MEDS: LISINOPRIL 20 MG TAB PO SCH (08:28)
[2016-12-18] MEDS: MOMETASONE 0.24 GM INHALER INH SCH ×2 (08:29→21:00)
[2016-12-18] MEDS: OXYCODONE/ACETAMINOPHEN (5/325) TAB PO PRN ×2 (08:33→18:32)
[2016-12-18] MEDS ORDERED: BISACODYL 10 MG SUPP PR ONE (09:00)
--- NOTE | 2016-12-18 13:56 | PN ---
Date/Time of Note Date/Time of Note DATE: 12/18/16 TIME: 13:48 Assessment/Plan VTE Prophylaxis VTE Prophylaxis Intervention: SCD's Lines/Catheters IV Catheter Type (from Nrs): Peripheral IV Urinary Cath still in place: No Assessment/Plan Assessment/Plan 1. Small bowel obstruction, s/p SB resection, possible Crohn's disease, good bowel sounds but not passing flatus, [facility] 2. COPD-stable 3. Hyponatremia 4. History of anxiety and depression 5. HTN, stbale PPx- SCD's Subjective 24 Hr Interval Summary Free Text/Dictation no flatus, no BM Exam/Review of Systems Vital Signs Vitals Vital Signs Date Time Temp Pulse Resp B/P Pulse Ox O2 Delivery O2 Flow Rate FiO2 12/18/16 07:48 98.5 76 18 146/80 97 12/15/16 06:00 Room Air Intake and Output 12/17/16 12/17/16 12/18/16 15:00 23:00 07:00 Intake Total 500 ml 850 ml 1870 ml Balance 500 ml 850 ml 1870 ml Exam Constitutional: alert, oriented, well developed Psych: nl mood/affect, no complaints Head: atraumatic, normocephalic Eyes: EOMI, nl conjunctiva, nl lids ENMT: nl external ears & nose, nl lips & teeth, nl nasal mucosa & septum Neck: non-tender, supple Respiratory: clear to auscultation, normal air movement, No congested cough, No crackles/rales, No diminished breath sounds, No intercostal retraction, No labored breathing, No other, No respirations, No tactile fremitus, No wheezing Cardiovascular: nl pulses, regular rate and rhythm, No S3, No S4, No bruits, No diastolic murmur, No edema, No gallop, No irregular rhythm, No jugular venous distention (JVD), No murmurs/extra sounds, No other, No rub, No systolic murmur Gastrointestinal: bowel sounds, distended Musculoskeletal: nl extremities to inspection Extremities: normal pulses, No calf tenderness, No clubbing, No cyanosis, No edema, No other, No palpable cord, No pitting pedal edema, No tenderness Neurological: [employer] II-XII intact, nl mental status, nl speech, nl strength Skin: nl turgor Lymph: nl lymph nodes Results Result Diagram: 12/17/16 0435 12/17/16 0435 Medications Medications Current Medications Hydralazine HCl (Apresoline) 10 mg Q4H PRN IV ELEVATED SYSTOLIC BP Last administered on 12/15/16 05:15; Admin Dose 10 MG; Start 12/11/16 at 04:00 Hydromorphone HCl (Dilaudid) 1 mg Q4H PRN IV PAIN Last administered on 11:52; Admin Dose 1 MG; Start 12/11/16 at 06:00 Citalopram Hydrobromide (Celexa) 40 mg DAILY PO Last administered on 12/18/16 08:27; Admin Dose 40 MG; Start 12/11/16 at 14:30 Mometasone Furoate (Asmanex) 1 puff BID INH Last administered on 12/18/16 08:29 ; Admin Dose 1 PUFF; Start 12/11/16 at 21:00 Lorazepam (Ativan) 1 mg Q4H PRN IV ANXIETY Last administered on 12/17/16 18:17 ; Admin Dose 1 MG; Start 12/11/16 at 21:00 Lisinopril (Zestril) 40 mg DAILY PO Last administered on 12/18/16 08:28; Admin Dose 40 MG; Start 12/13/16 at 09:00 Morphine Sulfate (morphine) 2 mg Q2H PRN IV PAIN LEVEL 6-10; Start 12/13/16 at 21:30 Acetaminophen (Tylenol Tab) 650 mg Q6H PRN PO PAIN AND OR ELEVATED TEMP; Start 12/13/16 at 21:30 Ondansetron HCl (Zofran Inj) 4 mg Q6H PRN IV NAUSEA AND/OR VOMITING; Start at 21:30 Pantoprazole 40 mg 40 mg DAILY@06 IV Last administered on 12/18/16 06:08; Admin Dose 40 MG; Start 12/14/16 at 06:00 Potassium Chloride/Dextrose/ Sod Cl (D5-1/2ns + KCl 20 Meq) 1,000 ml @ 100 mls/ hr Q10H IV Last administered on 12/18/16 06:06; Admin Dose 100 MLS/HR; Start at 21:27 Enoxaparin Sodium (Lovenox) 40 mg DAILY@07 SC Last administered on 12/18/16 06: 07; Admin Dose 40 MG; Start 12/14/16 at 07:00 Oxycodone/ Acetaminophen (Percocet (5/ 325)) 2 tab Q4H PRN PO PAIN Last administered on 12/18/16 08:33; Admin Dose 2 TAB; Start 12/17/16 at 10:30 Prednisone (Prednisone) 40 mg DAILY PO Last administered on 12/18/16 08:27; Admin Dose 40 MG; Start 12/18/16 at 09:00 MARIANA ELY MD December 18, 2016 13:56
--- NOTE | 2016-12-18 16:10 | RADRPT ---
PROCEDURE: XR Abdomen. CLINICAL INDICATION: Abdomen pain. TECHNIQUE: AP supine abdomen x-ray. COMPARISON: Small bowel follow-through dated 12/12/2016. FINDINGS: A small amount of contrast remains in the left side of the colon. There is mildly dilated small bow el and proximal colon which may indicate partial obstruction. The bowel gas pattern is otherwise normal. There are no abnormal calcifications overlying the urinary tracts. There are degenerative changes of the spine. IMPRESSION: 1. Mildly dilated small bowel and proximal colon which may indicate partial obstruction. 2. Only minimal gastrointestinal contrast remains in the left side of the colon. RPTAT: QQ .Mando Edge MD, MD Date Time Electronically viewed and signed by .Mando Edge MD, on 12/18/2016 16:10 .R/
--- NOTE | 2016-12-18 16:21 | PN ---
DATE: 12/17/2016 SUBJECTIVE: Mr. El is now postop day 5 from a small bowel resection. The patient is without com plaints. He has minimal abdominal pain. He is tolerating clears, but has not had a bowel movement or passed flatus. OBJECTIVE: VITAL SIGNS: He is afebrile. Vital signs stable. ABDOMEN: Soft, mildly distended but nontender. His wound shows decreased erythema and induration w ith packing in place. ASSESSMENT AND PLAN: Mr. El is a 61-year-old male, status post small bowel resection. 1. Pathology came back which is likely Crohn's disease. Further treatment per Dr. Santo. 2. Continue clears until has bowel movement or passes flatus. 3. Do not recommend any suppositories or other bowel motility agents until bowel movement. Dictated By: LIANG SIMMONS/NTS Conf#: [id number] DID#: [id number]
[2016-12-18 20:19] VITALS: BP 155/74; PULSE 74; RESP 18
[2016-12-19] MEDS: HYDROmorphONE 1 MG/ML SYG IV PRN (04:29)
[2016-12-19] MEDS: PANTOPRAZOLE 40 MG INJ IV SCH (04:29)
[2016-12-19 05:09] LABS: ADD SCAN DIFF NO
[2016-12-19 05:21] LABS: POTASSIUM 4.1 mmol/L (3.5-5.1)
[2016-12-19 05:23] LABS: CREATININE 0.83 mg/dl (0.61-1.24)
[2016-12-19 05:24] LABS: BASOPHILS % 0.2 % (0.0-2.0); CALCIUM 9.2 mg/dl (8.4-10.2); EOSINOPHILS # 0.2 10^3/ul (0.0-0.5); EOSINOPHILS % 2.3 % (0.0-7.0); HEMATOCRIT 29.3 % (42.0-52.0); HEMOGLOBIN 9.9 g/dl (14.0-18.0); LYMPHOCYTES # 2.6 10^3/ul (0.8-2.9); LYMPHOCYTES % 26.6 % (15.0-51.0); MEAN CORPUSCULAR HEMOGLOBIN 31.5 pg (29.0-33.0); MEAN CORPUSCULAR HGB CONC 33.8 g/dl (32.0-37.0); MEAN CORPUSCULAR VOLUME 93.3 fl (82.0-101.0); MEAN PLATELET VOLUME 9.7 fl (7.4-10.4); MONOCYTE # 0.7 10^3/ul (0.3-0.9); MONOCYTES % 7.5 % (0.0-11.0); NEUTROPHIL # 6.1 10^3/ul (1.6-7.5); NEUTROPHILS % 63.2 % (39.0-77.0); PLATELET COUNT 279 10^3/UL (140-415); RED BLOOD COUNT 3.14 10^6/ul (4.70-6.10); RED CELL DISTRIBUTION WIDTH 12.2 % (11.5-14.5); WHITE BLOOD COUNT 9.7 10^3/ul (4.8-10.8)
[2016-12-19 08:04] VITALS: BP 152/87; RESP 0
[2016-12-19] MEDS: CITALOPRAM 20 MG TAB PO SCH (08:22)
[2016-12-19] MEDS: predniSONE 20 MG TAB PO SCH (08:22)
[2016-12-19] MEDS: LISINOPRIL 20 MG TAB PO SCH (08:28)
[2016-12-19] MEDS: OXYCODONE/ACETAMINOPHEN (5/325) TAB PO PRN (08:28)
[2016-12-19] MEDS: D5W-0.45 NACL + KCL 20 MEQ 1,000 ML IV SCH (08:30)
[2016-12-19] MEDS: MOMETASONE 0.24 GM INHALER INH SCH (08:30)
[2016-12-19] MEDS: ENOXAPARIN 40 MG/0.4 ML SYG SC SCH (08:31)
[2016-12-19] MEDS ORDERED: Oxycodone/Acetamin (5/325) PO (13:05)
[2016-12-19] MEDS ORDERED: PRED20TA PO (13:05)
--- NOTE | 2016-12-19 13:15 | DS ---
Date/Time of Note Date/Time of Note DATE: 12/19/16 TIME: 13:09 Discharge Summary Admission/Discharge Info Admit Date/Time Dec 11, 2016 at 01:29 Discharge Date/Time Final Diagnosis 1. Small bowel obstruction, s/p SB resection, stable, follow up with Dr. Copeland 2. possible Crohn's disease, on prednisone, follow up with Dr. Santo 2. COPD-stable 3. Hyponatremia 4. History of anxiety and depression 5. HTN, stbale Patient Condition: Stable Procedures 1. Diagnostic laparoscopy. 2. Ex lap and Small-bowel resection. Hx of Present Illness The patient is a 61-year-old male with history of COPD, GERD, hypertension, diabetes, anxiety, and depression, appendectomy and SBO who presented with abdominal pain. He was just diacharged here from [facility] 2 weeks ago after he was transferred from outside hospital with diagnosis of small bowel obstruction. The patient was seen by surgery. It was felt that the small bowel obstruction was due to infection or inflammation. Conservative management was recommended. The patient was on IV antibiotics as well as steroids. The patient was seen by GI and ultimately did have a colonoscopy that showed a normal colon, normal appearing terminal ileum. The patient's bowel obstruction did resolve and was discharged in stable condition. Today here in ER, CT a/p showed Small bowel obstruction with a transition point in the left nandini pelvis. Hospital Course Patient had small bowel resection on 12/13/2016. Pathology back with possible Crohn's disease. Dr. Santo, GI, starts him on prednosine 40 mg po daily. He will follow up with Dr. Santo for further treatment. After surgery patient had post op ileus that resolved. Patient tolerates diet. He will follow up with Dr. Copeland in one week. Home Meds Active Scripts [Oxycodone/Acetamin (5)] 1 TAB TAB No Conflict Check, 2 TAB PO Q4H Y for PAIN, #30 Prov:MARIANA ELY MD 12/19/16 Prednisone* (Prednisone*) 20 Mg Tab, 40 MG PO DAILY for 20 Days, TAB Prov:MARIANA ELY MD 12/19/16 Reported Medications Gabapentin* (Gabapentin*) 300 Mg Capsule, 600 MG PO TID, #180 CAP 12/10/16 Beclomethasone Dip* (Qvar 80*) 7.3 Gm Inha, 2 PUFF INH BID, #1 INHALER 11/19/16 Dicyclomine Hcl* (Bentyl*) 10 Mg Capsule, 20 MG PO BID, CAP 11/19/16 Metoclopramide Hcl* (Metoclopramide Hcl*) 5 Mg Tablet, 5 MG PO Q6H Y for NAUSEA AND OR VOMITING, TAB 11/19/16 Methocarbamol* (Methocarbamol*) 500 Mg Tablet, 500 MG PO Q8, TAB 11/19/16 Albuterol/Ipratropium* (Combivent Respimat*) 20-100 Mcg/Inh - 4 Gm Aer.w.adap, 2 PUFF INHALATION DAILY, #1 INHALER 11/19/16 Omeprazole* (Omeprazole*) 20 Mg Capsule.dr, 20 MG PO DAILY, #30 CAP 11/02/16 Lisinopril* (Lisinopril*) 40 Mg Tablet, 40 MG PO DAILY, #30 TAB 11/02/16 Loratadine* (Claritin*) 10 Mg Capsule, 10 MG PO DAILY, CAP 11/02/16 Citalopram Hydrobromide* (Citalopram Hydrobromide*) 40 Mg Tablet, 40 MG PO DAILY , #30 TAB 11/02/16 Aspirin* (Aspirin* Chew) 81 Mg Tab.chew, 81 MG PO DAILY, TAB.CHEW 11/02/16 Follow-up Plan Follow up with PCP in one week Dr. Santo in one week Dr. Copeland on one week Pending Labs Laboratory Tests Test 12/19/16 04:20 White Blood Count 9.710^3/ul (4.8-10.8) Red Blood Count 3.1410^6/ul (4.70-6.10) Hemoglobin 9.9g/dl (14.0-18.0) Hematocrit 29.3% (42.0-52.0) Mean Corpuscular Volume 93.3fl (82.0-101.0) Mean Corpuscular Hemoglobin 31.5pg (29.0-33.0) Mean Corpuscular Hemoglobin Concent 33.8g/dl (32.0-37.0) Red Cell Distribution Width 12.2% (11.5-14.5) Platelet Count 10667^3/UL (140-415) Mean Platelet Volume 9.7fl (7.4-10.4) Neutrophils % 63.2% (39.0-77.0) Lymphocytes % 26.6% (15.0-51.0) Monocytes % 7.5% (0.0-11.0) Eosinophils % 2.3% (0.0-7.0) Basophils % 0.2% (0.0-2.0) Nucleated Red Blood Cells % 0.0/100WBC (0.0-0.0) Neutrophils # 6.110^3/ul (1.6-7.5) Lymphocytes # 2.610^3/ul (0.8-2.9) Monocytes # 0.710^3/ul (0.3-0.9) Eosinophils # 0.210^3/ul (0.0-0.5) Basophils # 0.010^3/ul (0.0-0.1) Nucleated Red Blood Cells # 0.010^3/ul (0.0-0.0) Sodium Level 139mmol/L (135-144) Potassium Level 4.1mmol/L (3.5-5.1) Chloride Level 100mmol/L (97-110) Carbon Dioxide Level 29mmol/L (21-31) Anion Gap 14 (8-16) Blood Urea Nitrogen 6mg/dl (7-20) Creatinine 0.83mg/dl (0.61-1.24) Glucose Level 110mg/dl (70-220) Calcium Level 9.2mg/dl (8.4-10.2) MARIANA ELY MD December 19, 2016 13:15
== END 2016-12-19 15:35 | disposition home or self-care (01) | DRG 330 ==
LOC: E/R 20:09 → MS2 12-11 01:29 → MS1 12-13 23:49
PROVIDERS: ADMIT Internal Medicine; ATTEND Internal Medicine
PROC: 0WJG4ZZ Inspection of Peritoneal Cavity, Percutaneous Endoscopic Approach (ICD-10-PCS; 2016-12-13)
PROC: 0DBB0ZZ Excision of Ileum, Open Approach (ICD-10-PCS; principal; 2016-12-13 17:40)
DX: K50.012 Crohn's disease of small intestine with intestinal obstruction (principal); E87.1 Hypo-osmolality and hyponatremia; I10 Essential (primary) hypertension; K56.7 Ileus, unspecified; J44.9 Chronic obstructive pulmonary disease, unspecified; K21.9 Gastro-esophageal reflux disease without esophagitis; F41.9 Anxiety disorder, unspecified; F32.9 Major depressive disorder, single episode, unspecified; E11.9 Type 2 diabetes mellitus without complications
CPT/HCPCS: 71010; 74000; 74176; 74250; 80048; 80053; 82150; 83690; 83735; 84100; 84484; 85025; 85610; 85730; 86850; 86900; 86901; 88305; 93005; 96374; 96375; 96376; C9113; J0360; J0690; J1100; J1170; J1650; J1885; J2060; J2250; J2270; J2274; J2405; J2710; J3010; J3480; J7030; J7042; J7512; P9045

== ENCOUNTER 2016-12-25 15:34 | Outpatient (CLI) | payer OTHER ==
[~2016-12-25] VITALS: Ht 177.8 cm; Wt 69.3 kg
[~2016-12-25 15:34] MED LIST changes: -2 INHALERS INH; +GABA300C16 PO; -GABAPENTIN PO; +Oxycodone/Acetamin (5/325) PO; +PRED20TA PO
[2016-12-25 15:43] VITALS: BP 183/81; PULSE 120; RESP 18; Ht 177.8 cm; Wt 69.3 kg
--- NOTE | 2016-12-25 16:01 | PN ---
Date/Time of Note Date/Time of Note DATE: 12/25/16 TIME: 15:56 Outpatient Progress Note Chief Complaint Small bowel obstruction/hypertension/COPD/PUD/ HPI Small bowel obstruction/patient has small bowel obstruction, patient had recent surgery, no fever chill no abdominal distention, no cramps, no diarrhea, regular BM, Hypertension, patient has slightly elevated blood pressure, denies any headache or dizziness, COPD/no cough expectoration or hemoptysis or wheezing, PUD/no nausea or vomiting, no hematemesis or melena,, Review of Systems Const: No Fever, no chills, no Wt. loss, no Fatigue, normal appetite, no diaphoresis. Eyes: No pain, no discharge, no redness, no visual change, no foreign body. ENT: No pain, no bleeding, no congestion, no sore throat, no dysphagia, no discharge or rhinitis. Lymph: No adenopathy, no tender nodes, no lymphedema. Resp: No SOB, no cough, no sputum, no wheezing, no chest pain. CV: No chest pain, no palpitaions, no GARCIA, no PND, no edema. GI: Normal appetite, no pain, no nausea, no vomiting, no diarrhea, no blood, no constipation. Scar of recent surgery, slight redness around the incision, minimal discomfort, no bleeding or discharge, : No frequency, no urgency, no dysuria, no hematuria, no flank pain, no discharge, no bleeding. Musc: No bone/joint pain, no back pain, no neck pain, no knee pain, no restricted ROM. Skin: No rash, no skin lesions, no erythema, no laceration, no bruising, no pruritus. Neuro: No BIANCHI, no dizziness, no syncope, no seizure, no focal-weakness. Endo: No polyuria, no polydypsia, no dry-skin, no temp-intolerance. Psych: No hallucinations, no depression, no anxiety, no suicidal ideation. Ext: No edema, no pain, no ulcer, no weakness. Physical Exam Vital Signs Date Time Temp Pulse Resp B/P Pulse Ox O2 Delivery O2 Flow Rate FiO2 12/25/16 15:43 98.0 120 18 183/81 95 Room Air General Appearance: A 61 male year-old male who appears well-developed, well- nourished, in no acute distress. HEENT: Head normocephalic, atraumatic. Pupils equal, round, reactive to light and accommodate. Sclerae are no jaundice. Nasal turbinates pink without erythema or nasal discharge. Mucous membranes pink and moist without lesions. Oropharynx clear without any exudate or discharge. NECK: Supple. Trachea midline, No thyromegaly, No cervical lymphadenopathy, No mass, No carotid bruits, No JVD, Carotid pulses 2+ bilaterally. PULMONARY: Clear to auscultaion bilaterally, No retractions, Chest expansion symmetric bilaterally, no rales, no ronchi, no dulness on percussion. CARDIAC: Normal SI and S2, Regular rate and rythm, no murmur, gallop, or rub. GASTROINTESTINAL: Abdomen is soft, non-tender, Non Rigid, No distention, Positive bowel sounds x4 quadrants, Liver normal. Incision of recent surgery, minimal redness, minimal tenderness, no bleeding or discharge, SKIN: Warm, dry, no rash, no bruise, no echmosis. EXTREMITIES: Bilateral lower extremities normal, no edema, no phlabitus, pulse palpable, no contracture. MUSCULOSKELETAL: Spine Normal, Non-tender, Normal range of motion, No swelling, no deformity, no clubbing, or cyanosis, the patient has no edema to bilateral lower extremities, dorsalis pedis pulses palpable bilaterally. NEUROLOGIC: The patient is awake, alert, oriented, responding to yes/no questions appropriately, moving all extremities, cranial nerve intact, normal strenght, normal power, normal coordination, normal gait. Allergies Coded Allergies: No Known Allergy (Unverified , 11/02/16) PMH No smoking, no drinking, Social Hx Noncontributory Family Hx Noncontributory Assessment/Plan Impression Status post small bowel resection/hypertension/COPD/PUD Plan Continue all medication, patient has all the supply, Patient encouraged to follow with the primary care physician, and surgery, Patient has slightly elevated blood pressure, patient is taking blood pressure medication, Atenolol 25 mg p.o. daily #30 will monitor the blood pressure Wound care nurse to follow the wound, Medications Home Meds Active Scripts [Oxycodone/Acetamin (5/325)] 1 TAB TAB No Conflict Check, 2 TAB PO Q4H Y for PAIN, #30 Prov:MARIANA ELY MD 12/19/16 Prednisone* (Prednisone*) 20 Mg Tab, 40 MG PO DAILY for 20 Days, TAB Prov:MARIANA ELY MD 12/19/16 Reported Medications Gabapentin* (Gabapentin*) 300 Mg Capsule, 600 MG PO TID, #180 CAP 12/10/16 Beclomethasone Dip* (Qvar 80*) 7.3 Gm Inha, 2 PUFF INH BID, #1 INHALER 11/19/16 Dicyclomine Hcl* (Bentyl*) 10 Mg Capsule, 20 MG PO BID, CAP 11/19/16 Metoclopramide Hcl* (Metoclopramide Hcl*) 5 Mg Tablet, 5 MG PO Q6H Y for NAUSEA AND OR VOMITING, TAB 11/19/16 Methocarbamol* (Methocarbamol*) 500 Mg Tablet, 500 MG PO Q8, TAB 11/19/16 Albuterol/Ipratropium* (Combivent Respimat*) 20-100 Mcg/Inh - 4 Gm Aer.w.adap, 2 PUFF INHALATION DAILY, #1 INHALER 11/19/16 Omeprazole* (Omeprazole*) 20 Mg Capsule.dr, 20 MG PO DAILY, #30 CAP 11/02/16 Lisinopril* (Lisinopril*) 40 Mg Tablet, 40 MG PO DAILY, #30 TAB 11/02/16 Loratadine* (Claritin*) 10 Mg Capsule, 10 MG PO DAILY, CAP 11/02/16 Citalopram Hydrobromide* (Citalopram Hydrobromide*) 40 Mg Tablet, 40 MG PO DAILY , #30 TAB 11/02/16 Aspirin* (Aspirin* Chew) 81 Mg Tab.chew, 81 MG PO DAILY, TAB.CHEW 11/02/16 ABRAN DOLAN MD December 25, 2016 16:01
== END 2016-12-25 16:31 | disposition home or self-care (01) ==
LOC: DCC 15:34
PROVIDERS: ATTEND Internal Medicine
DX: K27.9 Peptic ulcer, site unspecified, unspecified as acute or chronic, without hemorrhage or perforation (principal); I10 Essential (primary) hypertension; J44.9 Chronic obstructive pulmonary disease, unspecified; K56.60 Unspecified intestinal obstruction

== ENCOUNTER 2017-01-01 14:57 | Outpatient (CLI) | payer OTHER ==
[~2017-01-01] VITALS: Ht 177.8 cm; Wt 69.1 kg
[2017-01-01 14:58] VITALS: BP 170/79; PULSE 100; RESP 18; Ht 177.8 cm; Wt 69.1 kg
--- NOTE | 2017-01-01 16:17 | PN ---
Date/Time of Note Date/Time of Note DATE: 01/01/17 TIME: 16:13 Outpatient Progress Note Chief Complaint Small bowel obstruction/hypertension/COPD/PUD HPI Patient has small bowel obstruction, patient had surgery, patient denies any abdominal pain, no nausea or vomiting, patient still has slight loose stool, patient had one formed stool recently, no blood or mucus in the stool, Hypertension/denies any headache or dizziness, no lightheadedness, patient states patient nervous and anxious because of friends , blood pressure slightly elevated, discussed with the patient, his blood pressure remains elevated at home to contact us, COPD/no cough expectoration or hemoptysis or wheezing, PUD/no nausea or vomiting, no abdominal pain, Review of Systems Const: No Fever, no chills, no Wt. loss, no Fatigue, normal appetite, no diaphoresis. Eyes: No pain, no discharge, no redness, no visual change, no foreign body. ENT: No pain, no bleeding, no congestion, no sore throat, no dysphagia, no discharge or rhinitis. Lymph: No adenopathy, no tender nodes, no lymphedema. Resp: No SOB, no cough, no sputum, no wheezing, no chest pain. CV: No chest pain, no palpitaions, no GARCIA, no PND, no edema. GI: Normal appetite, no pain, no nausea, no vomiting, no diarrhea, no blood, no constipation. Status post abdominal surgery, incision wound clean, no bleeding or discharge, no redness, : No frequency, no urgency, no dysuria, no hematuria, no flank pain, no discharge, no bleeding. Musc: No bone/joint pain, no back pain, no neck pain, no knee pain, no restricted ROM. Skin: No rash, no skin lesions, no erythema, no laceration, no bruising, no pruritus. Neuro: No BIANCHI, no dizziness, no syncope, no seizure, no focal-weakness. Endo: No polyuria, no polydypsia, no dry-skin, no temp-intolerance. Psych: No hallucinations, no depression, no anxiety, no suicidal ideation. Ext: No edema, no pain, no ulcer, no weakness. Physical Exam Vital Signs Date Time Temp Pulse Resp B/P Pulse Ox O2 Delivery O2 Flow Rate FiO2 01/01/17 14:58 98.0 100 18 170/79 97 Room Air General Appearance: A 61 year-old male who appears well-developed, well- nourished, in no acute distress. HEENT: Head normocephalic, atraumatic. Pupils equal, round, reactive to light and accommodate. Sclerae are no jaundice. Nasal turbinates pink without erythema or nasal discharge. Mucous membranes pink and moist without lesions. Oropharynx clear without any exudate or discharge. NECK: Supple. Trachea midline, No thyromegaly, No cervical lymphadenopathy, No mass, No carotid bruits, No JVD, Carotid pulses 2+ bilaterally. PULMONARY: Clear to auscultaion bilaterally, No retractions, Chest expansion symmetric bilaterally, no rales, no ronchi, no dulness on percussion. CARDIAC: Normal SI and S2, Regular rate and rythm, no murmur, gallop, or rub. GASTROINTESTINAL: Abdomen is soft, non-tender, Non Rigid, No distention, Positive bowel sounds x4 quadrants, Liver normal. Status post abdominal surgery, wound clean, no bleeding discharge or redness, no tenderness, no bleeding, SKIN: Warm, dry, no rash, no bruise, no echmosis. No cellulitis around the wound, EXTREMITIES: Bilateral lower extremities normal, no edema, no phlabitus, pulse palpable, no contracture. MUSCULOSKELETAL: Spine Normal, Non-tender, Normal range of motion, No swelling, no deformity, no clubbing, or cyanosis, the patient has no edema to bilateral lower extremities, dorsalis pedis pulses palpable bilaterally. NEUROLOGIC: The patient is awake, alert, oriented, responding to yes/no questions appropriately, moving all extremities, cranial nerve intact, normal strenght, normal power, normal coordination, normal gait. Allergies Coded Allergies: No Known Allergy (Unverified , 11/02/16) PMH No change Social Hx No change Family Hx No change Assessment/Plan Impression SBO/status post surgery Hypertension COPD PUD Plan Patient education done, patient to keep the wound clean, and dress daily, Patient to follow with the surgery, Patient to follow with the primary care physician: Patient has all the medication, Patient not to lift any heavy stuff for next few weeks, Medications Home Meds Reported Medications Gabapentin* (Gabapentin*) 300 Mg Capsule, 600 MG PO TID, #180 CAP 12/10/16 Beclomethasone Dip* (Qvar 80*) 7.3 Gm Inha, 2 PUFF INH BID, #1 INHALER 11/19/16 Dicyclomine Hcl* (Bentyl*) 10 Mg Capsule, 20 MG PO BID, CAP 11/19/16 Metoclopramide Hcl* (Metoclopramide Hcl*) 5 Mg Tablet, 5 MG PO Q6H Y for NAUSEA AND OR VOMITING, TAB 11/19/16 Methocarbamol* (Methocarbamol*) 500 Mg Tablet, 500 MG PO Q8, TAB 11/19/16 Albuterol/Ipratropium* (Combivent Respimat*) 20-100 Mcg/Inh - 4 Gm Aer.w.adap, 2 PUFF INHALATION DAILY, #1 INHALER 11/19/16 Omeprazole* (Omeprazole*) 20 Mg Capsule.dr, 20 MG PO DAILY, #30 CAP 11/02/16 Lisinopril* (Lisinopril*) 40 Mg Tablet, 40 MG PO DAILY, #30 TAB 11/02/16 Loratadine* (Claritin*) 10 Mg Capsule, 10 MG PO DAILY, CAP 11/02/16 Citalopram Hydrobromide* (Citalopram Hydrobromide*) 40 Mg Tablet, 40 MG PO DAILY , #30 TAB 11/02/16 Aspirin* (Aspirin* Chew) 81 Mg Tab.chew, 81 MG PO DAILY, TAB.CHEW 11/02/16 Discontinued Scripts [Oxycodone/Acetamin (5/325)] 1 TAB TAB No Conflict Check, 2 TAB PO Q4H Y for PAIN, #30 Prov:MARIANA ELY MD 12/19/16 Prednisone* (Prednisone*) 20 Mg Tab, 40 MG PO DAILY for 20 Days, TAB Prov:MARIANA ELY MD 12/19/16 ABRAN DOLAN MD January 01, 2017 16:16
== END 2017-01-01 16:52 | disposition home or self-care (01) ==
LOC: DCC 14:57
PROVIDERS: ATTEND Internal Medicine
DX: K56.60 Unspecified intestinal obstruction (principal); J44.9 Chronic obstructive pulmonary disease, unspecified; I10 Essential (primary) hypertension; K27.9 Peptic ulcer, site unspecified, unspecified as acute or chronic, without hemorrhage or perforation

== ENCOUNTER 2017-04-16 11:32 | Emergency (ER) | payer OTHER ==
[~2017-04-16] VITALS: Wt 77.0 kg
[~2017-04-16 11:32] MED LIST changes: -Oxycodone/Acetamin (5/325) PO; -PRED20TA PO
[2017-04-16 15:03] LABS: BASOPHILS % 0.3 % (0.0-2.0); EOSINOPHILS # 0.1 10^3/ul (0.0-0.5); EOSINOPHILS % 1.8 % (0.0-7.0); HEMOGLOBIN 11.7 g/dl (14.0-18.0); LYMPHOCYTES # 1.8 10^3/ul (0.8-2.9); LYMPHOCYTES % 26.8 % (15.0-51.0); MEAN CORPUSCULAR HEMOGLOBIN 32.5 pg (29.0-33.0); MEAN CORPUSCULAR HGB CONC 34.4 g/dl (32.0-37.0); MEAN CORPUSCULAR VOLUME 94.4 fl (82.0-101.0); MEAN PLATELET VOLUME 9.7 fl (7.4-10.4); MONOCYTE # 0.6 10^3/ul (0.3-0.9); MONOCYTES % 8.8 % (0.0-11.0); NEUTROPHILS % 61.9 % (39.0-77.0); PLATELET COUNT 202 10^3/UL (140-415); RED CELL DISTRIBUTION WIDTH 12.8 % (11.5-14.5); WHITE BLOOD COUNT 6.7 10^3/ul (4.8-10.8)
[2017-04-16 15:25] LABS: ACETAMINOPHEN < 10.0 ug/ml (10.0-30.0); ALANINE AMINOTRANSFERASE 30 IU/L (13-69); ALBUMIN 4.2 g/dl (3.3-4.9); ALBUMIN/GLOBULIN RATIO 1.31; ALKALINE PHOSPHATASE 69 IU/L (42-121); ANION GAP 18 (8-16); ASPARTATE AMINO TRANSFERASE 21 IU/L (15-46); BILIRUBIN,INDIRECT 0.3 mg/dl (0-1.1); BILIRUBIN,TOTAL 0.3 mg/dl (0.2-1.3); BLOOD UREA NITROGEN 15 mg/dl (7-20); CALCIUM 9.2 mg/dl (8.4-10.2); CARBON DIOXIDE 27 mmol/L (21-31); CHLORIDE 101 mmol/L (97-110); CREATININE 1.05 mg/dl (0.61-1.24); ETHANOL < 10.0 mg/dl; GLUCOSE 107 mg/dl (70-220); POTASSIUM 3.4 mmol/L (3.5-5.1); SALICYLATE < 1.0 mg/dl (5.0-30.0); SODIUM 143 mmol/L (135-144); TOTAL PROTEIN 7.4 g/dl (6.1-8.1)
[2017-04-16 15:41] LABS: BARBITURATES Negative (NEGATIVE); BENZODIAZEPINES Positive (NEGATIVE); CANNABINOIDS Negative (NEGATIVE); COCAINE Negative (NEGATIVE); OPIATES Negative (NEGATIVE)
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
[2017-04-16] MEDS ORDERED: TAMS-14 PO (19:27)
[2017-04-16] MEDS ORDERED: GABA-526 PO (19:31)
[2017-04-16] MEDS ORDERED: LORAZEPAM 1 MG TAB PO ONE (20:00)
[2017-04-16] MEDS ORDERED: DIPHENHYDRAMINE 25 MG CAP PO ONE (20:00)
[2017-04-16] MEDS ORDERED: OLANZAPINE 5 MG TAB PO ONE (20:00)
[2017-04-17 06:00] VITALS: BP 128/72; PULSE 88; RESP 18; TEMP 98.2
--- NOTE | 2017-04-17 08:49 | QN ---
Documentation Comment The patient has been accepted to [facility]. The patient was placed on the 5150 hold. Pending transfer at this time. FRANKI MCGRATH MD Apr 17, 2017 08:49
[2017-04-17] MEDS ORDERED: LISINOPRIL 20 MG TAB PO ONE (10:00)
== END 2017-04-17 10:00 ==
LOC: E/R 11:32
DX: F23 Brief psychotic disorder (principal); I10 Essential (primary) hypertension; J44.9 Chronic obstructive pulmonary disease, unspecified; Z79.82 Long term (current) use of aspirin
CPT/HCPCS: 80053; 80306; 80307; 85025; Z7502; Z7610

== ENCOUNTER 2017-11-13 02:09 | Inpatient (IN) | END 2017-11-19 | disposition EXP | DRG 64 ==